=== PATIENT | male | born 1960 | race Caucasian/White ===

== ENCOUNTER 2016-04-06 11:51 | Inpatient (IN) | payer MEDICARE, OTHER ==
[2016-04-06] MEDS ORDERED: SODIUM CHLORIDE 0.9% 1,000 ML IV STA ×2 (13:09→14:30)
[2016-04-06] MEDS ORDERED: LORazepam 2 MG/ML SYRINGE IV STA (13:09)
--- NOTE | 2016-04-06 13:50 | ED ---
General Adult HPI - General Chief complaint: Nausea/Vomiting/Diarrhea Stated complaint: weakness/vomiting Time Seen by Provider: 04/06/16 13:01 Source: patient, RN notes reviewed Mode of arrival: wheelchair Limitations: no limitations - History of Present Illness Initial comments: 56-year-old male presents to the emergency department with a chief complaint of nausea and vomiting. Patient states that he is alcoholic. Patient states that 3 days ago. Alcohol he has not been drinking for 3 days. Patient states that now he cannot keep anything down there is anything symptoms patient also states he feels like he is going to have a seizure. Patient admits to history of withdrawal alcohol seizures. Patient states he was clean for about 10 years 1 but he started drinking again due to her life situations. Patient states that she is going through withdrawals and he needs help with this. Patient denies any abdominal pain any fevers. Patient states he has not yet had a seizure related to third denies any fever chills with this. Patient states he is not currently having any other symptoms at this time. Patient denies any suicidal or homicidal thoughts. Patient denies any recent fever, chills, shortness of breath, chest pain, back pain, abdominal pain, numbness or tingling, dysuria or hematuria, constipation or diarrhea, headaches or visual changes, or any other current symptoms. - Related Data Home Medications Medication Instructions Recorded Confirmed Amitriptyline HCl [Elavil] 100 - 200 mg PO HS 04/06/16 04/06/16 Cephalexin [Keflex] 500 mg PO BID 04/06/16 04/06/16 Diphenoxylate HCl/Atropine 1 tab PO Q4H PRN 04/06/16 04/06/16 [Lomotil] Famotidine [Pepcid] 40 mg PO BID 04/06/16 04/06/16 Lidocaine Viscous [Xylocaine 5 ml PO Q6H PRN 04/06/16 04/06/16 Viscous 2%] Loperamide [Imodium] 4 mg PO BID PRN 04/06/16 04/06/16 Allergies Allergy/AdvReac Type Severity Reaction Status Date / Time coconut Allergy Unknown Verified 04/06/16 13:48 milk Allergy Unknown Verified 04/06/16 13:48 peanut [Peanut Butter] Allergy Unknown Verified 04/06/16 13:48 SAW DUST Allergy Unknown Uncoded 04/06/16 11:53 Review of Systems ROS Statement: Those systems with pertinent positive or pertinent negative responses have been documented in the HPI. ROS Other: All systems not noted in ROS Statement are negative. Past Medical History Past Medical History: Cancer, GERD/Reflux, GI Bleed, Liver Disease, Seizure Disorder, Skin Disorder Additional Past Medical History / Comment(s): HX TORN ESOPHAGUS/UPPER GI BLEED, TY- KUMAR SYNDROME, MANY SEIZURES from alcohol withdrawal-LONG HX OF ETOH ABUSE MULTIPLE HEAD INJURIES, chrohns, pancreatitis, DJD,RT NEPHROSIS, pt stated used to take a pill for diabetes but no longer takes med TINNITUS C-DIFF --15. Left shoulder dislocation BUT PLACED BACK IN-"BALL IS BROKE", states fell 3 weeks ago and pt states "feels stomach is pushing into diaphragm". Skin CA-2 time removal-"years ago." History of Any Multi-Drug Resistant Organisms: C-DIFF, MRSA Date of last positivie culture/infection: 2014 MDRO Source:: lungs, groin wound Past Surgical History: Hernia Repair, Tonsillectomy Additional Past Surgical History / Comment(s): neck fusion 6 or 7 yrs ago, Skin cancer removal on face-benign "years ago." vasectomy,rt hand ganglion cystectomy , numerous cysts removed.colonoscopy Past Anesthesia/Blood Transfusion Reactions: No Reported Reaction Additional Past Anesthesia/Blood Transfusion Reaction / Comment(s): PT HAS NEVER RECEIVED BLOOD. Past Psychological History: Anxiety, Depression Additional Psychological History / Comment(s): PT STATED HE LIVES IN [facility] IN [place], ADMITS TO DRIONKING A FIFTH OF ALCOHOL PER DAY. denies any depression or thoughts of harming self. Smoking Status: Current every day smoker Past Alcohol Use History: Occasional Additional Past Alcohol Use History / Comment(s): smokes 1.5 PPD; Past Drug Use History: None Reported Additional Drug Use History / Comment(s): Pt. denies drug ABUSE - Past Family History Father Family Medical History: No Reported History Additional Family Medical History / Comment(s): FATHER IS ALIVE AND HEALTHY. Mother Family Medical History: CVA/TIA Additional Family Medical History / Comment(s): mother of a cva at age 75 years General Exam - General Exam Comments Initial Comments: General: The patient is awake and alert, in no distress, and does not appear acutely ill. Eye: Pupils are equal, round and reactive to light, extra-ocular movements are intact; there is normal conjunctiva bilaterally. No signs of icterus. Ears, nose, mouth and throat: There are moist mucous membranes and no oral lesions. Neck: The neck is supple, there is no tenderness Cardiovascular: There is a tachycardia with regular rhythm. No murmur, rub or gallop is appreciated. Respiratory: Lungs are clear to auscultation, respirations are non-labored, breath sounds are equal. No wheezes, stridor, rales, or rhonchi. Gastrointestinal: Soft, non-distended, non-tender abdomen without masses or organomegaly noted. There is no rebound or guarding present. No CVA tenderness. Bowel sounds are unremarkable. Back: There is no tenderness to palpation in the midline. There is no obvious deformity. No rashes noted. Musculoskeletal: Normal ROM, no tenderness, There is no pedal edema. There is no calf tenderness or swelling. Sensation intact. Pulses equal bilaterally 2+. Neurological: CN II-XII intact, There are no obvious motor or sensory deficits. Coordination appears grossly intact. Speech is normal. Skin: Skin is warm and dry and no rashes or lesions are noted. Psychiatric: Cooperative, appropriate mood & affect, normal judgment. Limitations: no limitations Course Vital Signs 04/06/16 04/06/16 11:53 15:25 Temperature 98.4 F 99.8 F H Pulse Rate 120 H 95 Respiratory 28 H 18 Rate Blood Pressure 174/82 176/83 O2 Sat by Pulse 98 98 Oximetry Medical Decision Making - Medical Decision Making 56-year-old male emergency department with a chief complaint presents emergency Department chief complaint of alcohol withdrawal. Patient does appear to be in alcoholic ketoacidosis. This time she was hydrated and repeat labs were taken patient continues to have an elevated lactic acid. 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 We will start patient on fluids as well as alcohol withdrawal protocol. Patient is in agreement with the plan. - Lab Data Result diagrams: 04/06/16 13:24 04/06/16 17:42 Lab Results 04/06/16 04/06/16 04/06/16 Range/Units 13:24 13:24 13:24 WBC 11.7 H (3.8-10.6) k/uL RBC 4.96 (4.30-5.90) m/uL Hgb 17.4 (13.0-17.5) gm/dL Hct 50.0 (39.0-53.0) % MCV 100.9 H (80.0-100.0) fL MCH 35.1 H (25.0-35.0) pg MCHC 34.8 (31.0-37.0) g/dL RDW 14.5 (11.5-15.5) % Plt Count 199 (150-450) k/uL Neutrophils % 79 % Lymphocytes % 14 % Monocytes % 4 % Eosinophils % 0 % Basophils % 1 % Neutrophils # 9.2 H (1.3-7.7) k/uL Lymphocytes # 1.6 (1.0-4.8) k/uL Monocytes # 0.5 (0-1.0) k/uL Eosinophils # 0.0 (0-0.7) k/uL Basophils # 0.1 (0-0.2) k/uL Macrocytosis Slight PT 11.0 (9.0-12.0) sec INR 1.1 (<1.1) APTT 23.2 (22.0-30.0) sec Sodium 134 L (137-145) mmol/L Potassium 3.6 (3.5-5.1) mmol/L Chloride 84 L (98-107) mmol/L Carbon Dioxide 13 L (22-30) mmol/L Anion Gap 37 mmol/L BUN 13 (9-20) mg/dL Creatinine 0.76 (0.66-1.25) mg/dL Est GFR (MDRD) Af Amer >60 (>60 ml/min/1.73 sqM) Est GFR (MDRD) Non-Af >60 (>60 ml/min/1.73 sqM) Glucose 134 H (74-99) mg/dL Plasma Lactic Acid Evan (0.7-2.0) mmol/L Calcium 9.7 (8.4-10.2) mg/dL Total Bilirubin 1.7 H (0.2-1.3) mg/dL AST 90 H (17-59) U/L ALT 50 (21-72) U/L Alkaline Phosphatase 115 (38-126) U/L Total Protein 8.3 H (6.3-8.2) g/dL Albumin 5.3 H (3.5-5.0) g/dL Amylase 62 (30-110) U/L Lipase 112 (23-300) U/L Urine Color Urine Appearance (Clear) Urine pH (5.0-8.0) Ur Specific Duncan (1.001-1.035) Urine Protein (Negative) Urine Glucose (UA) (Negative) Urine Ketones (Negative) Urine Blood (Negative) Urine Nitrate (Negative) Urine Bilirubin (Negative) Urine Urobilinogen (<2.0) mg/dL Ur Leukocyte Esterase (Negative) Urine RBC (0-5) /hpf Urine WBC (0-5) /hpf Ur Squamous Epith Cells (0-4) /hpf Urine Bacteria (None) /hpf Hyaline Casts (0-2) /lpf Urine Mucus (None) /hpf Serum Alcohol 141 mg/dL 04/06/16 04/06/16 04/06/16 Range/Units 13:24 15:45 17:42 WBC (3.8-10.6) k/uL RBC (4.30-5.90) m/uL Hgb (13.0-17.5) gm/dL Hct (39.0-53.0) % MCV (80.0-100.0) fL MCH (25.0-35.0) pg MCHC (31.0-37.0) g/dL RDW (11.5-15.5) % Plt Count (150-450) k/uL Neutrophils % % Lymphocytes % % Monocytes % % Eosinophils % % Basophils % % Neutrophils # (1.3-7.7) k/uL Lymphocytes # (1.0-4.8) k/uL Monocytes # (0-1.0) k/uL Eosinophils # (0-0.7) k/uL Basophils # (0-0.2) k/uL Macrocytosis PT (9.0-12.0) sec INR (<1.1) APTT (22.0-30.0) sec Sodium (137-145) mmol/L Potassium (3.5-5.1) mmol/L Chloride (98-107) mmol/L Carbon Dioxide (22-30) mmol/L Anion Gap mmol/L BUN (9-20) mg/dL Creatinine (0.66-1.25) mg/dL Est GFR (MDRD) Af Amer (>60 ml/min/1.73 sqM) Est GFR (MDRD) Non-Af (>60 ml/min/1.73 sqM) Glucose (74-99) mg/dL Plasma Lactic Acid Eavn 4.4 H* 2.6 H* (0.7-2.0) mmol/L Calcium (8.4-10.2) mg/dL Total Bilirubin (0.2-1.3) mg/dL AST (17-59) U/L ALT (21-72) U/L Alkaline Phosphatase (38-126) U/L Total Protein (6.3-8.2) g/dL Albumin (3.5-5.0) g/dL Amylase (30-110) U/L Lipase (23-300) U/L Urine Color Yellow Urine Appearance Clear (Clear) Urine pH 6.0 (5.0-8.0) Ur Specific Duncan 1.016 (1.001-1.035) Urine Protein 2+ H (Negative) Urine Glucose (UA) Negative (Negative) Urine Ketones 4+ H (Negative) Urine Blood Small H (Negative) Urine Nitrate Negative (Negative) Urine Bilirubin Negative (Negative) Urine Urobilinogen <2.0 (<2.0) mg/dL Ur Leukocyte Esterase Negative (Negative) Urine RBC <1 (0-5) /hpf Urine WBC 1 (0-5) /hpf Ur Squamous Epith Cells <1 (0-4) /hpf Urine Bacteria Rare H (None) /hpf Hyaline Casts 15 H (0-2) /lpf Urine Mucus Rare H (None) /hpf Serum Alcohol mg/dL 04/06/16 Range/Units 17:42 WBC (3.8-10.6) k/uL RBC (4.30-5.90) m/uL Hgb (13.0-17.5) gm/dL Hct (39.0-53.0) % MCV (80.0-100.0) fL MCH (25.0-35.0) pg MCHC (31.0-37.0) g/dL RDW (11.5-15.5) % Plt Count (150-450) k/uL Neutrophils % % Lymphocytes % % Monocytes % % Eosinophils % % Basophils % % Neutrophils # (1.3-7.7) k/uL Lymphocytes # (1.0-4.8) k/uL Monocytes # (0-1.0) k/uL Eosinophils # (0-0.7) k/uL Basophils # (0-0.2) k/uL Macrocytosis PT (9.0-12.0) sec INR (<1.1) APTT (22.0-30.0) sec Sodium 134 L (137-145) mmol/L Potassium 4.3 (3.5-5.1) mmol/L Chloride 93 L (98-107) mmol/L Carbon Dioxide 18 L (22-30) mmol/L Anion Gap 23 mmol/L BUN 11 (9-20) mg/dL Creatinine 0.62 L (0.66-1.25) mg/dL Est GFR (MDRD) Af Amer >60 (>60 ml/min/1.73 sqM) Est GFR (MDRD) Non-Af >60 (>60 ml/min/1.73 sqM) Glucose 102 H (74-99) mg/dL Plasma Lactic Acid Evan (0.7-2.0) mmol/L Calcium 7.8 L (8.4-10.2) mg/dL Total Bilirubin 1.6 H (0.2-1.3) mg/dL AST 81 H (17-59) U/L ALT 49 (21-72) U/L Alkaline Phosphatase 76 (38-126) U/L Total Protein 6.8 (6.3-8.2) g/dL Albumin 4.2 (3.5-5.0) g/dL Amylase (30-110) U/L Lipase (23-300) U/L Urine Color Urine Appearance (Clear) Urine pH (5.0-8.0) Ur Specific Duncan (1.001-1.035) Urine Protein (Negative) Urine Glucose (UA) (Negative) Urine Ketones (Negative) Urine Blood (Negative) Urine Nitrate (Negative) Urine Bilirubin (Negative) Urine Urobilinogen (<2.0) mg/dL Ur Leukocyte Esterase (Negative) Urine RBC (0-5) /hpf Urine WBC (0-5) /hpf Ur Squamous Epith Cells (0-4) /hpf Urine Bacteria (None) /hpf Hyaline Casts (0-2) /lpf Urine Mucus (None) /hpf Serum Alcohol mg/dL Disposition Clinical Impression: Alcohol abuse, Alcoholic ketoacidosis Disposition: ADMITTED IP TO THIS HOSP Condition: Stable Time of Disposition: 18:37 Decision Date: 04/06/16 Decision Time: 18:37
[2016-04-06 13:56] LABS: Basophils # (A) 0.1 k/uL (0-0.2); Basophils % (A) 1 %; CH 35.7; CHCM 35.5; Eosinophils % (A) 0 %; HDW 2.11; HGB 17.4 gm/dL (13.0-17.5); Luc # (Auto) 0.18; Luc % (Auto) 2; Lymphocytes # (A) 1.6 k/uL (1.0-4.8); Lymphocytes % (A) 14 %; MCH 35.1 pg (25.0-35.0); MCHC 34.8 g/dL (31.0-37.0); MCV 100.9 fL (80.0-100.0); Macrocytosis Slight; Monocytes # (A) 0.5 k/uL (0-1.0); Monocytes % (A) 4 %; Neutrophils # (A) 9.2 k/uL (1.3-7.7); Neutrophils % (A) 79 %; RBC 4.96 m/uL (4.30-5.90); RDW 14.5 % (11.5-15.5); WBC 11.7 k/uL (3.8-10.6); WBC (Perox) 10.68
[2016-04-06 14:12] LABS: INR 1.1 (<1.1); Partial Thromboplastin Time 23.2 sec (22.0-30.0)
[2016-04-06 14:24] LABS: ALT 50 U/L (21-72); AST 90 U/L (17-59); Alkaline Phosphatase 115 U/L (38-126); Amylase 62 U/L (30-110); Anion Gap 37 mmol/L; Blood Urea Nitrogen 13 mg/dL (9-20); Calcium 9.7 mg/dL (8.4-10.2); Carbon Dioxide 13 mmol/L (22-30); Chloride 84 mmol/L (98-107); Glucose 134 mg/dL (74-99); Non-African American GFR(MDRD) >60 (>60 ml/min/1.73 sqM); Potassium 3.6 mmol/L (3.5-5.1); Sodium 134 mmol/L (137-145); Total Bilirubin 1.7 mg/dL (0.2-1.3); Total Protein 8.3 g/dL (6.3-8.2)
[2016-04-06 14:32] LABS: Alcohol 141 mg/dL
--- NOTE | 2016-04-06 15:20 | XR ---
Abdomen 2 view HISTORY: Nausea vomiting and diarrhea 2 frontal views of the abdomen on 3 images Correlation to prior abdomen November Splenic calcifications are again noted. There is no bowel obstruction or pneumoperitoneum evident. Blevins rgical clips are present in the right lower quadrant. Lung bases are clear. IMPRESSION: No acute abnormalities evident
[2016-04-06 15:57] LABS: Appearance,Urine Clear (Clear); Bacteria,Urine Rare /hpf; Bilirubin,Urine Negative (Negative); Glucose,Urine (UA) Negative (Negative); Ketones,Urine 4+ (Negative); Leukocyte Esterase,Urine Negative (Negative); Mucus,Urine Rare /hpf; Nitrite,Urine Negative (Negative); Particle Count 14386; Protein,Urine 2+ (Negative); RBC,Urine <1 /hpf (0-5); Specific Gravity,Urine 1.016 (1.001-1.035); Squamous Epithelial Cell,Urine <1 /hpf (0-4); UA Billing (MACRO vs. MICRO) MICRO; Urobilinogen,Urine <2.0 mg/dL (<2.0); WBC,Urine 1 /hpf (0-5)
[2016-04-06] MEDS ORDERED: PANTOPRAZOLE 40 MG/10 ML VIAL IVP STA (16:19)
[2016-04-06 17:57] LABS: ALT 49 U/L (21-72); AST 81 U/L (17-59); Alkaline Phosphatase 76 U/L (38-126); Anion Gap 23 mmol/L; Blood Urea Nitrogen 11 mg/dL (9-20); Calcium 7.8 mg/dL (8.4-10.2); Carbon Dioxide 18 mmol/L (22-30); Chloride 93 mmol/L (98-107); Glucose 102 mg/dL (74-99); Non-African American GFR(MDRD) >60 (>60 ml/min/1.73 sqM); Sodium 134 mmol/L (137-145); Total Bilirubin 1.6 mg/dL (0.2-1.3); Total Protein 6.8 g/dL (6.3-8.2)
[2016-04-06 17:59] LABS: Potassium 4.3 mmol/L (3.5-5.1)
[2016-04-06] MEDS ORDERED: NALOXONE 0.4 MG/ML 1 ML VIAL IV PRN (18:37)
[2016-04-06] MEDS ORDERED: IBUPROFEN 400 MG TAB PO PRN (18:37)
[2016-04-06] MEDS ORDERED: ONDANSETRON 4 MG/2 ML VIAL IVP PRN (18:37)
[2016-04-06] MEDS ORDERED: THIAMINE 100 MG/ML 2 ML VIAL IM STA (18:38)
[2016-04-06] MEDS ORDERED: LORazepam 2 MG/ML SYRINGE IV PRN ×2 (18:38)
[2016-04-06] MEDS ORDERED: DIPHENOX-ATROP 2.5-0.025 MG 1 EACH TAB PO PRN (18:39)
[2016-04-06] MEDS ORDERED: LOPERAMIDE 2 MG CAP PO PRN (18:39)
[2016-04-06] MEDS ORDERED: SODIUM CHLORIDE 0.9% 1,000 ML with MVI, ADULT NO.4 WITH VIT K 10 ML, THIAMINE 100 MG, F... IV ONE ×4 (19:00)
[2016-04-06] MEDS: LORazepam 2 MG/ML SYRINGE IV PRN ×2 (19:53→22:18)
[2016-04-06 20:38] LABS: Glucose,Whole Blood 114 mg/dL (75-99)
[2016-04-06 21:33] VITALS: BMI 21.2
[2016-04-06] MEDS: SODIUM CHLORIDE 0.9% 1,000 ML IV SCH (21:34)
[2016-04-06] MEDS: FAMOTIDINE 20 MG TAB PO SCH (22:16)
[2016-04-06] MEDS: AMITRIPTYLINE HCL 50 MG TAB PO SCH (22:16)
[2016-04-06] MEDS: THIAMINE 100 MG TAB PO SCH (22:17)
[2016-04-07] MEDS: LORazepam 2 MG/ML SYRINGE IV PRN ×3 (04:01→21:41)
[2016-04-07 07:35] LABS: Glucose,Whole Blood 102 mg/dL (75-99)
[2016-04-07] MEDS: SODIUM CHLORIDE 0.9% 1,000 ML IV SCH ×4 (07:37→17:32)
[2016-04-07 07:53] LABS: Basophils # (A) 0.1 k/uL (0-0.2); Basophils % (A) 1 %; CH 35.8; CHCM 34.4; Eosinophils # (A) 0.1 k/uL (0-0.7); Eosinophils % (A) 2 %; HCT 46.5 % (39.0-53.0); HDW 2.11; HGB 15.7 gm/dL (13.0-17.5); Luc # (Auto) 0.11; Luc % (Auto) 1; Lymphocytes # (A) 1.5 k/uL (1.0-4.8); Lymphocytes % (A) 19 %; MCH 35.3 pg (25.0-35.0); MCHC 33.8 g/dL (31.0-37.0); MCV 104.5 fL (80.0-100.0); Macrocytosis Moderate; Monocytes # (A) 0.3 k/uL (0-1.0); Monocytes % (A) 3 %; Neutrophils # (A) 6.1 k/uL (1.3-7.7); Neutrophils % (A) 74 %; RBC 4.45 m/uL (4.30-5.90); RDW 14.4 % (11.5-15.5); WBC 8.2 k/uL (3.8-10.6); WBC (Perox) 8.45
[2016-04-07 08:19] LABS: ALT 47 U/L (21-72); AST 80 U/L (17-59); Alkaline Phosphatase 84 U/L (38-126); Anion Gap 17 mmol/L; Blood Urea Nitrogen 7 mg/dL (9-20); Calcium 7.7 mg/dL (8.4-10.2); Carbon Dioxide 26 mmol/L (22-30); Chloride 92 mmol/L (98-107); Glucose 99 mg/dL (74-99); Magnesium 1.4 mg/dL (1.6-2.3); Non-African American GFR(MDRD) >60 (>60 ml/min/1.73 sqM); Potassium 3.1 mmol/L (3.5-5.1); Sodium 135 mmol/L (137-145); Total Bilirubin 1.9 mg/dL (0.2-1.3); Total Protein 6.4 g/dL (6.3-8.2)
[2016-04-07 08:34] LABS: Phosphorous 1.1 mg/dL (2.5-4.5)
[2016-04-07] MEDS: FAMOTIDINE 20 MG TAB PO SCH (08:38)
[2016-04-07 11:58] LABS: Glucose,Whole Blood 160 mg/dL (75-99)
[2016-04-07] MEDS: THIAMINE 100 MG TAB PO SCH ×2 (12:41→15:45)
[2016-04-07] MEDS ORDERED: HYDROmorphone 1 MG/ML 1 ML SYRINGE IVP PRN (15:41)
[2016-04-07] MEDS ORDERED: SODIUM CHLORIDE 0.9% 1,000 ML with POTASSIUM CHLORIDE 40 MEQ IV SCH ×2 (15:45)
[2016-04-07] MEDS: POTAS-SOD-PHOS 278-164-250 MG 1 EACH PACKET PO SCH ×3 (15:45→21:35)
--- NOTE | 2016-04-07 16:16 | XR ---
EXAMINATION TYPE: XR chest 1V portable DATE OF EXAM: 04/07/2016 4:07 PM HISTORY: pneumonia. REFERENCE: Previous study dated 12/04/2015. FINDINGS: There has been a previous ACDF of the lower cervical spine. There are calcified aortopulmonary window lymph nodes. The lungs are clear. Pleural spaces are clear. Heart size is normal. IMPRESSION: NO ACUTE INTRATHORACIC ABNORMALITY.
[2016-04-07 17:17] LABS: Glucose,Whole Blood 120 mg/dL (75-99)
[2016-04-07] MEDS: NICOTINE 14MG/24HR PATCH TRANSDERM SCH (17:28)
[2016-04-07] MEDS: 0.9% NACL WITH KCL 40 MEQ/L 1,000 ML IV SCH (17:55)
[2016-04-07 20:11] LABS: Glucose,Whole Blood 132 mg/dL (75-99)
--- NOTE | 2016-04-07 20:52 | HP ---
DATE OF ADMISSION: 04/06/2016 CHIEF COMPLAINT: Nausea and vomiting. HISTORY OF PRESENT ILLNESS: This 56-year-old gentleman with a past medical history of multiple medical problems including GERD, history of gastrointestinal bleed, history of history of seizure disorder, history of esophageal obstruction, C. difficile, MRSA, being followed by Dr. Olmstead in the outpatient setting was complaining of nausea and vomiting. The patient unable to keep anything down. The patient was drinking a significant amount of alcohol up to 3 days ago according to him. There is no history of any fever, rigors or chills. No history of headache, loss of consciousness. In the ER, the evaluation showed evidence off increased WBC, and as well as possibly acidosis. Alcohol level is 141 still. The patient was admitted for further evaluation and treatment. Multiple electrolytes imbalances was also noted 1.1. There is no history of fever, rigors or chills. No history of headache, loss of consciousness or seizures. PAST MEDICAL HISTORY: History of GERD, history of GI bleed, liver disease and seizure disorder, history of C. dif MRSA. Medications prior to admission include: 1. Atropine 1 tablet q.4 p.r.n. 2. Xylocaine . 3. Pepcid 40 mg p.o. b.i.d. 4. Imodium 4 mg b.i.d. p.r.n. 6. Keflex 500 mg p.o. b.i.d. ALLERGIES: MILK, PEANUTS, SAWDUST. FAMILY HISTORY: No history of heart attacks or strokes in the family. SOCIAL HISTORY: History of smoking on a daily basis, history of alcohol as mentioned earlier. REVIEW OF SYSTEMS: ENT: No diminished hearing. No diminished vision. CARDIOVASCULAR: No angina or palpitations. RESPIRATORY: As mentioned earlier. GASTROINTESTINAL: As mentioned earlier. : No dysuria. Nervous system: No numbness or weakness. ALLERGY/IMMUNOLOGY: No asthma or hayfever. MUSCULOSKELETAL: As mentioned earlier. HEMATOLOGY/ONCOLOGY: No history of anemia. ENDOCRINE: No history of diabetes or hypothyroidism. CONSTITUTIONAL: As mentioned earlier. DERMATOLOGY: Negative. RHEUMATOLOGY: Negative. PSYCHIATRY: As mentioned earlier. PHYSICAL EXAMINATION: The patient is alert and oriented times three. Pulse 88, blood pressure ntd, respirations 18, temperature 98 degrees, pulse ox 95% on room air. HEENT: Conjunctivae normal. Oral mucosa moist. NECK: No jugular venous distention. No carotid bruit. No lymph node enlargement. No thyroid enlargement. CARDIOVASCULAR: S1, S2 muffled. No S3, no S4. RESPIRATORY: Breath sounds diminished at the bases. Bilateral scattered rhonchi and crackles. Expiratory wheezing also present. ABDOMEN: Soft and nontender. No mass palpable. LEGS: No edema. No swelling. CENTRAL NERVOUS SYSTEM: Higher functions as mentioned earlier. Moves all four limbs. Mild diffuse weakness. LYMPHATICS: No lymph nodes palpable in the neck, axillae or groin. SKIN: No ulcer, rash or bleeding. LABS: WBC 8.2, hemoglobin 15.7, sodium 130, potassium 3.1 and phosphorus 1.1. ASSESSMENT: 1. Acute gastritis with severe dehydration. 2. Alcohol intoxication withdrawal. 3. Change in mental status, metabolic encephalopathy, multifactorial. 4. Hypophosphatemia. 5. Hypomagnesemia. 6. Increased bilirubin. 7. Increased AST with possible alcoholic hepatitis, mild. 8. Increased random blood sugar. 9. Hyponatremia. 10. Increased MCV secondary to alcohol. 11. Increased WBC. 12. History of gastroesophageal reflux disease. 13. History of gastrointestinal bleed. 14. History of chronic liver disease. 15. History of seizure disorder. 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 17. History of seizure disorder. 18. History of ETOH. 19. History of nicotine dependence. 20. History of skin cancer. 21. History of Clostridium difficile. 22. History of Methicillin-resistant Staph aureus. 23. Cervical fusion and degenerative joint disease. 24. Anxiety, depression, not otherwise specified. 25. History of continued ongoing nicotine dependence. 26. History of Crohn's disease. 27. History of delirium tremens. 28. Hypokalemia. 29. FULL CODE. RECOMMENDATIONS: In this 56-year-old gentleman who presented with multiple complex medical issues, we will monitor the patient closely. Continue the current medications. Continue symptomatic treatment. Admitted with multiple medical issues, admitted with nausea and vomiting and possibly related to gastritis and dehydration and other multiple complex medical issues. Once the patient symptomatically is also patient also had hypokalemia which will be corrected and as well as hypophosphatemia. This electrolytes abnormalities will be corrected and continued follow-up. Otherwise, continue the rest of the medications. Recommended Protonix. Otherwise, we will resume the home medications. The patient follows with Dr. Olmstead in the outpatient setting. Also recommend the patient follow with Dr. Olmstead closely in the outpatient setting. DVT prophylaxis. See orders for further details. MTDD
[2016-04-07 21:34] VITALS: RESP 16
[2016-04-07] MEDS: AMITRIPTYLINE HCL 50 MG TAB PO SCH (21:34)
[2016-04-07] MEDS: PANTOPRAZOLE 40 MG/10 ML VIAL IVP SCH (21:34)
[2016-04-07] MEDS: POTASSIUM CHLORIDE ER 20 MEQ TAB.ER PO SCH (21:35)
[2016-04-07] MEDS: HEPARIN SODIUM,PORCINE 5,000 UNIT/ML 1 ML VIAL SQ SCH (21:35)
[2016-04-08] MEDS: LORazepam 2 MG/ML SYRINGE IV PRN ×2 (01:53→08:18)
[2016-04-08] MEDS: 0.9% NACL WITH KCL 40 MEQ/L 1,000 ML IV SCH ×2 (05:27→12:57)
[2016-04-08 07:45] LABS: Glucose,Whole Blood 101 mg/dL (75-99)
[2016-04-08 08:11] VITALS: BP 145/85; PULSE 90; TEMP 99
[2016-04-08] MEDS: NICOTINE 14MG/24HR PATCH TRANSDERM SCH (08:12)
[2016-04-08] MEDS: POTAS-SOD-PHOS 278-164-250 MG 1 EACH PACKET PO SCH (08:13)
[2016-04-08] MEDS: POTASSIUM CHLORIDE ER 20 MEQ TAB.ER PO SCH (08:13)
[2016-04-08] MEDS: PANTOPRAZOLE 40 MG/10 ML VIAL IVP SCH (08:13)
[2016-04-08] MEDS: HEPARIN SODIUM,PORCINE 5,000 UNIT/ML 1 ML VIAL SQ SCH (08:13)
[2016-04-08] MEDS ORDERED: Potassium Replacement Protocol 1 EACH MISC MISCELLANE PRN (10:34)
[2016-04-08 11:40] LABS: Glucose,Whole Blood 147 mg/dL (75-99)
[2016-04-08] MEDS ORDERED: FOLIC ACID 1 MG TAB PO SCH (12:00)
[2016-04-08] MEDS ORDERED: MULTIVITAMINS, THERA 1 EACH TAB PO SCH (12:00)
[2016-04-08 12:40] LABS: ALT 75 U/L (21-72); AST 109 U/L (17-59); Alkaline Phosphatase 72 U/L (38-126); Anion Gap 12 mmol/L; Blood Urea Nitrogen 6 mg/dL (9-20); Calcium 7.6 mg/dL (8.4-10.2); Carbon Dioxide 26 mmol/L (22-30); Chloride 96 mmol/L (98-107); Glucose 147 mg/dL (74-99); Non-African American GFR(MDRD) >60 (>60 ml/min/1.73 sqM); Potassium 3.9 mmol/L (3.5-5.1); Sodium 134 mmol/L (137-145); Total Bilirubin 1.7 mg/dL (0.2-1.3); Total Protein 5.9 g/dL (6.3-8.2)
[2016-04-08 12:48] LABS: Basophils % (A) 1 %; CH 35.1; CHCM 34.4; Eosinophils # (A) 0.2 k/uL (0-0.7); Eosinophils % (A) 3 %; HCT 45.2 % (39.0-53.0); HDW 2.11; Luc # (Auto) 0.12; Luc % (Auto) 2; Lymphocytes # (A) 1.7 k/uL (1.0-4.8); Lymphocytes % (A) 27 %; MCH 33.9 pg (25.0-35.0); MCHC 33.2 g/dL (31.0-37.0); MCV 102.4 fL (80.0-100.0); Macrocytosis Slight; Monocytes # (A) 0.3 k/uL (0-1.0); Monocytes % (A) 5 %; Neutrophils % (A) 63 %; RBC 4.41 m/uL (4.30-5.90); WBC 6.3 k/uL (3.8-10.6)
[2016-04-08] MEDS: POTASSIUM CHLORIDE 10 MEQ in WATER FOR INJECTION 1 100ML.BAG IVPB SCH (12:56)
[2016-04-08] MEDS: MAGNESIUM SULFATE-D5W PMX 1 GM in DEXTROSE/WATER 1 100ML.BAG IVPB SCH (12:56)
[2016-04-08] MEDS: THIAMINE 100 MG TAB PO SCH (12:57)
[2016-04-08] MEDS ORDERED: MAG HYDROX/AL HYDROX/SIMETH 30 ML CUP PO SCH (13:00)
--- NOTE | 2016-04-09 08:37 | DS ---
DATE OF ADMISSION: 04/06/2016 DATE OF DISCHARGE: 04/08/2016 A 56-year-old admitted with gastroesophageal reflux disease, alcoholic gastritis and alcohol withdrawal and patient is not requiring too much of Ativan. Patient will be discharged today and his electrolytes will be replaced. The patient's phosphorus is also low as patient is n.p.o., which was supplemented yesterday and once he starts eating it should be okay. His electrolytes will be supplemented. Repeat electrolytes will be obtained and patient will be discharged after that. The patient does have alcoholic gastritis. Patient is seen and examined on the day of discharge. Vitals are stable. PHYSICAL EXAMINATION: GENERAL: The patient is alert and oriented x3, not in any acute distress. Well developed, well nourished. HEENT: Pupils are round and equally reacting to light. EOMI. No scleral icterus. No conjunctival pallor. Normocephalic, atraumatic. No pharyngeal erythema. No thyromegaly. CARDIOVASCULAR: S1 and S2 present. No murmurs, rubs, or gallops. PULMONARY: Chest is clear to auscultation, no wheezing or crackles. ABDOMEN: Soft, nontender, nondistended, normoactive bowel sounds. No palpable organomegaly. MUSCULOSKELETAL: No joint swelling or deformity. EXTREMITIES: No cyanosis, clubbing, or pedal edema. NEUROLOGICAL: Gross neurological examination did not reveal any focal deficits. SKIN: No rashes. Laboratory data was reviewed from yesterday. I will repeat labs for him again considering his significant electrolyte abnormalities. Regarding discharge medications, please refer to my depart summary. DISCHARGE DIET: Low spicy diet, avoid alcohol and caffeine. Activity as tolerated. Alcohol cessation counseling was provided. FINAL DIAGNOSES: 1. Alcoholic gastritis. 2. Alcohol intoxication and patient was watched for withdrawals, monitored for withdrawals. 3. Toxic metabolic encephalopathy, multifactorial secondary to alcoholism and electrolyte abnormalities. 4. Hypomagnesemia secondary to alcoholism. 5. Acute alcoholic hepatitis. 6. Hypovolemic hyponatremia. 7. Macrocytosis secondary to chronic alcohol use. The patient will be discharged today. Spent greater than 35 minutes in total discharge process. Patient will follow with Dr. Olmstead in about 3 to 7 days. Will advance the diet to soft diet today.
[2016-04-09] MEDS ORDERED: PANTOPRAZOLE 40 MG TABLET PO SCH (09:00)
== END 2016-04-08 18:38 | disposition home or self-care (01) | DRG 391 ==
LOC: EC 11:51 → 5MS5E 18:43
PROVIDERS: ADMIT Internal Medicine; ATTEND Internal Medicine
PROC: HZ2ZZZZ Detoxification Services for Substance Abuse Treatment (ICD-10-PCS; principal; 2016-04-06)
DX: K29.20 Alcoholic gastritis without bleeding (principal); G92 Toxic encephalopathy; E87.2 Acidosis; K70.10 Alcoholic hepatitis without ascites; E87.1 Hypo-osmolality and hyponatremia; K50.90 Crohn's disease, unspecified, without complications; F10.239 Alcohol dependence with withdrawal, unspecified; E83.42 Hypomagnesemia; K21.9 Gastro-esophageal reflux disease without esophagitis; F10.229 Alcohol dependence with intoxication, unspecified; D75.89 Other specified diseases of blood and blood-forming organs; K29.00 Acute gastritis without bleeding; E86.0 Dehydration; E87.6 Hypokalemia; E86.1 Hypovolemia; E83.39 Other disorders of phosphorus metabolism; F41.9 Anxiety disorder, unspecified; F32.9 Major depressive disorder, single episode, unspecified; R73.09 Other abnormal glucose; G40.909 Epilepsy, unspecified, not intractable, without status epilepticus; R53.1 Weakness; D72.829 Elevated white blood cell count, unspecified; F17.200 Nicotine dependence, unspecified, uncomplicated; M19.90 Unspecified osteoarthritis, unspecified site; Z91.81 History of falling; Z86.14 Personal history of Methicillin resistant Staphylococcus aureus infection; Z87.19 Personal history of other diseases of the digestive system; Z85.828 Personal history of other malignant neoplasm of skin; Z82.3 Family history of stroke; Z98.1 Arthrodesis status; Z71.41 Alcohol abuse counseling and surveillance of alcoholic; Z87.448 Personal history of other diseases of urinary system; Z87.828 Personal history of other (healed) physical injury and trauma; Z86.19 Personal history of other infectious and parasitic diseases; Z98.52 Vasectomy status; Z16.24 Resistance to multiple antibiotics; Z87.2 Personal history of diseases of the skin and subcutaneous tissue; Z86.69 Personal history of other diseases of the nervous system and sense organs; Z91.011 Allergy to milk products; Z91.010 Allergy to peanuts; Z91.018 Allergy to other foods; Z86.39 Personal history of other endocrine, nutritional and metabolic disease; Z91.048 Other nonmedicinal substance allergy status; Z79.2 Long term (current) use of antibiotics; Z79.899 Other long term (current) drug therapy; Y90.6 Blood alcohol level of 120-199 mg/100 ml
CPT/HCPCS: 36415; 71010; 74020; 80053; 80320; 81001; 82150; 83605; 83690; 83735; 84100; 85025; 85610; 85730; 96361; 96365; 96372; 96375; 99285

== ENCOUNTER 2016-04-25 21:05 | Inpatient (IN) | payer MEDICARE, OTHER ==
[2016-04-25] MEDS ORDERED: SODIUM CHLORIDE 0.9% 1,000 ML IV STA (21:45)
--- NOTE | 2016-04-25 21:53 | ED ---
General Adult HPI - General Chief complaint: Abdominal Pain Stated complaint: abd pain Time Seen by Provider: 04/25/16 21:27 Source: patient, EMS, RN notes reviewed, old records reviewed Mode of arrival: EMS Limitations: no limitations - History of Present Illness Initial comments: Chief complaint history of present illness a 56-year-old male with that she's not alcoholic. Drinking frequently. Fell several days ago in his home. Has a bruise to his right for it. Today he called EMS because when he bent over to put his socks on he had severe pain to the right upper quadrant area. EMS gave 5 mg of morphine en route. No pain at this time. - Related Data Home Medications Medication Instructions Recorded Confirmed Amitriptyline HCl [Elavil] 100 - 200 mg PO HS 04/06/16 04/06/16 Diphenoxylate HCl/Atropine 1 tab PO Q4H PRN 04/06/16 04/06/16 [Lomotil] Lidocaine Viscous [Xylocaine 5 ml PO Q6H PRN 04/06/16 04/06/16 Viscous 2%] Loperamide [Imodium] 4 mg PO BID PRN 04/06/16 04/06/16 Previous Rx's Medication Instructions Recorded LORazepam [Ativan] 1 mg PO TID PRN #20 tab 04/08/16 Omeprazole [PriLOSEC] 40 mg PO AC-BRKFST #14 capsule. 04/08/16 Thiamine [Vitamin B-1] 100 mg PO DAILY #30 tablet 04/08/16 Allergies Allergy/AdvReac Type Severity Reaction Status Date / Time coconut Allergy Unknown Verified 04/06/16 13:48 milk Allergy Unknown Verified 04/06/16 13:48 peanut [Peanut Butter] Allergy Unknown Verified 04/06/16 13:48 SAW DUST Allergy Unknown Uncoded 04/06/16 11:53 Review of Systems ROS Statement: Those systems with pertinent positive or pertinent negative responses have been documented in the HPI. Review of systems. Patient's denying any headache at this time no visual acuity changes denies any chest pain or abdominal pain at this time. No nausea no vomiting no back pain. Does have pain to the ball of his foot on his left foot because of the thinks having stepped on some glass several weeks ago. All systems were reviewed past medical problems insulin-dependent diabetes mellitus , Crohn's, cellulitis treated 14 [facility] several days ago. Also a skin cancer right cheek. Surgeries include hernia repairs and cervical fusion. Family history mother had thyroid cancer. Patient denies ALLERGIES. He does smoke and states she's not alcoholic. He has been through rehabilitation four times. ROS Other: All systems not noted in ROS Statement are negative. Past Medical History Past Medical History: Cancer, GERD/Reflux, GI Bleed, Liver Disease, Seizure Disorder, Skin Disorder Additional Past Medical History / Comment(s): HX TORN ESOPHAGUS/UPPER GI BLEED, TY- KUMAR SYNDROME, MANY SEIZURES from alcohol withdrawal-LONG HX OF ETOH ABUSE MULTIPLE HEAD INJURIES, crohns, pancreatitis, DJD,RT NEPHROSIS, TINNITUS C-DIFF 02-23-15. Left shoulder dislocation BUT PLACED BACK IN-"BALL IS BROKE",. Skin CA-2 time removal-"years ago." History of Any Multi-Drug Resistant Organisms: C-DIFF, MRSA Date of last positivie culture/infection: 2014 MDRO Source:: lungs, groin wound Past Surgical History: Hernia Repair, Tonsillectomy Additional Past Surgical History / Comment(s): neck fusion 6 or 7 yrs ago, Skin cancer removal on face-benign "years ago." vasectomy,rt hand ganglion cystectomy , numerous cysts removed.colonoscopy Past Anesthesia/Blood Transfusion Reactions: No Reported Reaction Additional Past Anesthesia/Blood Transfusion Reaction / Comment(s): PT HAS NEVER RECEIVED BLOOD. Past Psychological History: Anxiety, Depression Additional Psychological History / Comment(s): PT STATED [facility] IN [facility] IN [place], ADMITS TO DRINKING A FIFTH OF whiskey PER DAY. denies any depression or thoughts of harming self. Smoking Status: Current every day smoker Past Alcohol Use History: Abuse Additional Past Alcohol Use History / Comment(s): smokes 1.5 PPD; Past Drug Use History: None Reported Additional Drug Use History / Comment(s): Pt. denies drug ABUSE - Past Family History Father Family Medical History: No Reported History Additional Family Medical History / Comment(s): FATHER IS ALIVE AND HEALTHY. Mother Family Medical History: CVA/TIA Additional Family Medical History / Comment(s): mother of a cva at age 75 years General Exam - General Exam Comments Initial Comments: General: The patient is awake , states he had right upper quadrant pain when he bent over to put his socks on. he Called the ambulance. Vital signs temp 98.1 pulse 18 pulse ox 90% room air blood pressure 156/80 elevated systolic noted. Patient be referred back to his family physician within the week Eye: Pupils are equal, and pinpoint because EMS gave him 5 mg of morphine IV push., extra-ocular movements are intact; there is normal conjunctiva bilaterally. No signs of icterus. Healed bruise over his right Curiel. Patient reports she fell several days ago Ears, nose, mouth and throat: There are moist mucous membranes and no oral lesions. Neck: The neck is supple, there is no tenderness S history of cervical fusion. Cardiovascular: There is a regular rate and rhythm. No murmur, rub or gallop is appreciated. No chest pain now. Respiratory: Lungs are clear to auscultation, respirations are non-labored, breath sounds are equal. No wheezes, stridor, rales, or rhonchi. Gastrointestinal: Soft, non-distended, tender right upper quadrant muscles. Positive Carnetts sign.. There is no rebound or guarding present. No CVA tenderness. Bowel sounds are unremarkable. No right upper quadrant or epigastric area pain. Back: There is no tenderness to palpation in the midline. There is no obvious deformity. No rashes noted. Musculoskeletal: Normal ROM, no tenderness, There is no pedal edema. There is no calf tenderness or swelling. Sensation intact. Pulses equal bilaterally 2+. Patient has a callus on the base of his left ball of his foot area complains of pain in this area thinks he may have stepped on a piece of glass several weeks ago. X-ray didn't being taken. Also possibility of a callus causing pain when he walks on it. Neurological: CN II-XII intact, There are no obvious motor or sensory deficits. Coordination appears grossly intact. Speech is normal. Skin: Skin is warm and dry and no rashes or lesions are noted. Psychiatric: Denies depression. Chronic alcoholism. Limitations: no limitations Course Vital Signs 04/25/16 04/25/16 21:10 23:00 Temperature 98.1 F Pulse Rate 109 H 105 H Respiratory 18 20 Rate Blood Pressure 156/80 150/81 O2 Sat by Pulse 98 97 Oximetry Medical Decision Making - Medical Decision Making Medical decision-making. Patient's white count is 10 hemoglobin 17 hematocrit 53. INR is 1.1. Patient's potassium is 4.3 with a BUN 12 creatinine 0.6 and GFR greater than 60. Glucose 77. Amylase lipase within normal limits. Plasma lactic acid elevated 3.7. Troponin less than 0.012. Breath alcohol CT the brain was done and reviewed by radiologist entire report was reviewed his final impression is mild right for head soft tissue swelling. No acute intracranial sequelae from trauma is seen at this time. As read by Dr. mandel X-ray of the chest was done reviewed by radiologist entire report was reviewed his final impression is no new or acute findings. As read by Dr. mandel X-ray of the abdomen was done reviewed radiologist, entire report was reviewed, scattered air-fluid levels with borderline prominent small and large bowel loops., May reflect a mild ileus. Possibility of a low grade incomplete distal obstruction is considered less likely although not entirely excluded. The findings could be correlated clinically to guide further imaging follow-up is clinically indicated. As read by Dr. manedl X-ray of the left foot was done and reviewed by radiologist his final impression is; no definite acute osseous abnormality nor radiopaque foreign body seen. As read by Dr. mandel The patient's lactic acid is elevated, CK 222 and an MB fraction of 4.3. The patient's EKG does not show any acute changes. As compared to one done on September of last year and they're similar. He does have a past history of cardiac injury per old EKG. And current one. The patient be admitted for observation for the evening. - Lab Data Result diagrams: 04/25/16 22:46 04/25/16 22:46 Lab Results 04/25/16 04/25/16 04/25/16 Range/Units 22:46 22:46 22:46 WBC 10.0 (3.8-10.6) k/uL RBC 5.03 (4.30-5.90) m/uL Hgb 17.5 (13.0-17.5) gm/dL Hct 53.0 (39.0-53.0) % MCV 105.4 H (80.0-100.0) fL MCH 34.8 (25.0-35.0) pg MCHC 33.0 (31.0-37.0) g/dL RDW 14.5 (11.5-15.5) % Plt Count 247 D (150-450) k/uL Neutrophils % 68 % Lymphocytes % 26 % Monocytes % 3 % Eosinophils % 1 % Basophils % 1 % Neutrophils # 6.8 (1.3-7.7) k/uL Lymphocytes # 2.6 (1.0-4.8) k/uL Monocytes # 0.3 (0-1.0) k/uL Eosinophils # 0.1 (0-0.7) k/uL Basophils # 0.1 (0-0.2) k/uL Macrocytosis Moderate PT 11.1 (9.0-12.0) sec INR 1.1 (<1.1) APTT 24.3 (22.0-30.0) sec Sodium 141 (137-145) mmol/L Potassium 4.3 (3.5-5.1) mmol/L Chloride 100 (98-107) mmol/L Carbon Dioxide 15 L (22-30) mmol/L Anion Gap 26 mmol/L BUN 12 (9-20) mg/dL Creatinine 0.60 L (0.66-1.25) mg/dL Est GFR (MDRD) Af Amer >60 (>60 ml/min/1.73 sqM) Est GFR (MDRD) Non-Af >60 (>60 ml/min/1.73 sqM) Glucose 77 (74-99) mg/dL Plasma Lactic Acid Evan (0.7-2.0) mmol/L Calcium 8.9 (8.4-10.2) mg/dL Total Bilirubin 1.3 (0.2-1.3) mg/dL AST 66 H (17-59) U/L ALT 63 (21-72) U/L Alkaline Phosphatase 107 (38-126) U/L Total Creatine Kinase (55-170) U/L CK-MB (CK-2) (0.0-2.4) ng/mL CK-MB (CK-2) Rel Index Troponin I (0.000-0.034) ng/mL Total Protein 7.8 (6.3-8.2) g/dL Albumin 4.8 (3.5-5.0) g/dL Amylase 47 (30-110) U/L Lipase 64 (23-300) U/L 04/25/16 04/25/16 Range/Units 22:46 22:46 WBC (3.8-10.6) k/uL RBC (4.30-5.90) m/uL Hgb (13.0-17.5) gm/dL Hct (39.0-53.0) % MCV (80.0-100.0) fL MCH (25.0-35.0) pg MCHC (31.0-37.0) g/dL RDW (11.5-15.5) % Plt Count (150-450) k/uL Neutrophils % % Lymphocytes % % Monocytes % % Eosinophils % % Basophils % % Neutrophils # (1.3-7.7) k/uL Lymphocytes # (1.0-4.8) k/uL Monocytes # (0-1.0) k/uL Eosinophils # (0-0.7) k/uL Basophils # (0-0.2) k/uL Macrocytosis PT (9.0-12.0) sec INR (<1.1) APTT (22.0-30.0) sec Sodium (137-145) mmol/L Potassium (3.5-5.1) mmol/L Chloride (98-107) mmol/L Carbon Dioxide (22-30) mmol/L Anion Gap mmol/L BUN (9-20) mg/dL Creatinine (0.66-1.25) mg/dL Est GFR (MDRD) Af Amer (>60 ml/min/1.73 sqM) Est GFR (MDRD) Non-Af (>60 ml/min/1.73 sqM) Glucose (74-99) mg/dL Plasma Lactic Acid Evan 3.7 H* (0.7-2.0) mmol/L Calcium (8.4-10.2) mg/dL Total Bilirubin (0.2-1.3) mg/dL AST (17-59) U/L ALT (21-72) U/L Alkaline Phosphatase (38-126) U/L Total Creatine Kinase 222 H (55-170) U/L CK-MB (CK-2) 4.3 H* (0.0-2.4) ng/mL CK-MB (CK-2) Rel Index 1.9 Troponin I <0.012 (0.000-0.034) ng/mL Total Protein (6.3-8.2) g/dL Albumin (3.5-5.0) g/dL Amylase (30-110) U/L Lipase (23-300) U/L Disposition Clinical Impression: Abdominal pain, Chronic alcoholism Disposition: ADMITTED IP TO THIS HOSP Condition: Fair
--- NOTE | 2016-04-25 22:46 | XR ---
EXAM: XR Chest, 2 Views. CLINICAL HISTORY: Reason: abdominal pain TECHNIQUE: Frontal and lateral views of the chest. COMPARISON: 04/07/16 portable chest. FINDINGS: Lungs: Unremarkable. No consolidation. Pleural spaces: Unremarkable. No pneumothorax. Heart: Unremarkable. No cardiomegaly. Mediastinum: There is again a calcified node in the AP window. Bones: Stable including partially imaged cervical fusion. No acute fracture. IMPRESSION: No new or acute findings.
--- NOTE | 2016-04-25 22:48 | XR ---
EXAM: XR Left Foot Complete, 3 or More Views. CLINICAL HISTORY: Reason: Possible foreign body near second MTP TECHNIQUE: Frontal, lateral and oblique views of the left foot. COMPARISON: No relevant prior studies available. FINDINGS: Bones: The osseous structures are intact without acute fracture seen. Tiny well-corticated ossific focus is present along the dorsal margin of the distal talus, and appears chronic, perhaps as the result of previous avulsion-type injury. Joints: Unremarkable. No dislocation. Soft tissues: No radiopaque foreign body is identified. IMPRESSION: No definite acute osseous abnormality nor radiopaque foreign body seen.
--- NOTE | 2016-04-25 22:57 | XR ---
EXAM: XR Abdomen Complete, 2 or More Views. CLINICAL HISTORY: Reason: abdominal pain TECHNIQUE: Frontal view of the abdomen/pelvis with upright view of the abdomen. COMPARISON: No relevant prior studies available. FINDINGS: Free air: None. Gastrointestinal tract: Air and stool-filled colon throughout, including some present within the pelvis. There are a few mildly prominent small bowel loops in the left upper and mid abdomen which demonstrate air-fluid levels as do upper abdominal colonic loops. Visualized organs and vessels: Right lower quadrant surgical clips overlying the inguinal region. Bones: Degenerative changes are noted. No acute fracture. IMPRESSION: Scattered air-fluid levels within borderline prominent small and large bowel loops, that may reflect a mild ileus. Possibility of a low-grade or incomplete distal obstruction is considered less likely although not entirely excluded. The findings could be correlated clinically to guide further imaging follow-up as clinically indicated.
--- NOTE | 2016-04-25 23:06 | CT ---
EXAM: CT Head Without Intravenous Contrast. CLINICAL HISTORY: Reason: Alcoholic, fell bruise right forehead TECHNIQUE: Axial computed tomography images of the head/brain without intravenous contrast. CTDI is 57.40 mGy and DLP is 1012.70 mGy-cm COMPARISON: 01/18/[address] FINDINGS: Brain: There is again generalized atrophy present. No hemorrhage. No significant white matter disease. No edema. Ventricles: Unremarkable. No ventriculomegaly. Bones: No acute fracture. Sinuses: Scattered minor paranasal sinus mucosal thickening without air-fluid level. Mastoid air cells: Unremarkable as visualized. No mastoid effusion. Extracranial soft tissues: Mild right forehead soft tissue swelling. Other findings: Intracranial atherosclerosis is again present. IMPRESSION: 1. Mild right forehead soft tissue swelling. 2. No acute intracranial sequela from trauma is seen at this time.
[2016-04-25 23:10] LABS: Basophils # (A) 0.1 k/uL (0-0.2); Basophils % (A) 1 %; CH 34.8; CHCM 33.2; Eosinophils # (A) 0.1 k/uL (0-0.7); Eosinophils % (A) 1 %; HDW 2.07; HGB 17.5 gm/dL (13.0-17.5); Luc # (Auto) 0.16; Luc % (Auto) 2; Lymphocytes # (A) 2.6 k/uL (1.0-4.8); Lymphocytes % (A) 26 %; MCH 34.8 pg (25.0-35.0); MCV 105.4 fL (80.0-100.0); Macrocytosis Moderate; Mean Platelet Volume 6.8; Monocytes # (A) 0.3 k/uL (0-1.0); Monocytes % (A) 3 %; Neutrophils # (A) 6.8 k/uL (1.3-7.7); Neutrophils % (A) 68 %; RBC 5.03 m/uL (4.30-5.90); RDW 14.5 % (11.5-15.5); WBC (Perox) 9.71
[2016-04-25 23:24] LABS: INR 1.1 (<1.1); Partial Thromboplastin Time 24.3 sec (22.0-30.0); Prothrombin Time 11.1 sec (9.0-12.0)
[2016-04-25 23:34] LABS: Creatine Kinase 222 U/L (55-170)
[2016-04-25 23:36] LABS: ALT 63 U/L (21-72); AST 66 U/L (17-59); Alkaline Phosphatase 107 U/L (38-126); Amylase 47 U/L (30-110); Anion Gap 26 mmol/L; Blood Urea Nitrogen 12 mg/dL (9-20); Calcium 8.9 mg/dL (8.4-10.2); Carbon Dioxide 15 mmol/L (22-30); Chloride 100 mmol/L (98-107); Glucose 77 mg/dL (74-99); Non-African American GFR(MDRD) >60 (>60 ml/min/1.73 sqM); Potassium 4.3 mmol/L (3.5-5.1); Sodium 141 mmol/L (137-145); Total Bilirubin 1.3 mg/dL (0.2-1.3); Total Protein 7.8 g/dL (6.3-8.2)
[2016-04-25 23:46] LABS: Troponin I <0.012 ng/mL (0.000-0.034)
[2016-04-25 23:57] LABS: Creatine Kinase MB 4.3 ng/mL (0.0-2.4)
[2016-04-26] MEDS ORDERED: SODIUM CHLORIDE 0.9% 1,000 ML with MVI, ADULT NO.4 WITH VIT K 10 ML, THIAMINE 100 MG, F... IV ONE ×4 (01:19)
[2016-04-26] MEDS ORDERED: ONDANSETRON 4 MG/2 ML VIAL IVP PRN (01:22)
[2016-04-26] MEDS ORDERED: NALOXONE 0.4 MG/ML 1 ML VIAL IV PRN (01:22)
[2016-04-26 02:03] LABS: Reflex Lactic Acid Y
[2016-04-26 02:57] VITALS: BMI 21.0
[2016-04-26] MEDS: LORazepam 2 MG/ML SYRINGE IV PRN ×10 (03:02→23:26)
[2016-04-26 03:29] LABS: Glucose,Whole Blood 121 mg/dL (75-99)
[2016-04-26 06:14] LABS: Glucose,Whole Blood 121 mg/dL (75-99)
[2016-04-26] MEDS: INSULIN LISPRO (humaLOG) 300 UNIT/3 ML VIAL SQ SCH ×4 (06:46→20:55)
[2016-04-26 07:02] LABS: Troponin I 0.013 ng/mL (0.000-0.034)
[2016-04-26 07:08] LABS: Creatine Kinase MB 3.2 ng/mL (0.0-2.4)
[2016-04-26] MEDS ORDERED: PANTOPRAZOLE 40 MG/10 ML VIAL IV SCH (09:00)
[2016-04-26] MEDS: NICOTINE 14MG/24HR PATCH TRANSDERM SCH (09:28)
[2016-04-26 10:45] LABS: Hemoglobin A1C 6.1 % (4.2-6.1)
[2016-04-26 11:48] LABS: Glucose,Whole Blood 142 mg/dL (75-99)
[2016-04-26] MEDS ORDERED: Potassium Replacement Protocol 1 EACH MISC MISCELLANE PRN (11:49)
[2016-04-26] MEDS ORDERED: Magnesium Replacement Protocol 1 EACH MISC MISCELLANE PRN (11:49)
[2016-04-26 12:07] LABS: Creatine Kinase 130 U/L (55-170)
[2016-04-26 12:20] LABS: Troponin I <0.012 ng/mL (0.000-0.034)
[2016-04-26] MEDS: MAGNESIUM SULFATE-D5W PMX 1 GM in DEXTROSE/WATER 1 100ML.BAG IVPB SCH ×3 (14:39→17:22)
[2016-04-26] MEDS: DEXTROSE 5%-0.45% NACL 1,000 ML IV SCH ×2 (14:42→20:52)
--- NOTE | 2016-04-26 15:34 | P.HPIM ---
History of Present Illness H&P Date: 04/26/16 Chief Complaint: Epigastric pain This is a 56-year-old gentleman with past medical history noted below significant for heavy alcohol abuse with multiple hospitalization in the recent past who presented to the emergency room with worsening epigastric pain. Patient said that he usually drinks whiskey on a daily basis. He'll drink approximately a pint per day. He was having progressive epigastric pain yesterday and decided to come to the emergency room. He also reports being nauseated. Patient was evaluated in the emergency room in 12 leads EKG showed sinus tachycardia. Patient had evidence of dehydration with elevated lactate. No obvious source of infection or clinical evidence of infection. Patient was managed with IV fluid hydration and IV Ativan and was admitted to telemetry floor for further evaluation. He is feeling more comfortable right now. He was able to tolerate his breakfast with no difficulty. Review of Systems Review of system: 14 points review of systems were obtained and were negative except to what were mentioned in the HPI. Past Medical History Past Medical History: Cancer, Diabetes Mellitus, GERD/Reflux, GI Bleed, Liver Disease, Seizure Disorder, Skin Disorder Additional Past Medical History / Comment(s): HX TORN ESOPHAGUS/UPPER GI BLEED, TY- KUMAR SYNDROME, MANY SEIZURES from alcohol withdrawal-LONG HX OF ETOH ABUSE MULTIPLE HEAD INJURIES, crohns, pancreatitis, DJD,RT NEPHROSIS, TINNITUS C-DIFF 1-10-15. Left shoulder dislocation BUT PLACED BACK IN-"BALL IS BROKE",. Skin CA-2 time removal-"years ago." History of Any Multi-Drug Resistant Organisms: C-DIFF, MRSA Date of last positivie culture/infection: 2014 MDRO Source:: lungs, groin wound Past Surgical History: Hernia Repair, Tonsillectomy Additional Past Surgical History / Comment(s): neck fusion 6 or 7 yrs ago, Skin cancer removal on face-benign "years ago." vasectomy,rt hand ganglion cystectomy , numerous cysts removed.colonoscopy Past Anesthesia/Blood Transfusion Reactions: No Reported Reaction Additional Past Anesthesia/Blood Transfusion Reaction / Comment(s): PT HAS NEVER RECEIVED BLOOD. Past Psychological History: Anxiety, Depression Additional Psychological History / Comment(s): PT STATED HE LIVES IN [facility] IN [place], ADMITS TO DRINKING A FIFTH OF whiskey PER DAY. denies any depression or thoughts of harming self. Smoking Status: Current every day smoker Past Alcohol Use History: Abuse Additional Past Alcohol Use History / Comment(s): smokes 1.5 PPD; Past Drug Use History: None Reported Additional Drug Use History / Comment(s): Pt. denies drug ABUSE - Past Family History Father Family Medical History: No Reported History Additional Family Medical History / Comment(s): FATHER IS ALIVE AND HEALTHY. Mother Family Medical History: CVA/TIA Additional Family Medical History / Comment(s): mother of a cva at age 75 years Medications and Allergies Home Medications Medication Instructions Recorded Confirmed Type Clotrimazole [Clotrimazole 1%] 1 applic TOPICAL BID 04/26/16 04/26/16 History LORazepam [Ativan] 1 mg PO TID PRN 04/26/16 04/26/16 History Thiamine [Vitamin B-1] 100 mg PO DAILY 04/26/16 04/26/16 History Allergies Allergy/AdvReac Type Severity Reaction Status Date / Time coconut Allergy Unknown Verified 04/26/16 09:42 milk Allergy Unknown Verified 04/26/16 09:42 peanut [Peanut Butter] Allergy Unknown Verified 04/26/16 09:42 SAW DUST Allergy Unknown Uncoded 04/06/16 11:53 Physical Exam Vitals: Vital Signs Temp Pulse Pulse Resp BP BP Pulse Ox 04/26/16 12:00 100.1 F H 118 H 16 116/65 93 L 04/26/16 08:00 99.1 F 117 H 18 122/65 04/26/16 04:00 98.1 F 115 H 18 150/92 96 04/26/16 02:32 98.1 F 115 H 18 150/92 96 04/26/16 01:30 110 H 18 179/85 94 L Intake and Output 04/26/16 04/26/16 04/26/16 06:59 14:59 22:59 Intake Total 1180 922 Balance 1180 922 Intake: IV 80 442 0.9 @20mls 80 432 Invasive Line 1 10 Amount of Fluid Infused ( 1100 ml) Oral 480 Other: Voiding Method Urinal Weight 62.9 kg General: The patient is awake and alert, he appeared shaky Eye: extra-ocular movements are intact; there is normal conjunctiva bilaterally. . Neck: The neck is supple, there is no tenderness or JVD. Cardiovascular: Normal S1-S2, no S3-S4, no murmurs. Respiratory: Lungs clear to auscultation bilaterally with no wheezes rhonchi or rales. Gastrointestinal: Abdomen is soft, nontender, nondistended, with no organomegaly. . Musculoskeletal: Normal ROM, no tenderness, There is no pedal edema. Neurological: There are no obvious motor or sensory deficits. Speech is normal. Skin: Skin is warm and dry and no rashes or lesions are noted. Results CBC & Chem 7: 04/25/16 22:46 04/25/16 22:46 Labs: Abnormal Lab Results - Last 24 Hours (Table) 04/26/16 04/26/16 04/26/16 Range/Units 02:35 03: 05:45 POC Glucose (mg/dL) 121 H (75-99) mg/dL Plasma Lactic Acid Evan 2.5 H* (0.7-2.0) mmol/L Total Creatine Kinase 176 H (55-170) U/L CK-MB (CK-2) 3.2 H* (0.0-2.4) ng/mL 04/26/16 04/26/16 Range/Units 06:00 11:39 POC Glucose (mg/dL) 121 H 142 H (75-99) mg/dL Plasma Lactic Acid Evan (0.7-2.0) mmol/L Total Creatine Kinase (55-170) U/L CK-MB (CK-2) (0.0-2.4) ng/mL Thrombosis Risk Factor Assmnt - Choose All That Apply Each Factor Represents 1 point: Age 41-60 years Thrombosis Risk Factor Assessment Total Risk Factor Score: 1 Thrombosis Risk Factor Assessment Level: Low Risk Assessment and Plan Plan: 1. Acute alcoholic gastritis with epigastric pain: Continue IV Protonix for now 2. Alcohol withdrawal: Currently on Ativan IV as needed per CIWA protocol 3. Heavy alcohol abuse: Counseled extensively to quit 4. 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 DVT prophylaxis with subcu heparin 6. Dehydration with intravascular depletion and elevated lactate Today, I reviewed his lab work results and medication list. Continue aggressive IV fluid hydration. Counseled extensively about alcohol abuse. Patient has been into inpatient rehab at [place] 3 times that he relapsed. We will continue supportive care otherwise. Repeat lab work in the morning. Repeat lactate stat.
[2016-04-26 16:51] LABS: Glucose,Whole Blood 125 mg/dL (75-99)
[2016-04-26 19:17] LABS: Creatine Kinase 109 U/L (55-170)
[2016-04-26 19:30] LABS: Creatine Kinase MB 1.2 ng/mL (0.0-2.4); Troponin I <0.012 ng/mL (0.000-0.034)
[2016-04-26] MEDS: HEPARIN SODIUM,PORCINE 5,000 UNIT/ML 1 ML VIAL SQ SCH (20:49)
[2016-04-26 21:05] LABS: Glucose,Whole Blood 148 mg/dL (75-99)
[2016-04-27] MEDS: LORazepam 2 MG/ML SYRINGE IV PRN ×3 (03:19→20:15)
[2016-04-27 06:07] LABS: Glucose,Whole Blood 121 mg/dL (75-99)
[2016-04-27] MEDS: INSULIN LISPRO (humaLOG) 300 UNIT/3 ML VIAL SQ SCH ×4 (06:08→20:19)
[2016-04-27] MEDS: IBUPROFEN 400 MG TAB PO PRN ×3 (06:18→20:14)
[2016-04-27] MEDS: PANTOPRAZOLE 40 MG TABLET PO SCH (06:19)
[2016-04-27 06:37] LABS: Basophils # (A) 0.1 k/uL (0-0.2); Basophils % (A) 1 %; CH 35.2; CHCM 33.8; Eosinophils # (A) 0.2 k/uL (0-0.7); Eosinophils % (A) 3 %; HCT 41.3 % (39.0-53.0); Luc # (Auto) 0.11; Luc % (Auto) 2; Lymphocytes # (A) 1.7 k/uL (1.0-4.8); Lymphocytes % (A) 24 %; MCH 35.6 pg (25.0-35.0); MCV 104.7 fL (80.0-100.0); Macrocytosis Slight; Mean Platelet Volume 8.9; Monocytes # (A) 0.2 k/uL (0-1.0); Monocytes % (A) 3 %; Neutrophils # (A) 4.8 k/uL (1.3-7.7); Neutrophils % (A) 68 %; RBC 3.95 m/uL (4.30-5.90); WBC 7.1 k/uL (3.8-10.6)
[2016-04-27 06:51] LABS: ALT 41 U/L (21-72); AST 34 U/L (17-59); Alkaline Phosphatase 76 U/L (38-126); Anion Gap 6 mmol/L; Blood Urea Nitrogen 18 mg/dL (9-20); Carbon Dioxide 28 mmol/L (22-30); Chloride 102 mmol/L (98-107); Glucose 135 mg/dL (74-99); Non-African American GFR(MDRD) >60 (>60 ml/min/1.73 sqM); Potassium 3.8 mmol/L (3.5-5.1); Sodium 136 mmol/L (137-145); Total Bilirubin 1.5 mg/dL (0.2-1.3); Total Protein 5.8 g/dL (6.3-8.2)
[2016-04-27 07:03] LABS: HGB 14.1 gm/dL (13.0-17.5)
[2016-04-27] MEDS: HEPARIN SODIUM,PORCINE 5,000 UNIT/ML 1 ML VIAL SQ SCH ×2 (08:08→20:14)
[2016-04-27] MEDS: NICOTINE 14MG/24HR PATCH TRANSDERM SCH (08:08)
[2016-04-27] MEDS: DEXTROSE 5%-0.45% NACL 1,000 ML IV SCH (08:09)
[2016-04-27 11:59] LABS: Glucose,Whole Blood 88 mg/dL (75-99)
--- NOTE | 2016-04-27 14:58 | P.PN ---
Subjective Patient is complaining of generalized pain all over his body. He still triggering and requiring IV Ativan 1 or 2 doses since last night. Objective - Vital Signs Vital signs: Vital Signs Temp 97.3 F L 04/27/16 08:00 Pulse 87 04/27/16 08:00 Resp 16 04/27/16 08:00 BP 141/70 04/27/16 08:00 Pulse Ox 98 04/27/16 08:00 Intake & Output 04/26/16 04/27/16 04/27/16 18:59 06:59 18:59 Intake Total 922 2380 1018.65 Balance 922 2380 1018.65 Weight 64.8 kg Intake: IV 442 1800 918.65 0.9 @20mls 432 Dextrose 5%-0.45% NaCl 1, 800 918.65 000 ml @ 100 mls/hr IV . Q10H [facility] Rx#:[id number] Invasive Line 1 10 Sodium Chloride 0.9% 1, 1000 000 ml @ 100 mls/hr IV . Q10H7M ONE with Mvi, Adult No.4 with Vit K 10 ml with Thiamine 100 mg with Folic Acid 1 mg Rx#: [id number] Intake, IV Titration 100 Amount Magnesium Sulfate-D5w Pmx 100 1 gm In Dextrose/Water 1 100ml.bag @ 100 mls/hr IVPB Q1H [facility] Rx#: [id number] Oral 480 480 100 Other: Voiding Method Urinal Toilet - Exam General: The patient is awake and alert, in no distress Eye: there is normal conjunctiva bilaterally. Neck: The neck is supple, there is no JVD. Cardiovascular: Normal S1-S2, no S3-S4, no murmurs. Respiratory: Lungs clear to auscultation bilaterally Gastrointestinal: Abdomen is soft, nontender Musculoskeletal: There is no pedal edema. Neurological:. Speech is normal. Skin: Skin is warm and dry - Labs CBC & Chem 7: 04/27/16 05:30 04/27/16 05:30 Labs: Abnormal Lab Results - Last 24 Hours (Table) 04/26/16 04/26/16 04/27/16 Range/Units 16:49 20:55 05:30 RBC 3.95 L (4.30-5.90) m/uL MCV 104.7 H (80.0-100.0) fL MCH 35.6 H (25.0-35.0) pg Plt Count 134 L (150-450) k/uL Sodium (137-145) mmol/L Creatinine (0.66-1.25) mg/dL Glucose (74-99) mg/dL POC Glucose (mg/dL) 125 H 148 H (75-99) mg/dL Calcium (8.4-10.2) mg/dL Total Bilirubin (0.2-1.3) mg/dL Total Protein (6.3-8.2) g/dL Albumin (3.5-5.0) g/dL 04/27/16 04/27/16 Range/Units 05:30 06:06 RBC (4.30-5.90) m/uL MCV (80.0-100.0) fL MCH (25.0-35.0) pg Plt Count (150-450) k/uL Sodium 136 L (137-145) mmol/L Creatinine 0.60 L (0.66-1.25) mg/dL Glucose 135 H (74-99) mg/dL POC Glucose (mg/dL) 121 H (75-99) mg/dL Calcium 8.0 L (8.4-10.2) mg/dL Total Bilirubin 1.5 H (0.2-1.3) mg/dL Total Protein 5.8 L (6.3-8.2) g/dL Albumin 3.3 L (3.5-5.0) g/dL Assessment and Plan Plan: 1. Acute alcoholic gastritis with epigastric pain: Continue IV Protonix for now 2. Alcohol withdrawal: Currently on Ativan IV as needed per CIWA protocol 3. Heavy alcohol abuse: Counseled extensively to quit 4. 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 DVT prophylaxis with subcu heparin 6. Dehydration with intravascular depletion and elevated lactate: resolved with IV fluid hydration 7. Hypomagnesemia replaced by protocol Today, I reviewed his lab work results and medication list. Continue aggressive IV fluid hydration. Counseled extensively about alcohol abuse. Patient has been into inpatient rehab at [place] 3 times that he relapsed. We will continue supportive care otherwise. Repeat lab work in the morning. Anticipate discharge home tomorrow
[2016-04-27 16:38] LABS: Glucose,Whole Blood 163 mg/dL (75-99)
[2016-04-27 20:25] LABS: Glucose,Whole Blood 131 mg/dL (75-99)
[2016-04-28] MEDS: DEXTROSE 5%-0.45% NACL 1,000 ML IV SCH (04:04)
[2016-04-28 06:51] LABS: Glucose,Whole Blood 159 mg/dL (75-99)
[2016-04-28] MEDS: NICOTINE 14MG/24HR PATCH TRANSDERM SCH (08:30)
[2016-04-28] MEDS: PANTOPRAZOLE 40 MG TABLET PO SCH (08:30)
[2016-04-28] MEDS: HEPARIN SODIUM,PORCINE 5,000 UNIT/ML 1 ML VIAL SQ SCH ×2 (08:30→20:20)
[2016-04-28] MEDS: INSULIN LISPRO (humaLOG) 300 UNIT/3 ML VIAL SQ SCH ×4 (08:31→20:54)
[2016-04-28] MEDS: LORazepam 2 MG/ML SYRINGE IV PRN ×3 (08:33→23:46)
[2016-04-28] MEDS: IBUPROFEN 400 MG TAB PO PRN ×2 (08:33→19:54)
[2016-04-28 09:05] LABS: ALT 40 U/L (21-72); AST 39 U/L (17-59); Alkaline Phosphatase 65 U/L (38-126); Anion Gap 10 mmol/L; Blood Urea Nitrogen 11 mg/dL (9-20); Calcium 8.8 mg/dL (8.4-10.2); Carbon Dioxide 23 mmol/L (22-30); Chloride 100 mmol/L (98-107); Glucose 155 mg/dL (74-99); Magnesium 1.3 mg/dL (1.6-2.3); Non-African American GFR(MDRD) >60 (>60 ml/min/1.73 sqM); Potassium 4.1 mmol/L (3.5-5.1); Sodium 133 mmol/L (137-145); Total Bilirubin 1.3 mg/dL (0.2-1.3)
[2016-04-28 11:58] LABS: Glucose,Whole Blood 196 mg/dL (75-99)
--- NOTE | 2016-04-28 15:18 | P.PN ---
Subjective Patient is more comfortable today. No evidence of shakiness or tremor. He required 1 dose of Ativan earlier. Magnesium remained to be low. Objective - Vital Signs Vital signs: Vital Signs Temp 98.6 F 04/28/16 14:57 Pulse 80 04/28/16 14:57 Resp 18 04/28/16 14:57 BP 128/66 04/28/16 14:57 Pulse Ox 98 04/28/16 14:57 Intake & Output 04/27/16 04/28/16 04/28/16 18:59 06:59 18:59 Intake Total 1801.65 200 Balance 1801.65 200 Intake: IV 1201.65 200 Dextrose 5%-0.45% NaCl 1, 1201.65 200 000 ml @ 50 mls/hr IV . Q20H MARILYN Rx#:[id number] Oral 600 Other: Voiding Method Toilet # Voids 3 1 - Exam General: The patient is awake and alert, in no distress Eye: there is normal conjunctiva bilaterally. Neck: The neck is supple, there is no JVD. Cardiovascular: Normal S1-S2, no S3-S4, no murmurs. Respiratory: Lungs clear to auscultation bilaterally Gastrointestinal: Abdomen is soft, nontender Musculoskeletal: There is no pedal edema. Neurological:. Speech is normal. Skin: Skin is warm and dry - Labs CBC & Chem 7: 04/27/16 05:30 04/28/16 08:05 Labs: Abnormal Lab Results - Last 24 Hours (Table) 04/27/16 04/27/16 04/28/16 Range/Units 16:37 20:19 06:50 Sodium (137-145) mmol/L Creatinine (0.66-1.25) mg/dL Glucose (74-99) mg/dL POC Glucose (mg/dL) 163 H 131 H 159 H (75-99) mg/dL Magnesium (1.6-2.3) mg/dL Total Protein (6.3-8.2) g/dL 04/28/16 04/28/16 Range/Units 08:05 11:57 Sodium 133 L (137-145) mmol/L Creatinine 0.47 L (0.66-1.25) mg/dL Glucose 155 H (74-99) mg/dL POC Glucose (mg/dL) 196 H (75-99) mg/dL Magnesium 1.3 L (1.6-2.3) mg/dL Total Protein 6.0 L (6.3-8.2) g/dL Assessment and Plan Plan: 1. Acute alcoholic gastritis with epigastric pain: Continue IV Protonix for now 2. Alcohol withdrawal: Currently on Ativan IV as needed per [facility] protocol 3. Heavy alcohol abuse: Counseled extensively to quit 4. 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 DVT prophylaxis with subcu heparin 6. Dehydration with intravascular depletion and elevated lactate: resolved with IV fluid hydration 7. Hypomagnesemia replaced by protocol Today, I reviewed his lab work results and medication list. Counseled extensively about alcohol abuse during this admission. Patient has been into inpatient rehab at [facility] 3 times that he relapsed. We will continue supportive care otherwise. Repeat lab work in the morning. Anticipate discharge home tomorrow
[2016-04-28] MEDS: MAGNESIUM SULFATE-D5W PMX 1 GM in DEXTROSE/WATER 1 100ML.BAG IVPB SCH ×3 (16:49→20:54)
[2016-04-28 16:52] LABS: Glucose,Whole Blood 132 mg/dL (75-99)
[2016-04-28 20:47] LABS: Glucose,Whole Blood 170 mg/dL (75-99)
[2016-04-29] MEDS: IBUPROFEN 400 MG TAB PO PRN (06:36)
[2016-04-29] MEDS ORDERED: CALCIUM CARB-MAG CARB-FOLIC 1 EACH TAB PO SCH (07:30)
[2016-04-29] MEDS: INSULIN LISPRO (humaLOG) 300 UNIT/3 ML VIAL SQ SCH ×2 (07:45→12:40)
[2016-04-29] MEDS: PANTOPRAZOLE 40 MG TABLET PO SCH (07:47)
[2016-04-29] MEDS: NICOTINE 14MG/24HR PATCH TRANSDERM SCH (07:47)
[2016-04-29] MEDS: HEPARIN SODIUM,PORCINE 5,000 UNIT/ML 1 ML VIAL SQ SCH (07:47)
[2016-04-29 08:00] VITALS: BP 144/76; PULSE 64; RESP 20; TEMP 97.9
[2016-04-29 08:00] LABS: Glucose,Whole Blood 104 mg/dL (75-99)
[2016-04-29 10:04] LABS: Basophils # (A) 0.1 k/uL (0-0.2); Basophils % (A) 1 %; CH 35.8; CHCM 34.3; Eosinophils # (A) 0.3 k/uL (0-0.7); Eosinophils % (A) 5 %; HCT 42.5 % (39.0-53.0); HDW 2.08; HGB 14.3 gm/dL (13.0-17.5); Luc # (Auto) 0.19; Luc % (Auto) 3; Lymphocytes # (A) 1.4 k/uL (1.0-4.8); Lymphocytes % (A) 22 %; MCH 35.3 pg (25.0-35.0); MCHC 33.7 g/dL (31.0-37.0); MCV 104.9 fL (80.0-100.0); Macrocytosis Slight; Mean Platelet Volume 9.1; Monocytes # (A) 0.2 k/uL (0-1.0); Monocytes % (A) 4 %; Neutrophils # (A) 3.9 k/uL (1.3-7.7); Neutrophils % (A) 65 %; RBC 4.05 m/uL (4.30-5.90); RDW 13.5 % (11.5-15.5); WBC 6.1 k/uL (3.8-10.6); WBC (Perox) 6.48
[2016-04-29 10:12] LABS: ALT 53 U/L (21-72); AST 53 U/L (17-59); Alkaline Phosphatase 69 U/L (38-126); Anion Gap 9 mmol/L; Blood Urea Nitrogen 20 mg/dL (9-20); Calcium 8.7 mg/dL (8.4-10.2); Carbon Dioxide 24 mmol/L (22-30); Chloride 100 mmol/L (98-107); Glucose 184 mg/dL (74-99); Magnesium 1.7 mg/dL (1.6-2.3); Non-African American GFR(MDRD) >60 (>60 ml/min/1.73 sqM); Potassium 4.1 mmol/L (3.5-5.1); Sodium 133 mmol/L (137-145); Total Bilirubin 1.2 mg/dL (0.2-1.3); Total Protein 6.3 g/dL (6.3-8.2)
--- NOTE | 2016-04-29 12:23 | P.DS ---
Providers Date of admission: 04/26/16 01:22 Expected date of discharge: 04/29/16 Attending physician: Tory Dunbar Primary care physician: Bertha Garner [facility] Course: This is a 56-year-old gentleman with past medical history noted below significant for heavy alcohol abuse who presented to the hospital with epigastric pain and alcohol intoxication. Patient was admitted to the hospital and was treated with supportive care, IV fluids, IV Protonix, and pain control. He was counseled extensively about stopping alcohol. He was previously at [place] 3 times and is not interested in going back there. He verbalized understanding of the risks. He will be discharged home in a stable condition. Below is the least of his medical problems addressed during this hospitalization. 1. Acute alcoholic gastritis with epigastric pain: Improved. Continue Protonix daily 2. Alcohol withdrawal: Maintained on CIWA protocol during this admission. Not triggering for the past 24-48 hours. 3. Heavy alcohol abuse: Counseled extensively to quit 4. 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 DVT prophylaxis with subcu heparin 6. Dehydration with intravascular depletion and elevated lactate: resolved with IV fluid hydration 7. Hypomagnesemia replaced by protocol Patient Condition at Discharge: Fair Plan - Discharge Summary New Discharge Prescriptions: Nicotine 14Mg/24Hr Patch [Habitrol] 1 patch TRANSDERM DAILY #20 patch Discharge Medication List Omeprazole [PriLOSEC] 40 mg PO AC-BRKFST #14 capsule. 04/08/16 [Rx] LORazepam [Ativan] 1 mg PO TID PRN 04/26/16 [History] Thiamine [Vitamin B-1] 100 mg PO DAILY 04/26/16 [History] Nicotine 14Mg/24Hr Patch [Habitrol] 1 patch TRANSDERM DAILY #20 patch 04/29/16 [ Rx] Follow up Appointment(s)/Referral(s): Bertha Garner MD [Primary Care Provider] - 3 Days Discharge Disposition: HOME SELF-CARE
[2016-04-29 12:36] LABS: Glucose,Whole Blood 180 mg/dL (75-99)
== END 2016-04-29 15:14 | disposition home or self-care (01) | DRG 392 ==
LOC: EC 21:05 → SUPCPDRO 21:05 → 6SEL 04-26 01:22 → 4MS4W 04-27 21:49
PROVIDERS: ADMIT Internal Medicine; ATTEND Internal Medicine
DX: K29.20 Alcoholic gastritis without bleeding (principal); K50.90 Crohn's disease, unspecified, without complications; F10.239 Alcohol dependence with withdrawal, unspecified; F32.9 Major depressive disorder, single episode, unspecified; E11.9 Type 2 diabetes mellitus without complications; E86.0 Dehydration; F17.200 Nicotine dependence, unspecified, uncomplicated; F41.9 Anxiety disorder, unspecified; G40.909 Epilepsy, unspecified, not intractable, without status epilepticus; K21.9 Gastro-esophageal reflux disease without esophagitis; R52 Pain, unspecified; Z85.828 Personal history of other malignant neoplasm of skin; Z98.1 Arthrodesis status; Z79.899 Other long term (current) drug therapy
CPT/HCPCS: 36415; 70450; 71020; 74020; 80053; 82150; 82550; 82553; 83036; 83605; 83690; 83735; 84484; 85025; 85610; 85730; 93005; 96361; 96365; 99285

== ENCOUNTER 2016-06-02 03:15 | Inpatient (IN) | payer MEDICARE, OTHER ==
[2016-06-02] MEDS ORDERED: LORazepam 2 MG/ML SYRINGE IV STA ×2 (03:23→05:16)
--- NOTE | 2016-06-02 03:28 | ED ---
General Adult HPI - General Chief complaint: Seizure Stated complaint: shaky,etoh Time Seen by Provider: 06/02/16 03:15 Source: patient, EMS, RN notes reviewed, old records reviewed Mode of arrival: EMS Limitations: no limitations - History of Present Illness Initial comments: This is a 56-year-old male with a history of alcoholism who is brought in by EMS to [facility] he was given a seizure. He's felt very shaky some nausea no hallucinations in early drinks about one fifth of liquor per day his last drink was about 12 hours ago he states. He states he does not want to stop he ran out of money and could not afford anymore. He does have an Ativan prescription filled recently in the of this month the bottle was empty states he is full at all on his couch and couldn't retrieve it. He denies any thoughts of hurting himself or anyone else. - Related Data Home Medications Medication Instructions Recorded Confirmed LORazepam [Ativan] 1 mg PO TID PRN 04/26/16 06/02/16 Acyclovir [Acyclovir] 800 mg PO TID 06/02/16 06/02/16 Previous Rx's Medication Instructions Recorded Omeprazole [PriLOSEC] 40 mg PO AC-BRKFST #14 capsule. 04/08/16 Allergies Allergy/AdvReac Type Severity Reaction Status Date / Time coconut Allergy Unknown Verified 06/02/16 03:23 milk Allergy Unknown Verified 06/02/16 03:23 peanut [Peanut Butter] Allergy Unknown Verified 06/02/16 03:23 SAW DUST Allergy Unknown Uncoded 06/02/16 03:23 Review of Systems ROS Statement: Those systems with pertinent positive or pertinent negative responses have been documented in the HPI. ROS Other: All systems not noted in ROS Statement are negative. Past Medical History Past Medical History: Cancer, Diabetes Mellitus, GERD/Reflux, GI Bleed, Liver Disease, Seizure Disorder, Skin Disorder Additional Past Medical History / Comment(s): HX TORN ESOPHAGUS/UPPER GI BLEED, TY- KUMAR SYNDROME, MANY SEIZURES from alcohol withdrawal-LONG HX OF ETOH ABUSE MULTIPLE HEAD INJURIES, crohns, pancreatitis, DJD,RT NEPHROSIS, TINNITUS C-DIFF 02-23-15 Left shoulder dislocation BUT PLACED BACK IN-"BALL IS BROKE", Skin CA-2 time removal-"years ago." History of Any Multi-Drug Resistant Organisms: C-DIFF, MRSA Date of last positivie culture/infection: 2014 MDRO Source:: lungs, groin wound Past Surgical History: Hernia Repair, Tonsillectomy Additional Past Surgical History / Comment(s): neck fusion 6 or 7 yrs ago, Skin cancer removal on face-benign "years ago." vasectomy, rt hand ganglion cystectomy, numerous cysts removed.colonoscopy Past Anesthesia/Blood Transfusion Reactions: No Reported Reaction Additional Past Anesthesia/Blood Transfusion Reaction / Comment(s): PT HAS NEVER RECEIVED BLOOD. Past Psychological History: Anxiety, Depression Additional Psychological History / Comment(s): PT STATED HE LIVES IN [facility] IN [place], ADMITS TO DRINKING A FIFTH OF whiskey PER DAY. denies any depression or thoughts of harming self. Smoking Status: Current every day smoker Past Alcohol Use History: Abuse, Daily Additional Past Alcohol Use History / Comment(s): smokes 1.5 PPD; Past Drug Use History: None Reported Additional Drug Use History / Comment(s): Pt. denies drug ABUSE - Past Family History Father Family Medical History: No Reported History Additional Family Medical History / Comment(s): FATHER IS ALIVE AND HEALTHY. Mother Family Medical History: CVA/TIA Additional Family Medical History / Comment(s): mother of a cva at age 75 years General Exam - General Exam Comments Initial Comments: This is a well-developed well-nourished awake alert oriented history male he does demonstrate the smell of alcohol conjoiners on his breath Limitations: no limitations General appearance: alert, anxious Head exam: Present: atraumatic, normocephalic, normal inspection Eye exam: Present: normal appearance, PERRL, EOMI. Absent: scleral icterus, conjunctival injection, periorbital swelling ENT exam: Present: mucous membranes dry Neck exam: Present: normal inspection. Absent: tenderness, meningismus, lymphadenopathy Respiratory exam: Present: normal lung sounds bilaterally. Absent: respiratory distress, wheezes, rales, rhonchi, stridor Cardiovascular Exam: Present: normal rhythm, tachycardia, normal heart sounds. Absent: systolic murmur, diastolic murmur, rubs, gallop, clicks GI/Abdominal exam: Present: soft, normal bowel sounds. Absent: distended, tenderness, guarding, rebound, rigid Extremities exam: Present: full ROM, normal capillary refill, other (The patient is demonstrating tremors of his extremities.). Absent: tenderness, pedal edema, joint swelling, calf tenderness Back exam: Present: normal inspection Neurological exam: Present: alert, oriented X3, CN II-XII intact Psychiatric exam: Present: normal affect, anxious Skin exam: Present: warm, dry, intact, normal color. Absent: rash Course Vital Signs 06/02/16 06/02/16 06/02/16 03:15 03:30 03:38 Temperature 99 F Pulse Rate 115 H 111 H 113 H Respiratory 20 18 18 Rate Blood Pressure 207/96 171/93 163/90 O2 Sat by Pulse 97 95 94 L Oximetry 06/02/16 06/02/16 04:14 04:43 Temperature Pulse Rate 104 H 97 Respiratory 18 18 Rate Blood Pressure 161/81 158/85 O2 Sat by Pulse 96 95 Oximetry EKG Findings - EKG Results: EKG: interpreted by ERMD, sinus rhythm EKG shows: tachycardia (Sinus tachycardia with a rate of 111. Interval 160 QRS duration 68 QT/QTc is 332/451 left exodeviation inferior infarct in anterior infarct patterns of undetermined age.) Medical Decision Making - Medical Decision Making Patient still feeling nauseated and shaky. Patient will be admitted for treatment of impending DTs persistent vomiting and hypomagnesemia. - Lab Data Result diagrams: 06/02/16 03:25 06/02/16 03:25 Lab Results 06/02/16 06/02/16 06/02/16 Range/Units 03:25 03:25 03:25 WBC 6.6 (3.8-10.6) k/uL RBC 4.41 (4.30-5.90) m/uL Hgb 15.5 (13.0-17.5) gm/dL Hct 45.3 (39.0-53.0) % MCV 102.8 H (80.0-100.0) fL MCH 35.0 (25.0-35.0) pg MCHC 34.1 (31.0-37.0) g/dL RDW 13.7 (11.5-15.5) % Plt Count 244 (150-450) k/uL Neutrophils % 57 % Lymphocytes % 33 % Monocytes % 4 % Eosinophils % 2 % Basophils % 1 % Neutrophils # 3.7 (1.3-7.7) k/uL Lymphocytes # 2.2 (1.0-4.8) k/uL Monocytes # 0.3 (0-1.0) k/uL Eosinophils # 0.1 (0-0.7) k/uL Basophils # 0.1 (0-0.2) k/uL Macrocytosis Slight Sodium 136 L (137-145) mmol/L Potassium 3.7 (3.5-5.1) mmol/L Chloride 95 L (98-107) mmol/L Carbon Dioxide 23 (22-30) mmol/L Anion Gap 18 mmol/L BUN 8 L (9-20) mg/dL Creatinine 0.62 L (0.66-1.25) mg/dL Est GFR (MDRD) Af Amer >60 (>60 ml/min/1.73 sqM) Est GFR (MDRD) Non-Af >60 (>60 ml/min/1.73 sqM) Glucose 158 H (74-99) mg/dL Calcium 9.1 (8.4-10.2) mg/dL Magnesium 1.1 L (1.6-2.3) mg/dL Total Bilirubin 1.0 (0.2-1.3) mg/dL AST 38 (17-59) U/L ALT 34 (21-72) U/L Alkaline Phosphatase 88 (38-126) U/L Total Creatine Kinase 143 (55-170) U/L CK-MB (CK-2) 1.6 (0.0-2.4) ng/mL CK-MB (CK-2) Rel Index 1.1 Total Protein 7.4 (6.3-8.2) g/dL Albumin 4.5 (3.5-5.0) g/dL Amylase 48 (30-110) U/L Lipase 21 L (23-300) U/L Serum Alcohol 68 mg/dL - Radiology Data Radiology results: report reviewed (I did review the x-rays and report no acute findings), image reviewed Disposition Clinical Impression: Alcohol withdrawal, Chronic alcoholism, Tremors of nervous system Disposition: ADMITTED IP TO THIS [facility] Condition: Stable
[2016-06-02 03:34] LABS: Basophils # (A) 0.1 k/uL (0-0.2); Basophils % (A) 1 %; CH 36.7; CHCM 35.9; Eosinophils # (A) 0.1 k/uL (0-0.7); Eosinophils % (A) 2 %; HCT 45.3 % (39.0-53.0); HGB 15.5 gm/dL (13.0-17.5); Luc # (Auto) 0.18; Luc % (Auto) 3; Lymphocytes # (A) 2.2 k/uL (1.0-4.8); Lymphocytes % (A) 33 %; MCHC 34.1 g/dL (31.0-37.0); MCV 102.8 fL (80.0-100.0); Macrocytosis Slight; Mean Platelet Volume 6.9; Monocytes # (A) 0.3 k/uL (0-1.0); Monocytes % (A) 4 %; Neutrophils # (A) 3.7 k/uL (1.3-7.7); Neutrophils % (A) 57 %; RBC 4.41 m/uL (4.30-5.90); RDW 13.7 % (11.5-15.5); WBC 6.6 k/uL (3.8-10.6); WBC (Perox) 6.43
[2016-06-02 03:41] LABS: Alcohol 68 mg/dL; Amylase 48 U/L (30-110); Anion Gap 18 mmol/L; Calcium 9.1 mg/dL (8.4-10.2); Carbon Dioxide 23 mmol/L (22-30); Chloride 95 mmol/L (98-107); Glucose 158 mg/dL (74-99); Non-African American GFR(MDRD) >60 (>60 ml/min/1.73 sqM); Sodium 136 mmol/L (137-145); Total Protein 7.4 g/dL (6.3-8.2)
[2016-06-02 03:46] LABS: ALT 34 U/L (21-72); AST 38 U/L (17-59); Alkaline Phosphatase 88 U/L (38-126); Blood Urea Nitrogen 8 mg/dL (9-20); Magnesium 1.1 mg/dL (1.6-2.3); Potassium 3.7 mmol/L (3.5-5.1)
--- NOTE | 2016-06-02 04:08 | XR ---
EXAM: XR Chest, 2 Views. CLINICAL HISTORY: Cough TECHNIQUE: Frontal and lateral views of the chest. COMPARISON: 04/25/2016 FINDINGS: Lungs: Unremarkable. No consolidation. Pleural space: Unremarkable. No pneumothorax. Heart: Unremarkable. No cardiomegaly. Mediastinum: Unremarkable. Bones/joints: No acute osseous abnormality. IMPRESSION: No acute cardiopulmonary process.
[2016-06-02 04:11] LABS: Creatine Kinase MB 1.6 ng/mL (0.0-2.4)
[2016-06-02] MEDS: MAGNESIUM SULFATE-D5W PMX 1 GM in DEXTROSE/WATER 1 100ML.BAG IVPB SCH ×2 (04:41→05:43)
[2016-06-02] MEDS ORDERED: ONDANSETRON 4 MG/2 ML VIAL IVP PRN (05:11)
[2016-06-02] MEDS ORDERED: NALOXONE 0.4 MG/ML 1 ML VIAL IV PRN (05:11)
[2016-06-02] MEDS ORDERED: THIAMINE 100 MG/ML 2 ML VIAL IM STA (05:15)
[2016-06-02] MEDS ORDERED: LORazepam 2 MG/ML SYRINGE IV PRN ×2 (05:15)
[2016-06-02 06:37] LABS: Glucose,Whole Blood 106 mg/dL (75-99)
[2016-06-02] MEDS: PANTOPRAZOLE 40 MG/10 ML VIAL IV SCH ×2 (08:48→22:38)
[2016-06-02] MEDS: 0.9% NACL WITH KCL 20 MEQ/L 1,000 ML IV SCH (08:48)
[2016-06-02 12:14] LABS: Glucose,Whole Blood 136 mg/dL (75-99)
--- NOTE | 2016-06-02 12:29 | P.HPIM ---
History of Present Illness H&P Date: 06/02/16 Chief Complaint: Alcohol withdrawal This is a 56-year-old gentleman with past medical history noted below significant for heavy alcohol use who presented to the emergency room with worsening agitation and shakiness. Patient said that he did not have any money to buy alcohol and was started feeling sick. He was evaluated in the emergency room and was started on aggressive IV fluid hydration and IV Ativan as needed. He was admitted to the hospital for further evaluation. He was noted to have urinary retention this morning with postvoid residual showing approximately 500 mL of urine. He denies any other concerns otherwise. Review of Systems Review of system: 14 points review of systems were obtained and were negative except to what were mentioned in the HPI. Past Medical History Past Medical History: Cancer, Diabetes Mellitus, GERD/Reflux, GI Bleed, Liver Disease, Seizure Disorder, Skin Disorder Additional Past Medical History / Comment(s): HX TORN ESOPHAGUS/UPPER GI BLEED, TY- KUMAR SYNDROME, MANY SEIZURES from alcohol withdrawal-LONG HX OF ETOH ABUSE MULTIPLE HEAD INJURIES, crohns, pancreatitis, DJD,RT NEPHROSIS, TINNITUS C-DIFF 02-23-14 Left shoulder dislocation BUT PLACED BACK IN-"BALL IS BROKE", Skin CA-2 time removal-"years ago." History of Any Multi-Drug Resistant Organisms: C-DIFF, MRSA Date of last positivie culture/infection: 2014 MDRO Source:: lungs, groin wound Past Surgical History: Hernia Repair, Tonsillectomy Additional Past Surgical History / Comment(s): neck fusion 6 or 7 yrs ago, Skin cancer removal on face-benign "years ago." vasectomy, rt hand ganglion cystectomy, numerous cysts removed.colonoscopy Past Anesthesia/Blood Transfusion Reactions: No Reported Reaction Additional Past Anesthesia/Blood Transfusion Reaction / Comment(s): PT HAS NEVER RECEIVED BLOOD. Past Psychological History: Anxiety, Depression Additional Psychological History / Comment(s): PT STATED HE LIVES IN [facility] IN [place], ADMITS TO DRINKING A FIFTH OF whiskey PER DAY. denies any depression or thoughts of harming self. Smoking Status: Current every day smoker Past Alcohol Use History: Abuse, Daily Additional Past Alcohol Use History / Comment(s): smokes 1.5 PPD; Past Drug Use History: None Reported Additional Drug Use History / Comment(s): Pt. denies drug ABUSE - Past Family History Father Family Medical History: No Reported History Additional Family Medical History / Comment(s): FATHER IS ALIVE AND HEALTHY. Mother Family Medical History: CVA/TIA Additional Family Medical History / Comment(s): mother of a cva at age 75 years Medications and Allergies Home Medications Medication Instructions Recorded Confirmed Type LORazepam [Ativan] 1 mg PO TID PRN 04/26/16 06/02/16 History INSULIN LISPRO (HumaLOG) [HumaLOG] See Protocol SQ AC-TID 06/02/16 06/02/16 History Loperamide [Imodium] 2 mg PO QID PRN 06/02/16 06/02/16 History Allergies Allergy/AdvReac Type Severity Reaction Status Date / Time coconut AdvReac cysts Verified 06/02/16 07:45 milk AdvReac Nausea Verified 06/02/16 07:45 peanut [Peanut Butter] AdvReac cyst Verified 06/02/16 07:45 SAW DUST Allergy rhinorrhea Uncoded 06/02/16 06:42 Physical Exam Vitals: Vital Signs Temp Pulse Pulse Resp BP BP Pulse Ox 06/02/16 07:00 99.4 F 105 H 20 152/94 93 L 06/02/16 06:14 98.6 F 108 H 16 147/91 95 06/02/16 05:41 99.0 F 102 H 18 166/90 96 06/02/16 05:20 110 H 18 160/92 96 General: The patient is awake and alert, in no distress, and does not appear acutely ill. Eye: extra-ocular movements are intact; there is normal conjunctiva bilaterally. . Neck: The neck is supple, there is no tenderness or JVD. Cardiovascular: Normal S1-S2, no S3-S4, no murmurs. Respiratory: Lungs clear to auscultation bilaterally with no wheezes rhonchi or rales. Gastrointestinal: Abdomen is soft, nontender, nondistended, with no organomegaly. . Musculoskeletal: Normal ROM, no tenderness, There is no pedal edema. Neurological: There are no obvious motor or sensory deficits. Speech is normal. Skin: Skin is warm and dry and no rashes or lesions are noted. Results CBC & Chem 7: 06/02/16 03:25 06/02/16 03:25 Labs: Abnormal Lab Results - Last 24 Hours (Table) 06/02/16 06/02/16 Range/Units 06:36 12:13 POC Glucose (mg/dL) 106 H 136 H (75-99) mg/dL Thrombosis Risk Factor Assmnt - Choose All That Apply Any of the Below Risk Factors Present?: Yes Each Factor Represents 1 point: Abnormal pulmonary function (COPD) Other Risk Factors: No Other congenital or acquired thrombophilia - If yes, enter type in comment: No Thrombosis Risk Factor Assessment Total Risk Factor Score: 1 Thrombosis Risk Factor Assessment Level: Low Risk Assessment and Plan Plan: 1. Acute alcoholic gastritis: Continue IV Protonix for now 2. Alcohol withdrawal: Currently on Ativan IV as needed per [facility] protocol 3. Heavy alcohol abuse: Counseled extensively to quit 4. 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 DVT prophylaxis with subcu heparin 6. Dehydration with intravascular depletion 7. Urinary retention: Plan to straight cath once today. Continue PVR every 8 hours 8. Hypomagnesemia Today, I reviewed his lab work results and medication list. Continue aggressive IV fluid hydration and electrolyte replacement. Counseled extensively about alcohol abuse. Patient has been into inpatient rehab at [place] 3 times that he relapsed. We will continue supportive care otherwise. Repeat lab work in the morning.
[2016-06-02 16:54] LABS: Glucose,Whole Blood 143 mg/dL (75-99)
[2016-06-02] MEDS: ACETAMINOPHEN TAB 500 MG TAB PO PRN (17:47)
[2016-06-02] MEDS: THIAMINE 100 MG TAB PO SCH (17:48)
[2016-06-02 21:44] LABS: Glucose,Whole Blood 141 mg/dL (75-99)
[2016-06-03] MEDS ORDERED: NICOTINE 21MG/24HR PATCH TRANSDERM STA (00:34)
[2016-06-03] MEDS: ACETAMINOPHEN TAB 500 MG TAB PO PRN ×4 (01:06→20:33)
[2016-06-03 02:26] LABS: Glucose,Whole Blood 100 mg/dL (75-99)
[2016-06-03] MEDS: 0.9% NACL WITH KCL 20 MEQ/L 1,000 ML IV SCH ×2 (02:59→20:28)
[2016-06-03 06:39] LABS: Glucose,Whole Blood 114 mg/dL (75-99)
[2016-06-03] MEDS: NICOTINE 21MG/24HR PATCH TRANSDERM SCH (08:06)
[2016-06-03] MEDS: PANTOPRAZOLE 40 MG/10 ML VIAL IV SCH ×2 (08:06→20:27)
[2016-06-03 09:21] LABS: Basophils % (A) 0 %; CH 35.4; CHCM 33.5; Eosinophils # (A) 0.4 k/uL (0-0.7); Eosinophils % (A) 6 %; HDW 2.11; Luc # (Auto) 0.13; Luc % (Auto) 2; Lymphocytes # (A) 1.7 k/uL (1.0-4.8); Lymphocytes % (A) 27 %; MCH 34.7 pg (25.0-35.0); MCHC 32.7 g/dL (31.0-37.0); MCV 106.2 fL (80.0-100.0); Macrocytosis Moderate; Mean Platelet Volume 7.7; Monocytes # (A) 0.2 k/uL (0-1.0); Monocytes % (A) 4 %; Neutrophils # (A) 3.8 k/uL (1.3-7.7); Neutrophils % (A) 61 %; RBC 4.33 m/uL (4.30-5.90); RDW 13.6 % (11.5-15.5); WBC 6.2 k/uL (3.8-10.6); WBC (Perox) 6.32
[2016-06-03 09:29] LABS: Anion Gap 9 mmol/L; Blood Urea Nitrogen 4 mg/dL (9-20); Calcium 8.6 mg/dL (8.4-10.2); Carbon Dioxide 20 mmol/L (22-30); Chloride 105 mmol/L (98-107); Glucose 115 mg/dL (74-99); Magnesium 1.6 mg/dL (1.6-2.3); Non-African American GFR(MDRD) >60 (>60 ml/min/1.73 sqM); Sodium 134 mmol/L (137-145)
[2016-06-03 12:02] LABS: Glucose,Whole Blood 111 mg/dL (75-99)
[2016-06-03] MEDS: THIAMINE 100 MG TAB PO SCH ×2 (12:24→16:26)
--- NOTE | 2016-06-03 12:37 | P.PN ---
Subjective Patient still complaining of some abdominal discomfort. He is concerned that he is still getting liquid diet and would like to advance his diet to regular before being discharged home. Objective - Vital Signs Vital signs: Vital Signs Temp 98.8 F 06/03/16 07:00 Pulse 69 06/03/16 07:00 Resp 18 06/03/16 08:00 BP 141/84 06/03/16 07:00 Pulse Ox 96 06/03/16 07:00 Intake & Output 06/02/16 06/03/16 06/03/16 18:59 06:59 18:59 Intake Total 240 Output Total 950 Balance -950 240 Intake: Oral 240 Output: Urine 950 Straight 750 Other: # Voids 1 # Bowel Movements 1 - Exam General: The patient is awake and alert, in no distress Eye: there is normal conjunctiva bilaterally. Neck: The neck is supple, there is no JVD. Cardiovascular: Normal S1-S2, no S3-S4, no murmurs. Respiratory: Lungs clear to auscultation bilaterally Gastrointestinal: Abdomen is soft, nontender Musculoskeletal: There is no pedal edema. Neurological:. Speech is normal. Skin: Skin is warm and dry - Labs CBC & Chem 7: 06/03/16 08:15 06/03/16 08:15 Labs: Abnormal Lab Results - Last 24 Hours (Table) 06/02/16 06/02/16 06/03/16 Range/Units 16:53 21:42 02:24 MCV (80.0-100.0) fL Sodium (137-145) mmol/L Carbon Dioxide (22-30) mmol/L BUN (9-20) mg/dL Creatinine (0.66-1.25) mg/dL Glucose (74-99) mg/dL POC Glucose (mg/dL) 143 H 141 H 100 H (75-99) mg/dL 06/03/16 06/03/16 06/03/16 Range/Units 06:38 08:15 08:15 MCV 106.2 H (80.0-100.0) fL Sodium 134 L (137-145) mmol/L Carbon Dioxide 20 L (22-30) mmol/L BUN 4 L (9-20) mg/dL Creatinine 0.57 L (0.66-1.25) mg/dL Glucose 115 H (74-99) mg/dL POC Glucose (mg/dL) 114 H (75-99) mg/dL 06/03/16 Range/Units 12:01 MCV (80.0-100.0) fL Sodium (137-145) mmol/L Carbon Dioxide (22-30) mmol/L BUN (9-20) mg/dL Creatinine (0.66-1.25) mg/dL Glucose (74-99) mg/dL POC Glucose (mg/dL) 111 H (75-99) mg/dL Assessment and Plan Plan: 1. Acute alcoholic gastritis: Continue IV Protonix for now 2. Alcohol withdrawal: Currently on Ativan IV as needed per [facility] protocol 3. Heavy alcohol abuse: Counseled extensively to quit 4. 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 DVT prophylaxis with subcu heparin 6. Dehydration with intravascular depletion 7. Urinary retention: Plan to straight cath once today. Continue PVR every 8 hours 8. Hypomagnesemia Today, I reviewed his lab work results and medication list. Continue gentle IV fluid hydration and electrolyte replacement. Counseled extensively about alcohol abuse. Patient has been into inpatient rehab at [place] 3 times that he relapsed. We will continue supportive care otherwise. Repeat lab work in the morning. Advance diet to regular today and assured the patient is tolerating okay. Plan to discharge home tomorrow.
[2016-06-03 17:09] LABS: Glucose,Whole Blood 103 mg/dL (75-99)
[2016-06-03 21:28] LABS: Glucose,Whole Blood 104 mg/dL (75-99)
[2016-06-04 02:29] LABS: Glucose,Whole Blood 115 mg/dL (75-99)
[2016-06-04] MEDS: ACETAMINOPHEN TAB 500 MG TAB PO PRN ×2 (02:46→09:23)
[2016-06-04 07:33] LABS: Glucose,Whole Blood 105 mg/dL (75-99)
[2016-06-04] MEDS: NICOTINE 21MG/24HR PATCH TRANSDERM SCH (07:39)
[2016-06-04] MEDS: PANTOPRAZOLE 40 MG/10 ML VIAL IV SCH ×2 (07:39→20:37)
[2016-06-04 09:13] LABS: Basophils % (A) 0 %; CH 35.4; CHCM 34.7; Eosinophils # (A) 0.3 k/uL (0-0.7); Eosinophils % (A) 5 %; HDW 2.27; HGB 15.4 gm/dL (13.0-17.5); Luc # (Auto) 0.17; Luc % (Auto) 3; Lymphocytes # (A) 1.8 k/uL (1.0-4.8); Lymphocytes % (A) 28 %; MCH 35.1 pg (25.0-35.0); MCHC 34.2 g/dL (31.0-37.0); MCV 102.6 fL (80.0-100.0); Macrocytosis Slight; Mean Platelet Volume 7.7; Monocytes # (A) 0.3 k/uL (0-1.0); Monocytes % (A) 5 %; Neutrophils # (A) 3.9 k/uL (1.3-7.7); Neutrophils % (A) 60 %; RBC 4.38 m/uL (4.30-5.90); RDW 13.2 % (11.5-15.5); WBC 6.5 k/uL (3.8-10.6); WBC (Perox) 6.45
[2016-06-04 09:24] LABS: Anion Gap 9 mmol/L; Blood Urea Nitrogen 6 mg/dL (9-20); Calcium 8.7 mg/dL (8.4-10.2); Carbon Dioxide 20 mmol/L (22-30); Chloride 103 mmol/L (98-107); Glucose 156 mg/dL (74-99); Magnesium 1.4 mg/dL (1.6-2.3); Non-African American GFR(MDRD) >60 (>60 ml/min/1.73 sqM); Sodium 132 mmol/L (137-145)
[2016-06-04 11:52] LABS: Glucose,Whole Blood 98 mg/dL (75-99)
[2016-06-04] MEDS: THIAMINE 100 MG TAB PO SCH ×2 (12:29→17:59)
--- NOTE | 2016-06-04 13:55 | P.PN ---
Subjective This is a 56-year-old gentleman with past medical history noted below significant for heavy alcohol use who presented to the emergency room with worsening agitation and shakiness. Patient said that he did not have any money to buy alcohol and was started feeling sick. He was evaluated in the emergency room and was started on aggressive IV fluid hydration and IV Ativan as needed. patient feels he may have had a seizure last night. Nurses report patient shaking his arms bilaterally. He was awake and alert during. He was given a dose of Ativan. Neurology will be consulted. he's also still complaining of abdominal discomfort. Reports having about 15's watery stools a day. Stool for C. diff has been ordered. He does report taking Lomotil at home usually for his diarrhea. Patient denies any nausea vomiting. Denies any chest pain or shortness of breath. Patient is urinating adequately finding difficulty. He is asking for more pain medications Tylenol does not take care of his pain Objective - Vital Signs Vital signs: Vital Signs Temp 97.8 F 06/04/16 07:00 Pulse 71 06/04/16 07:00 Resp 18 06/04/16 07:00 BP 153/89 06/04/16 07:00 Pulse Ox 97 06/04/16 07:00 Intake & Output 06/03/16 06/04/16 06/04/16 18:59 06:59 18:59 Intake Total 300 240 Balance 300 240 Intake: Oral 300 240 Other: # Voids 4 1 - Exam Head normocephalic Neck supple Lungs clear to auscultation bilaterally no wheezing or crackles Heart regular rate and rhythm S1-S2, no rub or gallop Abdomen is she's tenderness positive bowel sounds nondistended Extremities no edema Neuro alert and orientated to 3 - Labs CBC & Chem 7: 06/04/16 08:38 06/04/16 08:38 Labs: Abnormal Lab Results - Last 24 Hours (Table) 06/03/16 06/03/16 06/04/16 Range/Units 17:08 21:25 02:04 MCV (80.0-100.0) fL MCH (25.0-35.0) pg Sodium (137-145) mmol/L Carbon Dioxide (22-30) mmol/L BUN (9-20) mg/dL Creatinine (0.66-1.25) mg/dL Glucose (74-99) mg/dL POC Glucose (mg/dL) 103 H 104 H 115 H (75-99) mg/dL Magnesium (1.6-2.3) mg/dL 06/04/16 06/04/16 06/04/16 Range/Units 07:31 08:38 08:38 MCV 102.6 H (80.0-100.0) fL MCH 35.1 H (25.0-35.0) pg Sodium 132 L (137-145) mmol/L Carbon Dioxide 20 L (22-30) mmol/L BUN 6 L (9-20) mg/dL Creatinine 0.56 L (0.66-1.25) mg/dL Glucose 156 H (74-99) mg/dL POC Glucose (mg/dL) 105 H (75-99) mg/dL Magnesium 1.4 L (1.6-2.3) mg/dL Assessment and Plan Plan: 1. Acute alcoholic gastritis: Continue IV Protonix for now 2. Alcohol withdrawal: Currently on Ativan IV as needed per [facility] protocol 3. Heavy alcohol abuse: Counseled extensively to quit 4. 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 DVT prophylaxis with subcu heparin 6. Dehydration with intravascular depletion 7. Urinary retention: Plan to straight cath once today. atient urinating adequately no difficulty 8. Hypomagnesemia: Magnesium level 1.4. We'll give supplement. Repeat magnesium in a.m. 9. Diarrhea check stool for C. diff 10. Possible seizure activity. Patient given Ativan. Neurology will be consulted. 11. Pain management and [place] for pain control
[2016-06-04] MEDS: MAGNESIUM SULFATE-D5W PMX 1 GM in DEXTROSE/WATER 1 100ML.BAG IVPB SCH ×2 (14:13→15:27)
[2016-06-04] MEDS: HYDROcodone/APAP 7.5-325MG 1 EACH TAB PO PRN ×2 (15:27→20:38)
[2016-06-04 17:27] LABS: Glucose,Whole Blood 158 mg/dL (75-99)
[2016-06-04] MEDS: 0.9% NACL WITH KCL 20 MEQ/L 1,000 ML IV SCH (17:59)
[2016-06-04] MEDS: LORazepam 2 MG/ML SYRINGE IV PRN (18:04)
[2016-06-04 20:37] LABS: Glucose,Whole Blood 95 mg/dL (75-99)
[2016-06-04] MEDS: HEPARIN SODIUM,PORCINE 5,000 UNIT/ML 1 ML VIAL SQ SCH (20:38)
[2016-06-05] MEDS: LORazepam 2 MG/ML SYRINGE IV PRN ×2 (01:50→15:48)
[2016-06-05 02:06] LABS: Glucose,Whole Blood 105 mg/dL (75-99)
[2016-06-05] MEDS: HYDROcodone/APAP 7.5-325MG 1 EACH TAB PO PRN ×3 (02:33→17:28)
[2016-06-05 07:36] LABS: Glucose,Whole Blood 99 mg/dL (75-99)
[2016-06-05 08:49] LABS: Basophils % (A) 0 %; CH 35.5; CHCM 33.6; Eosinophils # (A) 0.3 k/uL (0-0.7); Eosinophils % (A) 5 %; HCT 47.6 % (39.0-53.0); HDW 2.16; HGB 15.7 gm/dL (13.0-17.5); Luc # (Auto) 0.16; Luc % (Auto) 2; Lymphocytes # (A) 2.2 k/uL (1.0-4.8); Lymphocytes % (A) 29 %; MCH 34.9 pg (25.0-35.0); MCHC 32.9 g/dL (31.0-37.0); MCV 106.1 fL (80.0-100.0); Macrocytosis Moderate; Mean Platelet Volume 7.6; Monocytes # (A) 0.4 k/uL (0-1.0); Monocytes % (A) 5 %; Neutrophils # (A) 4.4 k/uL (1.3-7.7); Neutrophils % (A) 59 %; RBC 4.49 m/uL (4.30-5.90); RDW 13.5 % (11.5-15.5); WBC 7.5 k/uL (3.8-10.6); WBC (Perox) 7.39
[2016-06-05 09:02] LABS: Anion Gap 9 mmol/L; Blood Urea Nitrogen 7 mg/dL (9-20); Carbon Dioxide 23 mmol/L (22-30); Chloride 102 mmol/L (98-107); Glucose 168 mg/dL (74-99); Magnesium 1.7 mg/dL (1.6-2.3); Non-African American GFR(MDRD) >60 (>60 ml/min/1.73 sqM); Potassium 4.3 mmol/L (3.5-5.1); Sodium 134 mmol/L (137-145)
[2016-06-05] MEDS ORDERED: RX INFO: IV CONTRAST WAS GIVEN 1 EACH MISC MISCELLANE PRN (09:12)
[2016-06-05] MEDS: PANTOPRAZOLE 40 MG TABLET PO SCH ×2 (09:14→21:09)
[2016-06-05] MEDS: NICOTINE 21MG/24HR PATCH TRANSDERM SCH (09:14)
[2016-06-05] MEDS: HEPARIN SODIUM,PORCINE 5,000 UNIT/ML 1 ML VIAL SQ SCH ×2 (09:14→21:09)
[2016-06-05] MEDS: LORazepam 1 MG TAB PO PRN ×2 (09:38→22:59)
--- NOTE | 2016-06-05 10:39 | CT ---
EXAMINATION TYPE: CT brain wo/w con DATE OF EXAM: 06/05/2016 10:34 AM COMPARISON: 04/25/2016 HISTORY: Seizures CT DLP: 1922.0 mGycm, Automated exposure control for dose reduction was used. CONTRAST: Patient injected with 100 mL of Omnipaque 300. CT of the brain is performed utilizing 3 mm thick sections through the posterior fossa and 3 mm thick sections through the remaining calvarium. Study is performed within 24 hours of arrival to the hospital. No abnormal hyperdensity is present to suggest an acute intracranial hemorrhage. No mass lesion is evident. No acute infarcts are evident. Ventricles and sulci are somewhat prominent for the patient age. No abnormal enhancement is evident. Paranasal sinuses and mastoid air cells within the [id number] are clear. IMPRESSIONS: 1. Atrophy CT cervical spine. COMPARISON: None CT of the cervical spine is performed in the axial plane at 2 mm thick sections. Reconstructed image s in the coronal, and sagittal plane are reviewed on the computer. No acute fractures are evident. Vertebral body alignment is normal. Disc heights are preserved. Vertebral body heights are preserved. No spinal canal stenosis is evident. No neural foraminal stenosis is evident. IMPRESSIONS: 1. Normal CT cervical spine.
[2016-06-05 12:01] LABS: Glucose,Whole Blood 101 mg/dL (75-99)
[2016-06-05] MEDS: THIAMINE 100 MG TAB PO SCH ×2 (12:11→17:06)
[2016-06-05] MEDS: MULTIVITAMINS, THERA 1 EACH TAB PO SCH (12:11)
--- NOTE | 2016-06-05 12:23 | P.PN ---
Subjective Principal diagnosis: Alcohol withdrawal with DT patient was admitted to [facility] due to alcohol withdrawal with early DTs and tremors He has been complaining of diarrhea Stools for C. diff was negative Patient stated that he had some seizure activity which was not witnessed Neurology consultation has been requested Computed tomography scan of the brain revealed evidence of atrophy without any other abnormalities computed tomography scan of the cervical spine was normal Objective - Vital Signs Vital signs: Vital Signs Temp 97.0 F L 06/05/16 07:00 Pulse 67 06/05/16 07:00 Resp 20 06/05/16 07:00 BP 155/97 06/05/16 07:00 Pulse Ox 99 06/05/16 07:00 Intake & Output 06/04/16 06/05/16 06/05/16 18:59 06:59 18:59 Intake Total 240 1000 240 Balance 240 1000 240 Intake: Oral 240 1000 240 Other: # Voids 2 3 1 # Bowel Movements 1 - Exam in general patient is alert and oriented 3 in no apparent distress HEENT without any acute abnormality Neck is supple no JVD no goiter no lymphadenopathy no carotid bruit Chest exam reveals a few scattered rhonchi no wheezing Cardiac exam reveals regular heart sounds no gallops no murmurs Abdomen is soft nontender no organomegaly Extremity exam reveals no edema no cyanosis or clubbing - Labs CBC & Chem 7: 06/05/16 08:18 06/05/16 08:18 Labs: Abnormal Lab Results - Last 24 Hours (Table) 06/04/16 06/05/16 06/05/16 Range/Units 17:23 01:42 08:18 MCV 106.1 H (80.0-100.0) fL Sodium (137-145) mmol/L BUN (9-20) mg/dL Creatinine (0.66-1.25) mg/dL Glucose (74-99) mg/dL POC Glucose (mg/dL) 158 H 105 H (75-99) mg/dL 06/05/16 06/05/16 Range/Units 08:18 11:59 MCV (80.0-100.0) fL Sodium 134 L (137-145) mmol/L BUN 7 L (9-20) mg/dL Creatinine 0.62 L (0.66-1.25) mg/dL Glucose 168 H (74-99) mg/dL POC Glucose (mg/dL) 101 H (75-99) mg/dL Assessment and Plan Plan: #1 alcohol withdrawal with delirium tremens, improving #2 possible seizure activity, computed tomography scan of the brain was normal, awaiting EEG results awaiting neurology input #3 diarrhea, C. diff toxin was negative, patient was started on when necessary Lomotil Will continue was current management at this time possible discharge to home in the next 1-2 days
[2016-06-05] MEDS: DIPHENOX-ATROP 2.5-0.025 MG 1 EACH TAB PO PRN ×2 (14:30→21:13)
[2016-06-05] MEDS: 0.9% NACL WITH KCL 20 MEQ/L 1,000 ML IV SCH (15:48)
[2016-06-05 17:10] LABS: Glucose,Whole Blood 163 mg/dL (75-99)
[2016-06-05 21:17] LABS: Glucose,Whole Blood 162 mg/dL (75-99)
--- NOTE | 2016-06-06 00:32 | P.CNNES ---
History of Present Illness Consult date: 06/05/16 Requesting physician: Meme Carlin Reason for Consult: Possible Seizure Chief complaint: Altered mental status History of Present Illness: Patient is a 56-year old male that is being consulted by neurology for possible seizure. Patient was brought to the ED by ambulance for history of alcoholism and possible seizure. He felt very shaky with some nausea, no hallucination. Patient admits to consuming on average of one fifth of liquor per day. Patient states that it is decreased from 1 pint per day approximately 7-10 days ago. Patient does state that he will increase his alcohol use with mood changes. Patient states that he ran out of money and cannot buy anymore intoxicants. It was noted by the ED staff that the patient had an Ativan prescription that was filled on May 28 which was empty when he presented to the ED. Patient was supine in bed in no acute distress. Patient reported that he receives Ativan from his primary care provider for his seizures. He states that his seizures increase with stress and/or EtOH use/misues. He states that Dr. Olmstead prescribed his seizure medications for several years before transitioning to his new primary care provider. He also states that his seizures increase when he attempts to decrease his alcohol consumption. He becomes angered and then his stress rises and his "seizure" occurs. Review of Systems I'll systems not noted in HPI or negative Past Medical History Past Medical History: Cancer, Diabetes Mellitus, GERD/Reflux, GI Bleed, Liver Disease, Seizure Disorder, Skin Disorder Additional Past Medical History / Comment(s): HX TORN ESOPHAGUS/UPPER GI BLEED, TY- KUMAR SYNDROME, MANY SEIZURES from alcohol withdrawal-LONG HX OF ETOH ABUSE MULTIPLE HEAD INJURIES, crohns, pancreatitis, DJD,RT NEPHROSIS, TINNITUS C-DIFF 02-23-15 Left shoulder dislocation BUT PLACED BACK IN-"BALL IS BROKE", Skin CA-2 time removal-"years ago." History of Any Multi-Drug Resistant Organisms: C-DIFF, MRSA Date of last positivie culture/infection: 2014 MDRO Source:: lungs, groin wound Past Surgical History: Hernia Repair, Tonsillectomy Additional Past Surgical History / Comment(s): neck fusion 6 or 7 yrs ago, Skin cancer removal on face-benign "years ago." vasectomy, rt hand ganglion cystectomy, numerous cysts removed.colonoscopy Past Anesthesia/Blood Transfusion Reactions: No Reported Reaction Additional Past Anesthesia/Blood Transfusion Reaction / Comment(s): PT HAS NEVER RECEIVED BLOOD. Past Psychological History: Anxiety, Depression Additional Psychological History / Comment(s): PT STATED HE LIVES IN [facility] IN [place], ADMITS TO DRINKING A FIFTH OF whiskey PER DAY. denies any depression or thoughts of harming self. Smoking Status: Current every day smoker Past Alcohol Use History: Abuse, Daily Additional Past Alcohol Use History / Comment(s): smokes 1.5 PPD; Past Drug Use History: None Reported Additional Drug Use History / Comment(s): Pt. denies drug ABUSE - Past Family History Father Family Medical History: No Reported History Additional Family Medical History / Comment(s): FATHER IS ALIVE AND HEALTHY. Mother Family Medical History: CVA/TIA Additional Family Medical History / Comment(s): mother of a cva at age 75 years Medications and Allergies Home Medications Medication Instructions Recorded Confirmed Type LORazepam [Ativan] 1 mg PO TID PRN 04/26/16 06/02/16 History INSULIN LISPRO (HumaLOG) [HumaLOG] See Protocol SQ AC-TID 06/02/16 06/02/16 History Loperamide [Imodium] 2 mg PO QID PRN 06/02/16 06/02/16 History Allergies Allergy/AdvReac Type Severity Reaction Status Date / Time coconut AdvReac cysts Verified 06/02/16 07:45 milk AdvReac Nausea Verified 06/02/16 07:45 peanut [Peanut Butter] AdvReac cyst Verified 06/02/16 07:45 SAW DUST Allergy rhinorrhea Uncoded 06/02/16 06:42 Physical Examination - Vital Signs Vital Signs: Vital Signs Temp Pulse Resp BP Pulse Ox 06/05/16 15:00 97.7 F 79 20 138/84 100 06/05/16 07:00 97.0 F L 67 20 155/97 99 Intake and Output 06/05/16 06/05/16 06/06/16 14:59 22:59 06:59 Intake Total 240 240 Balance 240 240 Intake: Oral 240 240 Other: # Voids 1 1 # Bowel Movements 1 Constitutional: AOx3, cooperative HEENT: NC/AT, no facial asymmetry is seen. Throat: Supple, no masses Respiratory: No increased work of breathing Cardiac: Regular rate and Rhythm GI: non tender, non distended Musculoskeletal: Terminologist strengths are equal bilaterally 5/5, Lower extremity strengths are equal bilaterally at 5/5. Neurological: CN II-XII in tact, patient was AOx3, speech and language are normal, no unilateralizing weakness, no seizure activity note on physical exam. Sensation was normal. Integementary: no rash, no erythema Psychiatric: mood and affect appropriate Results - Laboratory Findings CBC and BMP: 06/05/16 08:18 06/05/16 08:18 Abnormal Lab Findings: Abnormal Labs 06/02/16 06/02/16 06/02/16 06:36 12:13 16:53 MCV MCH Sodium Carbon Dioxide BUN Creatinine Glucose POC Glucose (mg/dL) 106 H 136 H 143 H Magnesium 06/02/16 06/03/16 06/03/16 21:42 02:24 06:38 MCV MCH Sodium Carbon Dioxide BUN Creatinine Glucose POC Glucose (mg/dL) 141 H 100 H 114 H Magnesium 06/03/16 06/03/16 06/03/16 08:15 08:15 12:01 MCV 106.2 H MCH Sodium 134 L Carbon Dioxide 20 L BUN 4 L Creatinine 0.57 L Glucose 115 H POC Glucose (mg/dL) 111 H Magnesium 06/03/16 06/03/16 06/04/16 17:08 21:25 02:04 MCV MCH Sodium Carbon Dioxide BUN Creatinine Glucose POC Glucose (mg/dL) 103 H 104 H 115 H Magnesium 06/04/16 06/04/16 06/04/16 07:31 08:38 08:38 MCV 102.6 H MCH 35.1 H Sodium 132 L Carbon Dioxide 20 L BUN 6 L Creatinine 0.56 L Glucose 156 H POC Glucose (mg/dL) 105 H Magnesium 1.4 L 06/04/16 06/05/16 06/05/16 17:23 01:42 08:18 MCV 106.1 H MCH Sodium Carbon Dioxide BUN Creatinine Glucose POC Glucose (mg/dL) 158 H 105 H Magnesium 06/05/16 06/05/16 06/05/16 08:18 11:59 17:02 MCV MCH Sodium 134 L Carbon Dioxide BUN 7 L Creatinine 0.62 L Glucose 168 H POC Glucose (mg/dL) 101 H 163 H Magnesium 06/05/16 20:59 MCV MCH Sodium Carbon Dioxide BUN Creatinine Glucose POC Glucose (mg/dL) 162 H Magnesium Assessment and Plan (1) Alcohol withdrawal Status: Acute (2) Altered mental status Status: Acute Plan: patient is well known to facility as needed EtOH user. Patient does have a history of alcohol withdrawals. Patient does have a significant history of alcohol use /addiction. Patient descriptions of events suggestive alcohol withdrawal. EEG ordered CT of the brain was negative Status: if patient's EEG is normal, neurology will clear the patient for discharge. patient can be followed up on an outpatient basis. if discharge is advised patient to contact our office within 10-14 days for an office visit. I discussed the patient's pertinent medical information with Dr. Kelly. He agrees with the plan of care as implemented.
[2016-06-06 07:35] LABS: Glucose,Whole Blood 124 mg/dL (75-99)
[2016-06-06] MEDS: HYDROcodone/APAP 7.5-325MG 1 EACH TAB PO PRN ×3 (08:22→23:17)
[2016-06-06] MEDS: LORazepam 1 MG TAB PO PRN ×3 (08:22→23:18)
[2016-06-06] MEDS: HEPARIN SODIUM,PORCINE 5,000 UNIT/ML 1 ML VIAL SQ SCH ×2 (08:22→21:15)
[2016-06-06] MEDS: NICOTINE 21MG/24HR PATCH TRANSDERM SCH (08:22)
[2016-06-06] MEDS: PANTOPRAZOLE 40 MG TABLET PO SCH ×2 (08:23→21:15)
[2016-06-06 08:44] LABS: Basophils % (A) 0 %; CH 35.4; CHCM 33.2; Eosinophils # (A) 0.4 k/uL (0-0.7); Eosinophils % (A) 5 %; HCT 50.4 % (39.0-53.0); HDW 2.16; HGB 16.5 gm/dL (13.0-17.5); Luc # (Auto) 0.15; Luc % (Auto) 2; Lymphocytes # (A) 2.1 k/uL (1.0-4.8); Lymphocytes % (A) 24 %; MCH 35.1 pg (25.0-35.0); MCHC 32.7 g/dL (31.0-37.0); MCV 107.3 fL (80.0-100.0); Macrocytosis Moderate; Mean Platelet Volume 7.6; Monocytes # (A) 0.4 k/uL (0-1.0); Monocytes % (A) 5 %; Neutrophils # (A) 5.8 k/uL (1.3-7.7); Neutrophils % (A) 65 %; RDW 13.6 % (11.5-15.5); WBC 8.9 k/uL (3.8-10.6); WBC (Perox) 8.93
[2016-06-06 09:03] LABS: Anion Gap 10 mmol/L; Blood Urea Nitrogen 11 mg/dL (9-20); Calcium 9.6 mg/dL (8.4-10.2); Carbon Dioxide 24 mmol/L (22-30); Chloride 103 mmol/L (98-107); Glucose 103 mg/dL (74-99); Magnesium 1.6 mg/dL (1.6-2.3); Non-African American GFR(MDRD) >60 (>60 ml/min/1.73 sqM); Potassium 4.5 mmol/L (3.5-5.1); Sodium 137 mmol/L (137-145)
[2016-06-06] MEDS: DIPHENOX-ATROP 2.5-0.025 MG 1 EACH TAB PO PRN ×2 (10:16→23:23)
[2016-06-06] MEDS: THIAMINE 100 MG TAB PO SCH ×2 (11:50→17:33)
[2016-06-06] MEDS: MULTIVITAMINS, THERA 1 EACH TAB PO SCH (11:50)
[2016-06-06 12:37] LABS: Glucose,Whole Blood 135 mg/dL (75-99)
--- NOTE | 2016-06-06 12:55 | P.PN ---
Subjective Principal diagnosis: Alcohol withdrawal with DT patient was admitted to [facility] due to alcohol withdrawal with early DTs and tremors He has been complaining of diarrhea Stools for C. diff was negative Patient stated that he had some seizure activity which was not witnessed Neurology consultation has been requested Computed tomography scan of the brain revealed evidence of atrophy without any other abnormalities computed tomography scan of the cervical spine was normal Objective - Vital Signs Vital signs: Vital Signs Temp 97.5 F L 06/06/16 07:00 Pulse 72 06/06/16 07:00 Resp 20 06/06/16 07:00 BP 140/72 06/06/16 07:00 Pulse Ox 98 06/06/16 07:00 Intake & Output 06/05/16 06/06/16 06/06/16 18:59 06:59 18:59 Intake Total 480 520 240 Balance 480 520 240 Intake: Oral 480 520 240 Other: # Voids 1 2 # Bowel Movements 1 1 - Exam in general patient is alert and oriented 3 in no apparent distress HEENT without any acute abnormality Neck is supple no JVD no goiter no lymphadenopathy no carotid bruit Chest exam reveals a few scattered rhonchi no wheezing Cardiac exam reveals regular heart sounds no gallops no murmurs Abdomen is soft nontender no organomegaly Extremity exam reveals no edema no cyanosis or clubbing - Labs CBC & Chem 7: 06/06/16 08:00 06/06/16 08:00 Labs: Abnormal Lab Results - Last 24 Hours (Table) 06/05/16 06/05/16 06/06/16 Range/Units 17:02 20:59 07:04 MCV (80.0-100.0) fL MCH (25.0-35.0) pg Glucose (74-99) mg/dL POC Glucose (mg/dL) 163 H 162 H 124 H (75-99) mg/dL 06/06/16 06/06/16 06/06/16 Range/Units 08:00 08:00 12:25 MCV 107.3 H (80.0-100.0) fL MCH 35.1 H (25.0-35.0) pg Glucose 103 H (74-99) mg/dL POC Glucose (mg/dL) 135 H (75-99) mg/dL Assessment and Plan Plan: #1 alcohol withdrawal with delirium tremens, improving #2 possible seizure activity, computed tomography scan of the brain was normal, awaiting EEG results awaiting neurology input #3 diarrhea, C. diff toxin was negative, patient was started on when necessary Lomotil #4 bilateral conjunctivitis started on Tobrex eyedrops At this time, awaiting reading on EEG and awaiting recommendation from neurology regarding anti-seizure medications Will continue was current management at this time possible discharge to home in the next 1-2 days
[2016-06-06] MEDS: TOBRAMYCIN 0.3% OPHTH DROPS 5 ML BTL BOTH EYES SCH ×4 (13:28→23:18)
[2016-06-06] MEDS: 0.9% NACL WITH KCL 20 MEQ/L 1,000 ML IV SCH (16:15)
[2016-06-06 17:06] LABS: Glucose,Whole Blood 103 mg/dL (75-99)
[2016-06-06 20:58] LABS: Glucose,Whole Blood 151 mg/dL (75-99)
[2016-06-07 02:44] LABS: Glucose,Whole Blood 189 mg/dL (75-99)
[2016-06-07] MEDS: TOBRAMYCIN 0.3% OPHTH DROPS 5 ML BTL BOTH EYES SCH ×4 (05:18→15:40)
[2016-06-07] MEDS: 0.9% NACL WITH KCL 20 MEQ/L 1,000 ML IV SCH (05:18)
[2016-06-07] MEDS: HEPARIN SODIUM,PORCINE 5,000 UNIT/ML 1 ML VIAL SQ SCH (07:39)
[2016-06-07] MEDS: NICOTINE 21MG/24HR PATCH TRANSDERM SCH (07:39)
[2016-06-07] MEDS: PANTOPRAZOLE 40 MG TABLET PO SCH (07:39)
[2016-06-07] MEDS: LORazepam 1 MG TAB PO PRN ×2 (07:43→16:36)
[2016-06-07] MEDS: HYDROcodone/APAP 7.5-325MG 1 EACH TAB PO PRN ×2 (07:43→15:41)
[2016-06-07 08:04] LABS: Glucose,Whole Blood 104 mg/dL (75-99)
[2016-06-07 08:53] LABS: Basophils % (A) 0 %; CH 35.4; CHCM 33.4; Eosinophils # (A) 0.6 k/uL (0-0.7); Eosinophils % (A) 7 %; HCT 43.1 % (39.0-53.0); HDW 2.17; HGB 14.1 gm/dL (13.0-17.5); Luc # (Auto) 0.16; Luc % (Auto) 2; Lymphocytes # (A) 1.8 k/uL (1.0-4.8); Lymphocytes % (A) 23 %; MCH 34.7 pg (25.0-35.0); MCHC 32.6 g/dL (31.0-37.0); MCV 106.4 fL (80.0-100.0); Macrocytosis Moderate; Mean Platelet Volume 7.6; Monocytes # (A) 0.5 k/uL (0-1.0); Monocytes % (A) 6 %; Neutrophils # (A) 5.1 k/uL (1.3-7.7); Neutrophils % (A) 63 %; RBC 4.05 m/uL (4.30-5.90); RDW 13.6 % (11.5-15.5); WBC 8.2 k/uL (3.8-10.6)
[2016-06-07 09:25] LABS: ALT 30 U/L (21-72); AST 25 U/L (17-59); Alkaline Phosphatase 63 U/L (38-126); Anion Gap 11 mmol/L; Blood Urea Nitrogen 15 mg/dL (9-20); Calcium 8.8 mg/dL (8.4-10.2); Carbon Dioxide 20 mmol/L (22-30); Chloride 101 mmol/L (98-107); Glucose 228 mg/dL (74-99); Magnesium 1.4 mg/dL (1.6-2.3); Non-African American GFR(MDRD) >60 (>60 ml/min/1.73 sqM); Potassium 4.3 mmol/L (3.5-5.1); Sodium 132 mmol/L (137-145); Total Bilirubin 0.8 mg/dL (0.2-1.3); Total Protein 6.2 g/dL (6.3-8.2)
--- NOTE | 2016-06-07 12:07 | P.DS ---
Providers Date of admission: 06/02/16 05:11 Expected date of discharge: 06/07/16 Attending physician: Tory Dunbar Consults: 06/04/16 13:48 Consult Physician Routine Consulting Provider: Mj Kelly Consult Reason/Comments: possible seizure Do you want consulting provider notified?: Yes Primary care physician: Bertha Garner Hospital Course: This is a 56-year-old gentleman with known history of significant alcohol abuse who presented to the emergency room after he ran out of money to buy alcohol and was starting having withdrawal symptoms. He was admitted to the hospital was treated aggressively with IV fluid hydration and as needed IV Ativan. Below is a list of his medical problems addressed during this hospitalization. Patient was counseled extensively about alcohol cessation. 1. Acute alcoholic gastritis: Continue Protonix 2. Alcohol withdrawal 3. Heavy alcohol abuse: Counseled extensively to quit 4. 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 Questionable seizure episode: Computed tomography scan of the brain with no acute findings. Patient was seen and evaluated by neurology. He was cleared for discharge home. 6. Dehydration with intravascular depletion 7. Hypomagnesemia: Replaced during this hospitalization Patient Condition at Discharge: Stable Plan - Discharge Summary Discharge Medication List Omeprazole [PriLOSEC] 40 mg PO AC-BRKFST #14 capsule. 04/08/16 [Rx] LORazepam [Ativan] 1 mg PO TID PRN 04/26/16 [History] INSULIN LISPRO (HumaLOG) [HumaLOG] See Protocol SQ AC-TID 06/02/16 [History] Loperamide [Imodium] 2 mg PO QID PRN 06/02/16 [History] Follow up Appointment(s)/Referral(s): Bertha Garner MD [Primary Care Provider] - 3 Days Patient Instructions/Handouts: Stress (DC) Activity/Diet/Wound Care/Special Instructions: No smoking, cessation info given on previous admissions. Regular diet. NO alcohol, references for cessation given.
[2016-06-07] MEDS: THIAMINE 100 MG TAB PO SCH ×2 (12:19→16:36)
[2016-06-07] MEDS: MULTIVITAMINS, THERA 1 EACH TAB PO SCH (12:19)
[2016-06-07 12:36] LABS: Glucose,Whole Blood 148 mg/dL (75-99)
[2016-06-07 15:57] VITALS: BP 146/70; PULSE 66; RESP 19; TEMP 96.9
[2016-06-07 17:42] LABS: Glucose,Whole Blood 161 mg/dL (75-99)
[2016-06-07] MEDS: DIPHENOX-ATROP 2.5-0.025 MG 1 EACH TAB PO PRN (17:44)
--- NOTE | 2016-06-23 09:14 | EEG ---
DATE OF SERVICE: 06/05/2016 INDICATIONS FOR EXAMINATION: Seizure. AGE: 56Y DESCRIPTION OF THE PROCEDURE: This EEG was performed using a 21-channel digital electroencephalograph, following the international 10 to 20 system. DESCRIPTION OF THE RECORDING: From the beginning of the tracing, and with the patient's eyes closed, the background rhythm was mostly consisting of 9 Hz alpha frequency in the posterior occipital leads. No obvious asymmetry is seen. Photic stimulation was performed with no driving response seen. No pathological waves were elicited. Hyperventilation was not performed. Rare movement artifacts are seen. The patient remains awake throughout the tracing. No epileptiform discharges were seen. His EKG lead showed a regular rate and rhythm. INTERPRETATION: This awake EEG can be considered within normal limits. There was no asymmetry seen. No epileptiform discharges were noticed. The absence of epileptiform discharges does not rule out the diagnosis of epilepsy, therefore, clinical correlation is recommended.
== END 2016-06-07 17:55 | disposition home or self-care (01) | DRG 897 ==
LOC: EC 03:15 → 4MS4W 05:11
PROVIDERS: ADMIT Internal Medicine; ATTEND Internal Medicine
DX: F10.231 Alcohol dependence with withdrawal delirium (principal); K50.90 Crohn's disease, unspecified, without complications; K29.20 Alcoholic gastritis without bleeding; E11.9 Type 2 diabetes mellitus without complications; E83.42 Hypomagnesemia; E86.0 Dehydration; F17.200 Nicotine dependence, unspecified, uncomplicated; K21.9 Gastro-esophageal reflux disease without esophagitis; M47.812 Spondylosis without myelopathy or radiculopathy, cervical region; R33.9 Retention of urine, unspecified; Z79.899 Other long term (current) drug therapy; Z85.828 Personal history of other malignant neoplasm of skin; Z98.1 Arthrodesis status; G40.909 Epilepsy, unspecified, not intractable, without status epilepticus
CPT/HCPCS: 36415; 70470; 71020; 80048; 80053; 80320; 82150; 82550; 82553; 83690; 83735; 85025; 87324; 93005; 95816; 96365; 96372; 96374; 96376; 99285

== ENCOUNTER 2016-06-17 13:46 | Inpatient (IN) | payer MEDICARE, OTHER ==
[2016-06-17] MEDS ORDERED: KETOROLAC 30 MG/ML 1 ML VIAL IVP STA (14:34)
[2016-06-17] MEDS ORDERED: SODIUM CHLORIDE 0.9% 500 ML IV STA ×2 (14:34→15:20)
[2016-06-17] MEDS ORDERED: METOCLOPRAMIDE 5 MG/ML 2 ML VIAL IVP STA (14:34)
[2016-06-17] MEDS ORDERED: SODIUM CHLORIDE 0.9% 1,000 ML IV STA (14:34)
[2016-06-17] MEDS ORDERED: FAMOTIDINE 20 MG/2 ML VIAL IV STA (14:34)
--- NOTE | 2016-06-17 14:37 | ED ---
General Adult HPI - General Chief complaint: Abdominal Pain Stated complaint: Vomiting Time Seen by Provider: 06/17/16 14:15 Source: patient, RN notes reviewed Mode of arrival: wheelchair Limitations: no limitations - History of Present Illness Initial comments: Patient is a pleasant 56-year-old male presenting to the emergency department complaining of abdominal pain. Onset was this morning. Discomfort has been severe and persistent since that time. Patient has had nausea with multiple episodes of vomiting. Patient has had a couple loose stools. Patient feels warm. Discomfort is right upper abdomen. No history of similar symptoms previously. No hematemesis or coffee-ground emesis. - Related Data Home Medications Medication Instructions Recorded Confirmed LORazepam [Ativan] 1 mg PO TID PRN 04/26/16 06/17/16 INSULIN LISPRO (HumaLOG) [HumaLOG] See Protocol SQ AC-TID 06/02/16 06/17/16 Loperamide [Imodium] 2 mg PO QID PRN 06/02/16 06/17/16 Previous Rx's Medication Instructions Recorded Omeprazole [PriLOSEC] 40 mg PO AC-BRKFST #14 capsule. 04/08/16 Allergies Allergy/AdvReac Type Severity Reaction Status Date / Time coconut AdvReac cysts Verified 06/17/16 14:29 milk AdvReac Nausea Verified 06/17/16 14:29 peanut [Peanut Butter] AdvReac cyst Verified 06/17/16 14:29 SAW DUST Allergy rhinorrhea Uncoded 06/02/16 06:42 Review of Systems ROS Statement: Those systems with pertinent positive or pertinent negative responses have been documented in the HPI. ROS Other: All systems not noted in ROS Statement are negative. Constitutional: Denies: weakness Eyes: Denies: eye pain ENT: Denies: ear pain Respiratory: Denies: cough Cardiovascular: Denies: chest pain Endocrine: Denies: fatigue Gastrointestinal: Reports: abdominal pain, nausea, vomiting, diarrhea Genitourinary: Denies: dysuria Musculoskeletal: Denies: back pain Skin: Denies: rash Neurological: Denies: weakness Past Medical History Past Medical History: Cancer, Diabetes Mellitus, GERD/Reflux, GI Bleed, Liver Disease, Seizure Disorder, Skin Disorder Additional Past Medical History / Comment(s): HX TORN ESOPHAGUS/UPPER GI BLEED, TY- KUMAR SYNDROME, MANY SEIZURES from alcohol withdrawal-LONG HX OF ETOH ABUSE MULTIPLE HEAD INJURIES, crohns, pancreatitis, DJD,RT NEPHROSIS, TINNITUS C-DIFF 02-23-15 Left shoulder dislocation BUT PLACED BACK IN-"BALL IS BROKE", Skin CA-2 time removal-"years ago." History of Any Multi-Drug Resistant Organisms: None Reported Date of last positivie culture/infection: 2014 MDRO Source:: lungs, groin wound Past Surgical History: Hernia Repair, Tonsillectomy Additional Past Surgical History / Comment(s): neck fusion 6 or 7 yrs ago, Skin cancer removal on face-benign "years ago." vasectomy, rt hand ganglion cystectomy, numerous cysts removed.colonoscopy Past Anesthesia/Blood Transfusion Reactions: No Reported Reaction Additional Past Anesthesia/Blood Transfusion Reaction / Comment(s): PT HAS NEVER RECEIVED BLOOD. Past Psychological History: Anxiety, Depression Additional Psychological History / Comment(s): PT STATED HE [facility]IVES IN [facility] IN [place], ADMITS TO DRINKING A FIFTH OF whiskey PER DAY. denies any depression or thoughts of harming self. Smoking Status: Current every day smoker Past Alcohol Use History: Abuse, Daily Additional Past Alcohol Use History / Comment(s): smokes 1.5 PPD; Past Drug Use History: None Reported Additional Drug Use History / Comment(s): Pt. denies drug ABUSE - Past Family History Father Family Medical History: No Reported History Additional Family Medical History / Comment(s): FATHER IS ALIVE AND HEALTHY. Mother Family Medical History: CVA/TIA Additional Family Medical History / Comment(s): mother of a cva at age 75 years General Exam Limitations: no limitations General appearance: alert, other (Appears uncomfortable) Head exam: Present: atraumatic Eye exam: Present: normal appearance, PERRL ENT exam: Present: normal oropharynx Neck exam: Present: normal inspection Respiratory exam: Present: normal lung sounds bilaterally. Absent: chest wall tenderness Cardiovascular Exam: Present: tachycardia GI/Abdominal exam: Present: soft, tenderness (Moderate tenderness right upper quadrant with some guarding), guarding, normal bowel sounds. Absent: distended , rebound, rigid, pulsatile mass Extremities exam: Present: normal inspection Neurological exam: Present: alert Psychiatric exam: Present: normal affect, normal mood Skin exam: Absent: rash Course Vital Signs 06/17/16 06/17/16 13:47 16:11 Temperature 97.9 F 98.0 F Pulse Rate 133 H 100 Respiratory 24 18 Rate Blood Pressure 141/97 145/70 O2 Sat by Pulse 94 L 99 Oximetry - Reevaluation(s) Reevaluation #1: 06/17/16 14:36 Emesis is at bedside with no signs of blood. EKG Findings - EKG Comments: EKG Findings:: Size tachycardia 114. VT 150. QRS 72. QT 352. QTC 485. Left axis. Inferior Q waves. Septal Q waves. No acute ST change. Medical Decision Making - Medical Decision Making Patient reexamined and appears more comfortable however continues to complain of discomfort. Computed tomography scan will be ordered. Case discussed in detail with Dr. Dunbar, who will admit for Dr. martinez with consult for Dr. Watters. IV fluids will be provided. - Lab Data Result diagrams: 06/17/16 14:20 06/17/16 14:20 Lab Results 06/17/16 06/17/16 06/17/16 Range/Units 14:20 14:20 14:20 WBC 17.6 H (3.8-10.6) k/uL RBC 4.39 (4.30-5.90) m/uL Hgb 15.0 (13.0-17.5) gm/dL Hct 45.0 (39.0-53.0) % MCV 102.4 H (80.0-100.0) fL MCH 34.2 (25.0-35.0) pg MCHC 33.4 (31.0-37.0) g/dL RDW 14.2 (11.5-15.5) % Plt Count 293 (150-450) k/uL Neutrophils % 89 % Lymphocytes % 6 % Monocytes % 4 % Eosinophils % 0 % Basophils % 1 % Neutrophils # 15.6 H (1.3-7.7) k/uL Lymphocytes # 1.1 (1.0-4.8) k/uL Monocytes # 0.6 (0-1.0) k/uL Eosinophils # 0.0 (0-0.7) k/uL Basophils # 0.1 (0-0.2) k/uL Macrocytosis Slight PT 11.1 (9.0-12.0) sec INR 1.1 (<1.1) APTT 22.3 (22.0-30.0) sec Sodium 134 L (137-145) mmol/L Potassium 4.0 (3.5-5.1) mmol/L Chloride 71 L* (98-107) mmol/L Carbon Dioxide 23 (22-30) mmol/L Anion Gap 40 mmol/L BUN 21 H (9-20) mg/dL Creatinine 1.19 (0.66-1.25) mg/dL Est GFR (MDRD) Af Amer >60 (>60 ml/min/1.73 sqM) Est GFR (MDRD) Non-Af >60 (>60 ml/min/1.73 sqM) Glucose 323 H (74-99) mg/dL Calcium 10.4 H (8.4-10.2) mg/dL Total Bilirubin 1.9 H (0.2-1.3) mg/dL AST 73 H (17-59) U/L ALT 54 (21-72) U/L Alkaline Phosphatase 95 (38-126) U/L Total Protein 8.3 H (6.3-8.2) g/dL Albumin 5.5 H (3.5-5.0) g/dL Amylase 95 (30-110) U/L Lipase 470 H (23-300) U/L - Radiology Data Radiology results: report reviewed (Ultrasound gallbladder shows nonobstructing right renal calculi. Nonspecific liver pattern. Liver cyst.), image reviewed ( Abdominal x-ray shows nonspecific findings.) Disposition Clinical Impression: Abdominal pain, Hypochloremia Disposition: ADMITTED IP TO THIS [facility] Time of Disposition: 16:44
[2016-06-17 14:58] LABS: Basophils # (A) 0.1 k/uL (0-0.2); Basophils % (A) 1 %; CH 36.1; CHCM 35.4; Eosinophils % (A) 0 %; HDW 2.09; Luc # (Auto) 0.14; Luc % (Auto) 1; Lymphocytes # (A) 1.1 k/uL (1.0-4.8); Lymphocytes % (A) 6 %; MCH 34.2 pg (25.0-35.0); MCHC 33.4 g/dL (31.0-37.0); MCV 102.4 fL (80.0-100.0); Macrocytosis Slight; Mean Platelet Volume 7.5; Monocytes # (A) 0.6 k/uL (0-1.0); Monocytes % (A) 4 %; Neutrophils # (A) 15.6 k/uL (1.3-7.7); Neutrophils % (A) 89 %; RBC 4.39 m/uL (4.30-5.90); RDW 14.2 % (11.5-15.5); WBC 17.6 k/uL (3.8-10.6); WBC (Perox) 17.01
[2016-06-17 15:06] LABS: INR 1.1 (<1.1); Partial Thromboplastin Time 22.3 sec (22.0-30.0); Prothrombin Time 11.1 sec (9.0-12.0)
[2016-06-17 15:10] LABS: ALT 54 U/L (21-72); AST 73 U/L (17-59); Alkaline Phosphatase 95 U/L (38-126); Amylase 95 U/L (30-110); Anion Gap 40 mmol/L; Blood Urea Nitrogen 21 mg/dL (9-20); Calcium 10.4 mg/dL (8.4-10.2); Carbon Dioxide 23 mmol/L (22-30); Glucose 323 mg/dL (74-99); Non-African American GFR(MDRD) >60 (>60 ml/min/1.73 sqM); Sodium 134 mmol/L (137-145); Total Bilirubin 1.9 mg/dL (0.2-1.3); Total Protein 8.3 g/dL (6.3-8.2)
[2016-06-17 15:18] LABS: Chloride 71 mmol/L (98-107)
--- NOTE | 2016-06-17 15:18 | XR ---
EXAMINATION TYPE: XR KUB DATE OF EXAM: 06/17/2016 3:09 PM COMPARISON: 12/04/2015 HISTORY: Pain TECHNIQUE: Single supine KUB image of the abdomen is obtained FINDINGS: Small bowel demonstrates no evidence for dilatation or air fluid levels. Gas and fecal material is seen in non-distended colon. No convincing evidence for pneumoperitoneum. No unusual calcifications. The lung bases are clear. Postoperative changes right hemipelvis. The osseous structures are intact. IMPRESSION: 1. Overall nonobstructive bowel gas pattern.
--- NOTE | 2016-06-17 16:03 | US ---
EXAMINATION TYPE: US gallbladder DATE OF EXAM: 06/17/2016 3:45 PM COMPARISON: US & CT CLINICAL HISTORY: Pain. Chest pain EXAM MEASUREMENTS: Liver Length: 16.8 cm Gallbladder Wall: 0.2 cm CBD: 0.5 cm Right Kidney: 11.5 x 4.9 x 5.0 cm Pancreas: obscured by overlying midline gas Liver: heterogeneous course echotexture, increased echogenicity, 1.1 x 0.9 x 1.0cm cystic area Gallbladder: visualized portions wnl, limited by overlying bowel gas Evidence for sonographic Sheppard's sign: yes CBD: visualized portions wnl Right Kidney: 0.7cm echogenic focus superior pole, 1.1 x 0.8 x 0.7cm hypoechoic area inferior pole IMPRESSION: 1. Nonobstructing right renal calculus. 2. Nonspecific pattern of liver can be seen with diffuse hepatocellular disease, hepatitis or fatty i nfiltration. 3. Simple cyst within the liver.
[2016-06-17] MEDS ORDERED: RX INFO: IV CONTRAST WAS GIVEN 1 EACH MISC MISCELLANE PRN (16:48)
[2016-06-17] MEDS ORDERED: NALOXONE 0.4 MG/ML 1 ML VIAL IV PRN (16:48)
[2016-06-17] MEDS ORDERED: ONDANSETRON 4 MG/2 ML VIAL IVP PRN (16:48)
[2016-06-17] MEDS ORDERED: MORPHINE SULFATE 4 MG/ML SYRINGE IV STA (16:48)
[2016-06-17] MEDS: SODIUM CHLORIDE 0.9% 1,000 ML IV SCH (17:15)
[2016-06-17] MEDS ORDERED: PANTOPRAZOLE 40 MG/10 ML VIAL IV STA (17:17)
--- NOTE | 2016-06-17 18:58 | CT ---
EXAMINATION TYPE: CT abdomen pelvis w con DATE OF EXAM: 06/17/2016 6:44 PM COMPARISON: 10/07/2015 HISTORY: Abdominal pain and vomiting. Hx of crohns disease. CT DLP: 535.4 mGycm CONTRAST: CT scan of the abdomen and pelvis is performed without Oral Contrast and with IV Contrast, patient in jected with 100 mL of Omnipaque 300. FINDINGS: LUNG BASES-: No visible nodule. No infiltrate. LIVER/GB: No calcified gallstones. No space occupying hepatic lesion. Biliary tree is of normal ca liber. There is evidence of hepatic steatosis. PANCREAS: No inflammation. No distinct mass. Atrophic changes are seen of the pancreas. SPLEEN: No splenic enlargement. No lesion seen. Splenic granulomas are noted. ADRENALS: No nodule. No thickening. KIDNEYS/BLADDER: No hydronephrosis. No nephrolithiasis. No disctinct renal mass. Urinary bladder g rossly unremarkable. BOWEL: Moderate thickening of the distal esophagus may reflect esophagitis. Underlying mass is diffic ult to exclude. Consider direct visualization. There is sliding-type hiatal hernia. There is nonvisua lization of the appendix. There is wall thickening involving the terminal ileum. There is also wall t hickening noted to involve the colon from the splenic flexure through the sigmoid colon. The findings may reflect Crohn's ileitis as well as Crohn's colitis. Relate clinically. No evidence for abscess o r perforation. Postoperative changes right lower quadrant. GENITAL ORGANS: No gross abnormality. LYMPH NODES: No greater than 1cm abdominal or pelvic lymph nodes are appreciated. AORTA: No significant abnormality. OSSEOUS STRUCTURES: No significant abnormality is seen. OTHER: Right-sided hydrocele. IMPRESSION: 1. 1. Suspect Crohn's ileitis as well as Crohn's colitis. Correlate clinically. 2. Moderate wall thickening involving the distal esophagus with small hiatal hernia. Suspect are betancourt ges of reflux esophagitis. Consider direct visualization if felt to be indicated. 3. Hepatic steatosis. 4. Atrophic changes of the pancreas.
[2016-06-17 20:06] LABS: Glucose,Whole Blood 263 mg/dL (75-99)
[2016-06-17] MEDS ORDERED: ACETAMINOPHEN TAB 325 MG TAB PO PRN (20:28)
[2016-06-17] MEDS ORDERED: INSULIN REGULAR 100 UNIT in SODIUM CHLORIDE 0.9% 100 ML IV SCH ×2 (20:45→21:15)
[2016-06-17 21:04] LABS: Glucose,Whole Blood 203 mg/dL (75-99)
[2016-06-17] MEDS: MORPHINE SULFATE 4 MG/ML SYRINGE IV PRN (21:08)
[2016-06-17] MEDS: LORazepam 1 MG TAB PO PRN (21:08)
[2016-06-17] MEDS: LOPERAMIDE 2 MG CAP PO PRN (21:08)
[2016-06-17 21:29] LABS: Appearance,Urine Clear (Clear); Bacteria,Urine Rare /hpf; Bilirubin,Urine Negative (Negative); Glucose,Urine (UA) 4+ (Negative); Leukocyte Esterase,Urine Negative (Negative); Mucus,Urine Rare /hpf; Nitrite,Urine Negative (Negative); PH, Urine 8.5 (5.0-8.0); Particle Count 1834; Protein,Urine 2+ (Negative); RBC,Urine 2 /hpf (0-5); Squamous Epithelial Cell,Urine <1 /hpf (0-4); UA Billing (MACRO vs. MICRO) MICRO; Urobilinogen,Urine <2.0 mg/dL (<2.0); WBC,Urine 1 /hpf (0-5)
[2016-06-17 22:34] LABS: Ketones,Urine 4+ (Negative); Specific Gravity,Urine >1.050 (1.001-1.035)
[2016-06-17 22:57] LABS: Glucose,Whole Blood 73 mg/dL (75-99)
[2016-06-17] MEDS: methylPREDNISolone SOD SUCCI 125 MG/2 ML VIAL IV SCH (23:18)
[2016-06-17] MEDS: PIPERACILLIN-TAZOBACTAM 3.375 GM in DEXTROSE/WATER 1 50ML.BAG IVPB SCH (23:19)
[2016-06-18 00:18] LABS: Glucose,Whole Blood 91 mg/dL (75-99)
[2016-06-18 02:14] LABS: Glucose,Whole Blood 238 mg/dL (75-99)
[2016-06-18] MEDS: MORPHINE SULFATE 4 MG/ML SYRINGE IV PRN ×5 (04:12→22:13)
[2016-06-18] MEDS: SODIUM CHLORIDE 0.9% 1,000 ML IV SCH ×3 (04:15→20:42)
[2016-06-18] MEDS: methylPREDNISolone SOD SUCCI 125 MG/2 ML VIAL IV SCH ×4 (05:57→23:26)
[2016-06-18] MEDS: PIPERACILLIN-TAZOBACTAM 3.375 GM in DEXTROSE/WATER 1 50ML.BAG IVPB SCH ×3 (05:57→20:35)
[2016-06-18] MEDS ORDERED: INSULIN LISPRO (humaLOG) 300 UNIT/3 ML VIAL SQ SCH (07:30)
[2016-06-18] MEDS: PANTOPRAZOLE 40 MG/10 ML VIAL IV SCH (07:39)
[2016-06-18] MEDS: INSULIN LISPRO (humaLOG) 300 UNIT/3 ML VIAL SQ SCH ×4 (07:42→21:10)
[2016-06-18] MEDS: LOPERAMIDE 2 MG CAP PO PRN (07:44)
[2016-06-18] MEDS: LORazepam 1 MG TAB PO PRN ×2 (07:44→16:47)
[2016-06-18 08:02] LABS: Glucose,Whole Blood 229 mg/dL (75-99)
--- NOTE | 2016-06-18 09:27 | P.CONS ---
History of Present Illness - Reason for Consult Consult date: 06/18/16 Abdominal pain history of Crohn's Requesting physician: Tory Dunbar - History of Present Illness 56-year-old gentleman with a history of Crohn's ileitis well-known to the GI service presents with acute abdominal pain, nausea, vomiting, and nonbloody loose bowel movements. He has a past medical history of recurrent Clostridium difficile colitis, seizure disorder, active EtOH abuse with suspected underlying alcohol liver disease, and medical noncompliance. He use to follow- up with a 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 He has been evaluated by the GI service multiple times over the last few years always refusing endoscopic workup of his symptoms. He has been years since his last EGD colonoscopy. Clostridium difficile toxin negative 06/04/2016. White count 17.6. Hemoglobin 15. MCV 102.4. Platelet 293. BUN 21. Creatinine 1.1. Glucose 323. Total bilirubin 1.9. AST 73. ALT 54. Alkaline phosphatase 95. Lipase 470. Low grade fever T-max 100.5. Last alcoholic drink a week ago. Abdominal ultrasound nonspecific pattern of liver can be seen with diffuse hepatocellular disease hepatitis or fatty infiltration with 1.1 x 1.0 cm cystic area. CBD within normal limits. Gallbladder visualized portions within normal limits. Liver length 16.[address] abdomen and pelvis no gallstones. Pancreas no inflammation or distinct mass. Atrophic changes seen in the pancreas. Terminal ileum wall thickening as well as involving the colon from the splenic flexure through the sigmoid. No abscess or perforation. Moderate wall thickening involving the distal esophagus. Last episode of diarrhea yesterday. Review of Systems Constitutional: Denies fever, chills, sweats, weight gain, or loss. HEENT: Negative for migraines, blurred vision or loss, earaches, drainage, tinnitus, oral mucosal lesions, dysphagia, or odynophagia. Cardiac: Negative for chest pain, arrhythmias, or palpitation. Respiratory: Negative for shortness of breath, hemoptysis, cough, or sputum production. Gastrointestinal: See HPI for pertinent findings. Genitourinary: Negative for hematuria, urgency, frequency, polyuria, dysuria, or penile discharge. Musculoskeletal: Negative for muscle aches, swelling, arthritis, and arthralgias. Neurologic: Seizure disorder. Negative for stroke or TIA. Endocrine: Negative for thyroid problems. Diabetes mellitus. Skin: History of skin cancer. Negative for rash or itching. Psychiatric: Negative history for depression and anxiety Past Medical History Past Medical History: Cancer, Diabetes Mellitus, GERD/Reflux, GI Bleed, Liver Disease, Seizure Disorder, Skin Disorder Additional Past Medical History / Comment(s): HX TORN ESOPHAGUS/UPPER GI BLEED, TY- KUMAR SYNDROME, MANY SEIZURES from alcohol withdrawal-LONG HX OF ETOH ABUSE MULTIPLE HEAD INJURIES, crohns, pancreatitis, DJD,RT NEPHROSIS, TINNITUS C-DIFF 02-23-14 Left shoulder dislocation BUT PLACED BACK IN-"BALL IS BROKE", Skin CA-2 time removal-"years ago." History of Any Multi-Drug Resistant Organisms: None Reported Year Discovered:: 2014 MDRO Source:: lungs, groin wound Past Surgical History: Hernia Repair, Tonsillectomy Additional Past Surgical History / Comment(s): neck fusion 6 or 7 yrs ago, Skin cancer removal on face-benign "years ago." vasectomy, rt hand ganglion cystectomy, numerous cysts removed.colonoscopy Past Anesthesia/Blood Transfusion Reactions: No Reported Reaction Additional Past Anesthesia/Blood Transfusion Reaction / Comm: PT HAS NEVER RECEIVED BLOOD. Past Psychological History: Anxiety, Depression Additional Psychological History / Comment(s): PT STATED HE LIVES ALONE IN [facility] IN [place],HAS A PET BETA FISH. ADMITS TO DRINKING A FIFTH OF whiskey PER DAY. denies any depression or thoughts of harming self. Smoking Status: Former smoker Past Alcohol Use History: Abuse, Daily Additional Past Alcohol Use History / Comment(s): USED TO SMOKE 1.5 PPD- QUIT 7 DAYS AGO; ADMITS TO DRINKING A FIFTH OF WHISKEY PER DAY Past Drug Use History: None Reported Additional Drug Use History / Comment(s): Pt. denies drug ABUSE - Past Family History Father Family Medical History: No Reported History Additional Family Medical History / Comment(s): FATHER IS ALIVE AND HEALTHY. Mother Family Medical History: CVA/TIA Additional Family Medical History / Comment(s): mother of a cva at age 75 years Medications and Allergies Home Medications Medication Instructions Recorded Confirmed Type LORazepam [Ativan] 1 mg PO TID PRN 04/26/16 06/17/16 History INSULIN LISPRO (HumaLOG) [HumaLOG] See Protocol SQ AC-TID 06/02/16 06/17/16 History Loperamide [Imodium] 2 mg PO QID PRN 06/02/16 06/17/16 History Allergies Allergy/AdvReac Type Severity Reaction Status Date / Time coconut AdvReac cysts Verified 06/17/16 14:29 milk AdvReac Nausea Verified 06/17/16 14:29 peanut [Peanut Butter] AdvReac cyst Verified 06/17/16 14:29 SAW DUST Allergy rhinorrhea Uncoded 06/02/16 06:42 Physical Exam Vitals: Vital Signs Temp Pulse Pulse Resp BP BP Pulse Ox 06/17/16 23:00 100.0 F H 82 19 136/82 96 06/17/16 19:01 100.5 F H 92 19 154/89 95 06/17/16 17:00 99.7 F H 111 H 18 141/69 87 L Intake and Output 06/17/16 06/18/16 06/18/16 22:59 06:59 14:59 Intake Total 4.6 Balance 4.6 Intake: Intake, IV Titration 4.6 Amount Insulin Regular 100 unit 4.6 In Sodium Chloride 0.9% 100 ml @ Titrate IV .Q0M [facility] Rx#:[id number] Other: # Voids 1 2 General appearance: The patient is alert, oriented, in no acute distress. HET: Head is normocephalic and atraumatic. Pupils are equal and reactive. Oropharynx is clear without lesions. Neck: Supple without lymphadenopathy. Trachea midline. Heart: S1 S2. Regular rate and rhythm. Lungs: No crackles or wheezes are heard. Abdomen: Soft, moderate upper abdomen epigastric LUQ tenderness extending across midabdomen, mildly bloated with bowel sounds. No peritoneal signs. No palpable organomegaly or masses. Extremities: Normal skin color and turgor. No cyanosis, rash, ulceration, clubbing, or edema. Radial and pedal pulses are 2/4 bilaterally. Neurological: No focal deficits. Strength and sensation are grossly intact. Results CBC & Chem 7: 06/17/16 14:20 06/17/16 14:20 Labs: Abnormal Lab Results - Last 24 Hours (Table) 06/17/16 06/17/16 06/17/16 Range/Units 20:04 21:03 21:20 POC Glucose (mg/dL) 263 H 203 H (75-99) mg/dL Urine pH 8.5 H (5.0-8.0) Ur Specific [place] >1.050 H (1.001-1.035) Urine Protein 2+ H (Negative) Urine Glucose (UA) 4+ H (Negative) Urine Ketones 4+ H (Negative) Urine Blood Small H (Negative) Urine Bacteria Rare H (None) /hpf Urine Mucus Rare H (None) /hpf 06/17/16 06/18/16 06/18/16 Range/Units 22:56 02:09 07:42 POC Glucose (mg/dL) 73 L 238 H 229 H (75-99) mg/dL Urine pH (5.0-8.0) Ur Specific [place] (1.001-1.035) Urine Protein (Negative) Urine Glucose (UA) (Negative) Urine Ketones (Negative) Urine Blood (Negative) Urine Bacteria (None) /hpf Urine Mucus (None) /hpf CT scan - abdomen: report reviewed (Reviewed by Dr. Anne) US - abdomen: report reviewed (Reviewed by Dr. Anne) Assessment and Plan (1) Abdominal pain Narrative/Plan: Abdominal pain multifactorial suspect related to exacerbations of Crohn's ileitis colitis cannot exclude an underlying superimposed infectious colitis. Suspect alcohol-induced pancreatitis with elevated lipase and features of underlying suspected chronic pancreatitis per CT imaging. Status: Acute (2) Alcoholic pancreatitis Status: Acute (3) Exacerbation of Crohn's disease of large intestine Status: Acute (4) Exacerbation of Crohn's disease of small intestine Status: Acute (5) H/O ETOH abuse Status: Acute (6) Alcoholic liver disease Status: Acute Plan: 1. Stool studies including Clostridium difficile testing. 2. IV steroids Solu-Medrol 60 mg every 6 hours. IV antibiotics. 3. Sed rate CRP. 4. Alcohol abstinence strongly advised. 5. Alcohol withdrawal protocol. Thank you for this kind referral and the opportunity to participate in the care of your patient. This consultation was discussed with Dr. Anne. The impression and plan of care have been directed as dictated.
[2016-06-18 09:33] LABS: Basophils % (A) 0 %; CH 35.5; CHCM 34.7; Eosinophils % (A) 0 %; HDW 1.95; HGB 14.7 gm/dL (13.0-17.5); Luc # (Auto) 0.03; Luc % (Auto) 0; Lymphocytes # (A) 0.7 k/uL (1.0-4.8); Lymphocytes % (A) 6 %; MCHC 34.1 g/dL (31.0-37.0); MCV 102.5 fL (80.0-100.0); Macrocytosis Slight; Mean Platelet Volume 7.5; Monocytes # (A) 0.1 k/uL (0-1.0); Monocytes % (A) 1 %; Neutrophils # (A) 10.4 k/uL (1.3-7.7); Neutrophils % (A) 92 %; RBC 4.19 m/uL (4.30-5.90); RDW 13.8 % (11.5-15.5); WBC 11.2 k/uL (3.8-10.6); WBC (Perox) 12.13
[2016-06-18 09:35] LABS: INR 1.1 (<1.1); Prothrombin Time 10.8 sec (9.0-12.0)
[2016-06-18 09:54] LABS: ALT 41 U/L (21-72); AST 52 U/L (17-59); Alkaline Phosphatase 60 U/L (38-126); Amylase 65 U/L (30-110); Anion Gap 11 mmol/L; Blood Urea Nitrogen 14 mg/dL (9-20); Calcium 8.7 mg/dL (8.4-10.2); Carbon Dioxide 38 mmol/L (22-30); Chloride 86 mmol/L (98-107); Glucose 84 mg/dL (74-99); Magnesium 1.1 mg/dL (1.6-2.3); Non-African American GFR(MDRD) >60 (>60 ml/min/1.73 sqM); Potassium 3.2 mmol/L (3.5-5.1); Sodium 135 mmol/L (137-145); Total Bilirubin 1.7 mg/dL (0.2-1.3); Total Protein 7.1 g/dL (6.3-8.2)
[2016-06-18 11:35] LABS: Glucose,Whole Blood 125 mg/dL (75-99)
[2016-06-18] MEDS ORDERED: LORazepam 2 MG/ML SYRINGE IV PRN ×3 (11:56)
[2016-06-18] MEDS ORDERED: POTASSIUM CHLORIDE ER 20 MEQ TAB.ER PO STA (13:55)
--- NOTE | 2016-06-18 13:58 | P.HPIM ---
History of Present Illness H&P Date: 06/18/16 Chief Complaint: Abdominal pain This is a 56-year-old male with a known history of alcohol abuse, Crohn's, liver disease, C. diff colitis, seizure disorder and medical noncompliance. Per GI service patient has refused maintenance medications for versus Crohn's as well as he always refuses any and endoscopic workup. Patient presents to the emergency room with complaints of abdominal pain that started yesterday morning. He is also having multiple episodes of nausea and vomiting. He had a couple loose stools. There is no blood in the stools. Denies any coffee ground emesis. On admission he had a temp of 100.5 heart rate of 133 white count 17.6. He was low dehydrated creatinine was 1.19. He had a computed tomography scan of the abdomen and pelvis showing suspected Crohn's ileitis as well as Crohn's colitis. Moderate wall thickening involving the distal esophagus with small hiatal hernia. Suspect changes of reflux esophagitis. Hepatic steatosis. Atrophic changes of the pancreas. Patient had was seen by GI service. Currently on IV Solu-Medrol and Zosyn. Surgical consult was also placed. Patient currently being treated for an acute Crohn's exacerbation and alcoholic pancreatitis. Review of Systems This for HPI otherwise unremarkable Past Medical History Past Medical History: Cancer, Diabetes Mellitus, GERD/Reflux, GI Bleed, Liver Disease, Seizure Disorder, Skin Disorder Additional Past Medical History / Comment(s): HX TORN ESOPHAGUS/UPPER GI BLEED, TY- KUMAR SYNDROME, MANY SEIZURES from alcohol withdrawal-LONG HX OF ETOH ABUSE MULTIPLE HEAD INJURIES, crohns, pancreatitis, DJD,RT NEPHROSIS, TINNITUS C-DIFF 1--15 Left shoulder dislocation BUT PLACED BACK IN-"BALL IS BROKE", Skin CA-2 time removal-"years ago." History of Any Multi-Drug Resistant Organisms: None Reported Date of last positivie culture/infection: 2014 MDRO Source:: lungs, groin wound Past Surgical History: Hernia Repair, Tonsillectomy Additional Past Surgical History / Comment(s): neck fusion 6 or 7 yrs ago, Skin cancer removal on face-benign "years ago." vasectomy, rt hand ganglion cystectomy, numerous cysts removed.colonoscopy Past Anesthesia/Blood Transfusion Reactions: No Reported Reaction Additional Past Anesthesia/Blood Transfusion Reaction / Comment(s): PT HAS NEVER RECEIVED BLOOD. Past Psychological History: Anxiety, Depression Additional Psychological History / Comment(s): PT STATED HE LIVES ALONE IN [facility] IN [place],HAS A PET BETA FISH. ADMITS TO DRINKING A FIFTH OF whiskey PER DAY. denies any depression or thoughts of harming self. Smoking Status: Former smoker Past Alcohol Use History: Abuse, Daily Additional Past Alcohol Use History / Comment(s): USED TO SMOKE 1.5 PPD- QUIT 7 DAYS AGO; ADMITS TO DRINKING A FIFTH OF WHISKEY PER DAY Past Drug Use History: None Reported Additional Drug Use History / Comment(s): Pt. denies drug ABUSE - Past Family History Father Family Medical History: No Reported History Additional Family Medical History / Comment(s): FATHER IS ALIVE AND HEALTHY. Mother Family Medical History: CVA/TIA Additional Family Medical History / Comment(s): mother of a cva at age 75 years Medications and Allergies Home Medications Medication Instructions Recorded Confirmed Type LORazepam [Ativan] 1 mg PO TID PRN 04/26/16 06/17/16 History INSULIN LISPRO (HumaLOG) [HumaLOG] See Protocol SQ AC-TID 06/02/16 06/17/16 History Loperamide [Imodium] 2 mg PO QID PRN 06/02/16 06/17/16 History Allergies Allergy/AdvReac Type Severity Reaction Status Date / Time coconut AdvReac cysts Verified 06/17/16 14:29 milk AdvReac Nausea Verified 06/17/16 14:29 peanut [Peanut Butter] AdvReac cyst Verified 06/17/16 14:29 SAW DUST Allergy rhinorrhea Uncoded 06/02/16 06:42 Physical Exam Vitals: Vital Signs Temp Pulse Pulse Resp BP BP Pulse Ox 06/18/16 07:00 98.7 F 71 16 133/83 92 L 06/17/16 23:00 100.0 F H 82 19 136/82 96 06/17/16 19:01 100.5 F H 92 19 154/89 95 06/17/16 17:00 99.7 F H 111 H 18 141/69 87 L Intake and Output 06/17/16 06/18/16 06/18/16 22:59 06:59 14:59 Intake Total 4.6 Output Total 300 Balance 4.6 -300 Intake: Intake, IV Titration 4.6 Amount Insulin Regular 100 unit 4.6 In Sodium Chloride 0.9% 100 ml @ Titrate IV .Q0M [facility] Rx#:[id number] Output: Urine 300 Other: Voiding Method Urinal # Voids 1 2 Head normocephalic Neck supple Lungs clear to auscultation bilaterally no wheezing or crackles Heart regular rate and rhythm S1-S2, no rub or gallop Abdomen diffuse abdominal pain with guarding Extremities no edema Neuro alert and orientated to 3 Results CBC & Chem 7: 06/18/16 09:05 06/18/16 09:05 Labs: Abnormal Lab Results - Last 24 Hours (Table) 06/17/16 06/17/16 06/17/16 Range/Units 20:04 21:03 21:20 WBC (3.8-10.6) k/uL RBC (4.30-5.90) m/uL MCV (80.0-100.0) fL Neutrophils # (1.3-7.7) k/uL Lymphocytes # (1.0-4.8) k/uL Sodium (137-145) mmol/L Potassium (3.5-5.1) mmol/L Chloride (98-107) mmol/L Carbon Dioxide (22-30) mmol/L Creatinine (0.66-1.25) mg/dL POC Glucose (mg/dL) 263 H 203 H (75-99) mg/dL Magnesium (1.6-2.3) mg/dL Total Bilirubin (0.2-1.3) mg/dL C-Reactive Protein (<10.0) mg/L Urine pH 8.5 H (5.0-8.0) Ur Specific [place] >1.050 H (1.001-1.035) Urine Protein 2+ H (Negative) Urine Glucose (UA) 4+ H (Negative) Urine Ketones 4+ H (Negative) Urine Blood Small H (Negative) Urine Bacteria Rare H (None) /hpf Urine Mucus Rare H (None) /hpf 06/17/16 06/18/16 06/18/16 Range/Units 22:56 02:09 07:42 WBC (3.8-10.6) k/uL RBC (4.30-5.90) m/uL MCV (80.0-100.0) fL Neutrophils # (1.3-7.7) k/uL Lymphocytes # (1.0-4.8) k/uL Sodium (137-145) mmol/L Potassium (3.5-5.1) mmol/L Chloride (98-107) mmol/L Carbon Dioxide (22-30) mmol/L Creatinine (0.66-1.25) mg/dL POC Glucose (mg/dL) 73 L 238 H 229 H (75-99) mg/dL Magnesium (1.6-2.3) mg/dL Total Bilirubin (0.2-1.3) mg/dL C-Reactive Protein (<10.0) mg/L Urine pH (5.0-8.0) Ur Specific [place] (1.001-1.035) Urine Protein (Negative) Urine Glucose (UA) (Negative) Urine Ketones (Negative) Urine Blood (Negative) Urine Bacteria (None) /hpf Urine Mucus (None) /hpf 06/18/16 06/18/16 06/18/16 Range/Units 09:05 09:05 09:05 WBC 11.2 H (3.8-10.6) k/uL RBC 4.19 L (4.30-5.90) m/uL MCV 102.5 H (80.0-100.0) fL Neutrophils # 10.4 H (1.3-7.7) k/uL Lymphocytes # 0.7 L (1.0-4.8) k/uL Sodium 135 L (137-145) mmol/L Potassium 3.2 L (3.5-5.1) mmol/L Chloride 86 L (98-107) mmol/L Carbon Dioxide 38 H (22-30) mmol/L Creatinine 0.61 L (0.66-1.25) mg/dL POC Glucose (mg/dL) (75-99) mg/dL Magnesium 1.1 L (1.6-2.3) mg/dL Total Bilirubin 1.7 H (0.2-1.3) mg/dL C-Reactive Protein 41.0 H (<10.0) mg/L Urine pH (5.0-8.0) Ur Specific [place] (1.001-1.035) Urine Protein (Negative) Urine Glucose (UA) (Negative) Urine Ketones (Negative) Urine Blood (Negative) Urine Bacteria (None) /hpf Urine Mucus (None) /hpf 06/18/16 Range/Units 11:23 WBC (3.8-10.6) k/uL RBC (4.30-5.90) m/uL MCV (80.0-100.0) fL Neutrophils # (1.3-7.7) k/uL Lymphocytes # (1.0-4.8) k/uL Sodium (137-145) mmol/L Potassium (3.5-5.1) mmol/L Chloride (98-107) mmol/L Carbon Dioxide (22-30) mmol/L Creatinine (0.66-1.25) mg/dL POC Glucose (mg/dL) 125 H (75-99) mg/dL Magnesium (1.6-2.3) mg/dL Total Bilirubin (0.2-1.3) mg/dL C-Reactive Protein (<10.0) mg/L Urine pH (5.0-8.0) Ur Specific [place] (1.001-1.035) Urine Protein (Negative) Urine Glucose (UA) (Negative) Urine Ketones (Negative) Urine Blood (Negative) Urine Bacteria (None) /hpf Urine Mucus (None) /hpf Thrombosis Risk Factor Assmnt - Choose All That Apply Any of the Below Risk Factors Present?: Yes Each Factor Represents 1 point: Age 41-60 years Other Risk Factors: No Other congenital or acquired thrombophilia - If yes, enter type in comment: No Thrombosis Risk Factor Assessment Total Risk Factor Score: 1 Thrombosis Risk Factor Assessment Level: Low Risk Assessment and Plan Plan: 1. Abdominal pain likely secondary to an acute Crohn's exacerbation. GI and surgical service are following. Patient's been started on IV Solu-Medrol and IV antibiotics. Stool for C. diff has been ordered. Computed tomography scan showed evidence of exacerbation of Crohn's. Continue with current pain management. 2. Acute alcoholic pancreatitis: Elevated lipase on admission has improved 3. History of alcohol abuse: Patient has been counseled on abstaining from alcohol use. Place patient on the CIWA protocol. Add thiamine, full [place] and multivitamin 4. Nicotine dependence. Discussed smoking cessation for greater than 3 minutes. Add nicotine patch. 5. Acute kidney injury: Likely related to his vomiting. Has improved with IV fluids. Continue to monitor. 6. Hypokalemia patient receiving potassium supplement. Repeat potassium level in a.m. GI prophylaxis Protonix and DVT prophylaxis subcu heparin Time with Patient: Greater than 30 (Greater than 50% of the total time spent in counseling and coordination of care.I performed an examination of the patient and discussed their management with the physician Training Personnel Supervisor. I have reviewed the Physician Training Personnel Supervisor's notes and agree with the documented findings and plan of care)
[2016-06-18] MEDS: NICOTINE 21MG/24HR PATCH TRANSDERM SCH (14:14)
[2016-06-18] MEDS: THIAMINE 100 MG TAB PO SCH (14:15)
[2016-06-18] MEDS: MULTIVITAMINS, THERA 1 EACH TAB PO SCH (14:15)
[2016-06-18] MEDS: FOLIC ACID 1 MG TAB PO SCH (14:15)
[2016-06-18 17:16] LABS: Glucose,Whole Blood 265 mg/dL (75-99)
--- NOTE | 2016-06-18 17:24 | P.GSCN ---
History of Present Illness Consult date: 06/18/16 Reason for Consult: Abdominal pain History of present illness: Patient hospitalized with complaints of epigastric abdominal pain. The pain was stabbing in nature. There was radiation to the back. There were numerous episodes of nausea and vomiting. To me denied any bowel habit changes although earlier to the nursing staff he described loose stools. He has a history of known pancreatitis. He said he was recently drinking heavily because he was kicked out of his apartment. Lipase was elevated. He had a CAT scan performed which showed thickening of the terminal ileum and colon suspicious for an exacerbation of Crohn's. The patient is noncompliant as it pertains to his Crohn's disease and workup. Review of Systems The patient denies any acute changes in his vision or hearing, no dysphagia or odynophagia, no chest pain or shortness of breath, no dysuria or hematuria, no headache, no runny nose, no rectal bleeding or melena, no unexplained weight loss Past Medical History Past Medical History: Cancer, Diabetes Mellitus, GERD/Reflux, GI Bleed, Liver Disease, Seizure Disorder, Skin Disorder Additional Past Medical History / Comment(s): HX TORN ESOPHAGUS/UPPER GI BLEED, TY- KUMAR SYNDROME, MANY SEIZURES from alcohol withdrawal-LONG HX OF ETOH ABUSE MULTIPLE HEAD INJURIES, crohns, pancreatitis, DJD,RT NEPHROSIS, TINNITUS C-DIFF 1--15 Left shoulder dislocation BUT PLACED BACK IN-"BALL IS BROKE", Skin CA-2 time removal-"years ago." History of Any Multi-Drug Resistant Organisms: None Reported Year Discovered:: 2014 MDRO Source:: lungs, groin wound Past Surgical History: Hernia Repair, Tonsillectomy Additional Past Surgical History / Comment(s): neck fusion 6 or 7 yrs ago, Skin cancer removal on face-benign "years ago." vasectomy, rt hand ganglion cystectomy, numerous cysts removed.colonoscopy Past Anesthesia/Blood Transfusion Reactions: No Reported Reaction Additional Past Anesthesia/Blood Transfusion Reaction / Comm: PT HAS NEVER RECEIVED BLOOD. Past Psychological History: Anxiety, Depression Additional Psychological History / Comment(s): PT STATED HE LIVES ALONE IN [facility] IN [place],HAS A PET BETA FISH. ADMITS TO DRINKING A FIFTH OF whiskey PER DAY. denies any depression or thoughts of harming self. Smoking Status: Former smoker Past Alcohol Use History: Abuse, Daily Additional Past Alcohol Use History / Comment(s): USED TO SMOKE 1.5 PPD- QUIT 7 DAYS AGO; ADMITS TO DRINKING A FIFTH OF WHISKEY PER DAY Past Drug Use History: None Reported Additional Drug Use History / Comment(s): Pt. denies drug ABUSE - Past Family History Father Family Medical History: No Reported History Additional Family Medical History / Comment(s): FATHER IS ALIVE AND HEALTHY. Mother Family Medical History: CVA/TIA Additional Family Medical History / Comment(s): mother of a cva at age 75 years Medications and Allergies Home Medications Medication Instructions Recorded Confirmed Type LORazepam [Ativan] 1 mg PO TID PRN 04/26/16 06/17/16 History INSULIN LISPRO (HumaLOG) [HumaLOG] See Protocol SQ AC-TID 06/02/16 06/17/16 History Loperamide [Imodium] 2 mg PO QID PRN 06/02/16 06/17/16 History Allergies Allergy/AdvReac Type Severity Reaction Status Date / Time coconut AdvReac cysts Verified 06/17/16 14:29 milk AdvReac Nausea Verified 06/17/16 14:29 peanut [Peanut Butter] AdvReac cyst Verified 06/17/16 14:29 SAW DUST Allergy rhinorrhea Uncoded 06/02/16 06:42 Surgical - Exam Vital Signs Temp Pulse Resp BP Pulse Ox 97.9 F 133 H 24 141/97 94 L 06/17/16 13:47 06/17/16 13:47 06/17/16 13:47 06/17/16 13:47 06/17/16 13:47 Physical exam: General: Well-developed, well-nourished HEENT: Normocephalic, sclerae nonicteric Abdomen: Epigastric tenderness, nondistended Extremities: No edema Neuro: Alert and oriented Results - Labs 06/18/16 09:05 06/18/16 09:05 Abnormal Lab Results - Last 24 Hours (Table) 06/17/16 06/17/16 06/17/16 Range/Units 20:04 21:03 21:20 WBC (3.8-10.6) k/uL RBC (4.30-5.90) m/uL MCV (80.0-100.0) fL Neutrophils # (1.3-7.7) k/uL Lymphocytes # (1.0-4.8) k/uL Sodium (137-145) mmol/L Potassium (3.5-5.1) mmol/L Chloride (98-107) mmol/L Carbon Dioxide (22-30) mmol/L Creatinine (0.66-1.25) mg/dL POC Glucose (mg/dL) 263 H 203 H (75-99) mg/dL Magnesium (1.6-2.3) mg/dL Total Bilirubin (0.2-1.3) mg/dL C-Reactive Protein (<10.0) mg/L Urine pH 8.5 H (5.0-8.0) Ur Specific Excello >1.050 H (1.001-1.035) Urine Protein 2+ H (Negative) Urine Glucose (UA) 4+ H (Negative) Urine Ketones 4+ H (Negative) Urine Blood Small H (Negative) Urine Bacteria Rare H (None) /hpf Urine Mucus Rare H (None) /hpf 06/17/16 06/18/16 06/18/16 Range/Units 22:56 02:09 07:42 WBC (3.8-10.6) k/uL RBC (4.30-5.90) m/uL MCV (80.0-100.0) fL Neutrophils # (1.3-7.7) k/uL Lymphocytes # (1.0-4.8) k/uL Sodium (137-145) mmol/L Potassium (3.5-5.1) mmol/L Chloride (98-107) mmol/L Carbon Dioxide (22-30) mmol/L Creatinine (0.66-1.25) mg/dL POC Glucose (mg/dL) 73 L 238 H 229 H (75-99) mg/dL Magnesium (1.6-2.3) mg/dL Total Bilirubin (0.2-1.3) mg/dL C-Reactive Protein (<10.0) mg/L Urine pH (5.0-8.0) Ur Specific Excello (1.001-1.035) Urine Protein (Negative) Urine Glucose (UA) (Negative) Urine Ketones (Negative) Urine Blood (Negative) Urine Bacteria (None) /hpf Urine Mucus (None) /hpf 06/18/16 06/18/16 06/18/16 Range/Units 09:05 09:05 09:05 WBC 11.2 H (3.8-10.6) k/uL RBC 4.19 L (4.30-5.90) m/uL MCV 102.5 H (80.0-100.0) fL Neutrophils # 10.4 H (1.3-7.7) k/uL Lymphocytes # 0.7 L (1.0-4.8) k/uL Sodium 135 L (137-145) mmol/L Potassium 3.2 L (3.5-5.1) mmol/L Chloride 86 L (98-107) mmol/L Carbon Dioxide 38 H (22-30) mmol/L Creatinine 0.61 L (0.66-1.25) mg/dL POC Glucose (mg/dL) (75-99) mg/dL Magnesium 1.1 L (1.6-2.3) mg/dL Total Bilirubin 1.7 H (0.2-1.3) mg/dL C-Reactive Protein 41.0 H (<10.0) mg/L Urine pH (5.0-8.0) Ur Specific Excello (1.001-1.035) Urine Protein (Negative) Urine Glucose (UA) (Negative) Urine Ketones (Negative) Urine Blood (Negative) Urine Bacteria (None) /hpf Urine Mucus (None) /hpf 06/18/16 06/18/16 Range/Units 11:23 17:06 WBC (3.8-10.6) k/uL RBC (4.30-5.90) m/uL MCV (80.0-100.0) fL Neutrophils # (1.3-7.7) k/uL Lymphocytes # (1.0-4.8) k/uL Sodium (137-145) mmol/L Potassium (3.5-5.1) mmol/L Chloride (98-107) mmol/L Carbon Dioxide (22-30) mmol/L Creatinine (0.66-1.25) mg/dL POC Glucose (mg/dL) 125 H 265 H (75-99) mg/dL Magnesium (1.6-2.3) mg/dL Total Bilirubin (0.2-1.3) mg/dL C-Reactive Protein (<10.0) mg/L Urine pH (5.0-8.0) Ur Specific Excello (1.001-1.035) Urine Protein (Negative) Urine Glucose (UA) (Negative) Urine Ketones (Negative) Urine Blood (Negative) Urine Bacteria (None) /hpf Urine Mucus (None) /hpf Diabetes panel 06/18/16 06/18/16 Range/Units 09:05 09:05 Sodium 135 L (137-145) mmol/L Potassium 3.2 L (3.5-5.1) mmol/L Chloride 86 L (98-107) mmol/L Carbon Dioxide 38 H (22-30) mmol/L BUN 14 (9-20) mg/dL Creatinine 0.61 L (0.66-1.25) mg/dL Glucose 84 (74-99) mg/dL Hemoglobin A1c 6.0 (4.2-6.1) % Calcium 8.7 (8.4-10.2) mg/dL AST 52 (17-59) U/L ALT 41 (21-72) U/L Alkaline Phosphatase 60 (38-126) U/L Total Protein 7.1 (6.3-8.2) g/dL Albumin 4.2 (3.5-5.0) g/dL Calcium panel 06/18/16 Range/Units 09:05 Calcium 8.7 (8.4-10.2) mg/dL Albumin 4.2 (3.5-5.0) g/dL Pituitary panel 06/18/16 Range/Units 09:05 Sodium 135 L (137-145) mmol/L Potassium 3.2 L (3.5-5.1) mmol/L Chloride 86 L (98-107) mmol/L Carbon Dioxide 38 H (22-30) mmol/L BUN 14 (9-20) mg/dL Creatinine 0.61 L (0.66-1.25) mg/dL Glucose 84 (74-99) mg/dL Calcium 8.7 (8.4-10.2) mg/dL Adrenal panel 06/18/16 Range/Units 09:05 Sodium 135 L (137-145) mmol/L Potassium 3.2 L (3.5-5.1) mmol/L Chloride 86 L (98-107) mmol/L Carbon Dioxide 38 H (22-30) mmol/L BUN 14 (9-20) mg/dL Creatinine 0.61 L (0.66-1.25) mg/dL Glucose 84 (74-99) mg/dL Calcium 8.7 (8.4-10.2) mg/dL Total Bilirubin 1.7 H (0.2-1.3) mg/dL AST 52 (17-59) U/L ALT 41 (21-72) U/L Alkaline Phosphatase 60 (38-126) U/L Total Protein 7.1 (6.3-8.2) g/dL Albumin 4.2 (3.5-5.0) g/dL Assessment and Plan (1) Alcoholic pancreatitis Narrative/Plan: Patient's presentation seems to be more on the basis of acute pancreatitis. Continue slow advancement of diet. No surgical intervention planned at this time. Agree with GIs evaluation. Status: Acute
[2016-06-18] MEDS: HEPARIN SODIUM,PORCINE 5,000 UNIT/ML 1 ML VIAL SQ SCH (20:42)
[2016-06-18 21:01] LABS: Glucose,Whole Blood 174 mg/dL (75-99)
[2016-06-18] MEDS: CALCIUM CARBONATE 500 MG CHEWABLE PO PRN (21:10)
[2016-06-19] MEDS: LORazepam 1 MG TAB PO PRN ×2 (00:46→09:08)
[2016-06-19] MEDS: MORPHINE SULFATE 4 MG/ML SYRINGE IV PRN ×2 (02:20→09:08)
[2016-06-19] MEDS: SODIUM CHLORIDE 0.9% 1,000 ML IV SCH ×2 (02:27→11:01)
[2016-06-19] MEDS: PIPERACILLIN-TAZOBACTAM 3.375 GM in DEXTROSE/WATER 1 50ML.BAG IVPB SCH ×2 (06:47→11:01)
[2016-06-19] MEDS: methylPREDNISolone SOD SUCCI 125 MG/2 ML VIAL IV SCH (06:47)
[2016-06-19] MEDS: NICOTINE 21MG/24HR PATCH TRANSDERM SCH (07:26)
[2016-06-19] MEDS: CALCIUM CARBONATE 500 MG CHEWABLE PO PRN (07:27)
[2016-06-19] MEDS: INSULIN LISPRO (humaLOG) 300 UNIT/3 ML VIAL SQ SCH ×2 (07:27→11:52)
[2016-06-19] MEDS: HEPARIN SODIUM,PORCINE 5,000 UNIT/ML 1 ML VIAL SQ SCH (07:27)
[2016-06-19] MEDS: PANTOPRAZOLE 40 MG/10 ML VIAL IV SCH (07:27)
[2016-06-19 07:34] LABS: Glucose,Whole Blood 254 mg/dL (75-99)
[2016-06-19 07:55] VITALS: BP 150/82; PULSE 69; RESP 19; TEMP 98.2
[2016-06-19 09:12] LABS: ALT 38 U/L (21-72); AST 45 U/L (17-59); Alkaline Phosphatase 61 U/L (38-126); Anion Gap 13 mmol/L; Blood Urea Nitrogen 12 mg/dL (9-20); Calcium 8.8 mg/dL (8.4-10.2); Carbon Dioxide 31 mmol/L (22-30); Chloride 87 mmol/L (98-107); Glucose 219 mg/dL (74-99); Non-African American GFR(MDRD) >60 (>60 ml/min/1.73 sqM); Potassium 3.4 mmol/L (3.5-5.1); Sodium 131 mmol/L (137-145); Total Bilirubin 1.3 mg/dL (0.2-1.3); Total Protein 6.7 g/dL (6.3-8.2)
[2016-06-19 09:21] LABS: Basophils % (A) 0 %; CH 35.7; Eosinophils % (A) 0 %; HCT 44.3 % (39.0-53.0); HDW 1.97; HGB 14.5 gm/dL (13.0-17.5); Luc # (Auto) 0.02; Luc % (Auto) 0; Lymphocytes # (A) 0.7 k/uL (1.0-4.8); Lymphocytes % (A) 6 %; MCH 34.5 pg (25.0-35.0); MCHC 32.8 g/dL (31.0-37.0); MCV 105.3 fL (80.0-100.0); Macrocytosis Moderate; Mean Platelet Volume 8.1; Monocytes # (A) 0.1 k/uL (0-1.0); Monocytes % (A) 1 %; Neutrophils # (A) 11.9 k/uL (1.3-7.7); Neutrophils % (A) 93 %; RBC 4.21 m/uL (4.30-5.90); RDW 13.7 % (11.5-15.5); WBC 12.8 k/uL (3.8-10.6); WBC (Perox) 13.88
[2016-06-19] MEDS ORDERED: predniSONE 20 MG TAB PO SCH (09:30)
--- NOTE | 2016-06-19 10:00 | P.PN ---
Subjective Principal diagnosis: Abdominal pain The patient's abdominal pain and nausea have improved. He's hungry. Objective - Vital Signs Vital signs: Vital Signs Temp 98.2 F 06/19/16 07:00 Pulse 69 06/19/16 07:00 Resp 19 06/19/16 07:00 BP 150/82 06/19/16 07:00 Pulse Ox 95 06/19/16 07:00 Intake & Output 06/18/16 06/19/16 06/19/16 18:59 06:59 18:59 Intake Total 600 Output Total 1100 Balance -500 Intake: Oral 600 Output: Urine 1100 Other: Voiding Method Urinal Urinal # Voids 3 2 - Constitutional Constitutional Comment(s): He is a chronic ill-appearing General appearance: Present: cooperative, no acute distress - Gastrointestinal General gastrointestinal: Present: distended (Mildly without tympany), soft. Absent: tenderness - Labs CBC & Chem 7: 06/19/16 07:58 06/19/16 07:58 Labs: Abnormal Lab Results - Last 24 Hours (Table) 06/18/16 06/18/16 06/18/16 Range/Units 09:05 09:05 11:23 WBC (3.8-10.6) k/uL RBC (4.30-5.90) m/uL MCV (80.0-100.0) fL Neutrophils # (1.3-7.7) k/uL Lymphocytes # (1.0-4.8) k/uL Sodium 135 L (137-145) mmol/L Potassium 3.2 L (3.5-5.1) mmol/L Chloride 86 L (98-107) mmol/L Carbon Dioxide 38 H (22-30) mmol/L Creatinine 0.61 L (0.66-1.25) mg/dL Glucose (74-99) mg/dL POC Glucose (mg/dL) 125 H (75-99) mg/dL Magnesium 1.1 L (1.6-2.3) mg/dL Total Bilirubin 1.7 H (0.2-1.3) mg/dL C-Reactive Protein 41.0 H (<10.0) mg/L 06/18/16 06/18/16 06/19/16 Range/Units 17:06 20:55 07:12 WBC (3.8-10.6) k/uL RBC (4.30-5.90) m/uL MCV (80.0-100.0) fL Neutrophils # (1.3-7.7) k/uL Lymphocytes # (1.0-4.8) k/uL Sodium (137-145) mmol/L Potassium (3.5-5.1) mmol/L Chloride (98-107) mmol/L Carbon Dioxide (22-30) mmol/L Creatinine (0.66-1.25) mg/dL Glucose (74-99) mg/dL POC Glucose (mg/dL) 265 H 174 H 254 H (75-99) mg/dL Magnesium (1.6-2.3) mg/dL Total Bilirubin (0.2-1.3) mg/dL C-Reactive Protein (<10.0) mg/L 06/19/16 06/19/16 Range/Units 07:58 07:58 WBC 12.8 H (3.8-10.6) k/uL RBC 4.21 L (4.30-5.90) m/uL MCV 105.3 H (80.0-100.0) fL Neutrophils # 11.9 H (1.3-7.7) k/uL Lymphocytes # 0.7 L (1.0-4.8) k/uL Sodium 131 L (137-145) mmol/L Potassium 3.4 L (3.5-5.1) mmol/L Chloride 87 L (98-107) mmol/L Carbon Dioxide 31 H (22-30) mmol/L Creatinine 0.56 L (0.66-1.25) mg/dL Glucose 219 H (74-99) mg/dL POC Glucose (mg/dL) (75-99) mg/dL Magnesium (1.6-2.3) mg/dL Total Bilirubin (0.2-1.3) mg/dL C-Reactive Protein (<10.0) mg/L Assessment and Plan (1) Abdominal pain Status: Acute (2) Alcoholic pancreatitis Status: Acute (3) Crohns disease Status: Acute Plan: The patient is nonsurgical. His diet has been advanced. Will follow on a when necessary basis.
[2016-06-19] MEDS: THIAMINE 100 MG TAB PO SCH (11:00)
[2016-06-19] MEDS: FOLIC ACID 1 MG TAB PO SCH (11:01)
[2016-06-19] MEDS: MULTIVITAMINS, THERA 1 EACH TAB PO SCH (11:01)
--- NOTE | 2016-06-19 11:16 | PN ---
DATE OF SERVICE: 06/19/2016 The patient is a 56-year-old white male with history of Crohn disease, heavy alcohol abuse admitted to the hospital with nausea, vomiting, diarrhea, and abdominal pain for the last few days duration. In the past, he had recurrent C. difficile colitis. On this admission, C. difficile was negative. He was started on IV Solu-Medrol for exacerbation of Crohn disease and this morning he says his abdominal pain has resolved. No further episodes of nausea or vomiting and in fact had no diarrhea. The patient does not follow with any GI. 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 abut 3 or 4 years ago. He also had mild pancreatitis during this hospitalization but not feeling much better. On physical examination, he appears comfortable in no apparent distress. Vital signs are stable. Blood pressure is 141/75, pulse rate 70, temperature 98.4. HEENT EXAMINATION: Unremarkable. Conjunctivae pink. Sclerae anicteric. Oral cavity, no lesions. NECK: No JVD or lymph node enlargement. Chest was clear to auscultation. HEART: Regular rate and rhythm. ABDOMEN: Soft, mild tenderness in the epigastric area. Bowel sounds are positive. No organomegaly. EXTREMITIES: No pedal edema. SKIN: No rashes. NEURO: He is alert and oriented x3. No focal deficits. Labs from yesterday, WBC 11.2, hemoglobin 14.7, platelets normal. Basic metabolic panel is within normal limits. Amylase 65, lipase is 223. CT of the abdomen and pelvis done at the time of admission to the hospital showed moderate thickening of the distal esophagus and thickening of the terminal ileum consistent with Crohn ileitis. IMPRESSION: 1. Nausea, vomiting, diarrhea, and abdominal pain, possibly related to exacerbation of Crohn's presently on IV Solu-Medrol 60 mg q.6 hours, doing much better. 2. Alcohol related pancreatitis with amylase and lipase today have been normal. 3. History of heavy alcohol abuse. RECOMMENDATIONS: 1. Advance diet as tolerated. 2. Will discontinue the Solu-Medrol and start him on prednisone 40 mg daily to be tapered by 5 mg every week on an outpatient basis. 3. Repeat labs in the morning. 4. Will follow him closely during his hospital stay. Thank you for this consultation.
[2016-06-19 12:00] LABS: Glucose,Whole Blood 159 mg/dL (75-99)
[2016-06-19] MEDS ORDERED: MULTIVITAMINS, THERA 1 EACH TAB PO SCH (12:00)
[2016-06-19] MEDS ORDERED: THIAMINE 100 MG TAB PO SCH (12:00)
[2016-06-19] MEDS ORDERED: FOLIC ACID 1 MG TAB PO SCH (12:00)
--- NOTE | 2016-07-23 12:09 | P.DS ---
Providers Date of admission: 06/17/16 16:48 Expected date of discharge: 06/19/16 Attending physician: Tory Dunbar Consults: 06/17/16 16:49 Consult Physician Urgent Consulting Provider: Jorge A Reilly Consult Reason/Comments: ab pain Do you want consulting provider notified?: Yes 06/17/16 20:24 Consult Physician Routine Consulting Provider: Mariama Anne Consult Reason/Comments: abdominal pain Do you want consulting provider notified?: Yes Primary care physician: Bertha Garner Hospital Course: Discharge diagnosis Please note patient left AGAINST MEDICAL ADVICE 1. Abdominal pain likely secondary to an acute Crohn's exacerbation and acute alcoholic pancreatitis. 2. Acute Crohn's exacerbation: GI and surgical service are following. Patient' s been started on IV Solu-Medrol and IV antibiotics. Stool for C. diff has been ordered. Computed tomography scan showed evidence of exacerbation of Crohn 's. Continue with current pain management. 2. Acute alcoholic pancreatitis: Elevated lipase on admission has improved 3. History of alcohol abuse: Patient has been counseled on abstaining from alcohol use. Place patient on the CIWA protocol. Add thiamine, folic acid and multivitamin 4. Nicotine dependence. Discussed smoking cessation for greater than 3 minutes. Add nicotine patch. 5. Acute kidney injury: Likely related to his vomiting. Has improved with IV fluids. Continue to monitor. 6. Hypokalemia patient receiving potassium supplement. Repeat potassium level in a.m. Hospital course This is a 56-year-old male with a known history of alcohol abuse, Crohn's, liver disease, C. diff colitis, seizure disorder and medical noncompliance. Per GI service patient has refused maintenance medications for versus Crohn's as well as he always refuses any and endoscopic workup. Patient presents to the emergency room with complaints of abdominal pain that started yesterday morning. He is also having multiple episodes of nausea and vomiting. He had a couple loose stools. There is no blood in the stools. Denies any coffee ground emesis. On admission he had a temp of 100.5 heart rate of 133 white count 17.6. He was low dehydrated creatinine was 1.19. He had a computed tomography scan of the abdomen and pelvis showing suspected Crohn's ileitis as well as Crohn's colitis. Moderate wall thickening involving the distal esophagus with small hiatal hernia. Suspect changes of reflux esophagitis. Hepatic steatosis. Atrophic changes of the pancreas. Patient had was seen by GI service. Currently on IV Solu-Medrol and Zosyn. Surgical consult was also placed. Patient currently being treated for an acute Crohn's exacerbation and alcoholic pancreatitis. Patient was seen by both GI service and surgical service. He was initially made nothing by mouth. On IV steroids for the Crohn' s exacerbation and also I receiving pain medication as needed. He was also evaluated by the psychiatric social worker supervisor due to his significant alcohol abuse history. Patient was still undergoing treatment when he left AGAINST MEDICAL ADVICE. Please refer to chart for any further details. Please note that family dictating this discharge summary for Dr. Dunbar. I do not see exam the patient on the day that he left the hospital. Patient did leave AGAINST MEDICAL ADVICE. Patient Condition at Discharge: Stable Plan - Discharge Summary New Discharge Prescriptions: No Action Omeprazole [PriLOSEC] 40 mg PO AC-BRKFST #14 capsule. LORazepam [Ativan] 1 mg PO TID PRN PRN Reason: ANXIETY/SEIZURE INSULIN LISPRO (HumaLOG) [HumaLOG] See Protocol SQ AC-TID Loperamide [Imodium] 2 mg PO QID PRN PRN Reason: Loose Stool Discharge Medication List Omeprazole [PriLOSEC] 40 mg PO AC-BRKFST #14 capsule. 04/08/16 [Rx] LORazepam [Ativan] 1 mg PO TID PRN 04/26/16 [History] INSULIN LISPRO (HumaLOG) [HumaLOG] See Protocol SQ AC-TID 06/02/16 [History] Loperamide [Imodium] 2 mg PO QID PRN 06/02/16 [History] Follow up Appointment(s)/Referral(s): Bertha Garner MD [Primary Care Provider] - 1-2 days [facility], [NON-STAFF] - Discharge Disposition: Left Against Medical Advice
== END 2016-06-19 13:01 | disposition left against medical advice (07) | DRG 385 ==
LOC: EC 13:46 → 4MS4W 16:48
PROVIDERS: ADMIT Internal Medicine; ATTEND Internal Medicine
DX: K50.80 Crohn's disease of both small and large intestine without complications (principal); K85.20 Alcohol induced acute pancreatitis without necrosis or infection; N17.9 Acute kidney failure, unspecified; K76.0 Fatty (change of) liver, not elsewhere classified; F10.10 Alcohol abuse, uncomplicated; K70.9 Alcoholic liver disease, unspecified; E86.0 Dehydration; E87.6 Hypokalemia; K21.9 Gastro-esophageal reflux disease without esophagitis; G40.909 Epilepsy, unspecified, not intractable, without status epilepticus; K44.9 Diaphragmatic hernia without obstruction or gangrene; F17.200 Nicotine dependence, unspecified, uncomplicated; F41.9 Anxiety disorder, unspecified; E11.9 Type 2 diabetes mellitus without complications; M19.91 Primary osteoarthritis, unspecified site; Z91.19 Patient's noncompliance with other medical treatment and regimen; Z98.1 Arthrodesis status; Z85.828 Personal history of other malignant neoplasm of skin; Z79.4 Long term (current) use of insulin; Z79.899 Other long term (current) drug therapy
CPT/HCPCS: 36415; 74000; 74177; 76705; 80053; 81001; 82150; 83036; 83690; 83735; 85025; 85610; 85652; 85730; 86140; 93005; 96361; 96374; 96375; 99285

== ENCOUNTER 2019-01-01 11:03 | Day surgery (SDC) | payer MEDICARE, OTHER ==
[2018-12-28 18:17] VITALS: BMI 24.5
--- NOTE | 2019-01-01 05:15 | HP ---
HISTORY AND PHYSICAL CHIEF COMPLAINT: A right neck mass. HISTORY OF PRESENT ILLNESS: The patient is a 58-year-old male who was recently seen in my office complaining of having a history of a lump in the right side of his neck which has been there for approximately 2 to 3 weeks. The patient has been seen by his family physician and was placed on an oral antibiotic, Augmentin 875 mg b.i.d. At the time that he was seen in my office, he was still on this medication and clinical examination of the patient's right neck revealed the patient has a large firm, well-circumscribed 1.5 to 2 cm nonfluctuant, slightly tender mass located in the right anterior triangle of the neck. It was recommended that the patient undergo excision of this mass under general anesthesia. PAST MEDICAL HISTORY: Past medical history reveals he has no known allergies to medications. His current medications include clonidine, Imodium, Lyrica, melatonin, prednisone, Prilosec, clotrimazole lozenges, clotrimazole cream. Previous surgeries include excision of left neck mass, tonsillectomy, adenoidectomy, excision of right and left sebaceous cyst of the earlobes, excision of cystic lesion of the right axilla, cervical fusion, a right herniorrhaphy and excision of left mass for total of 2 times. He has no history of asthma, diabetes mellitus or hypertension, but he has been diagnosed with Crohn disease. REVIEW OF SYSTEMS: The review of systems is positive with respect to the gastrointestinal system in that the patient is known to have Crohn disease. The remainder of the review of systems is unremarkable. PHYSICAL EXAMINATION: Patient is a 58-year-old male who is alert and cooperative. HEENT EXAMINATION: Patient is normocephalic. Tympanic membranes are normal. Middle ear spaces are free of any fluid or infection. Pupils equal, round, reactive to light and accommodation. Extraocular movements within normal limits. Intranasal examination reveals moderate to severe septal deviation with compensatory hypertrophy of the inferior turbinates and a moderate amount of mucus on the mucous membranes draining down the posterior pharynx. Examination of the oropharynx is unremarkable. Palpation of the neck reveals approximately 1.5 to 2 cm well-circumscribed, mobile, slightly tender, and nonfluctuant mass in the right anterior cervical triangle of the neck. No other associated neck masses are noted. Cranial nerves 2 through 12 and the remainder of the head and neck exam are within normal limits. CHEST/CARDIOVASCULAR: Both lung lamb are clear to percussion and auscultation. The patient is in regular sinus rhythm. S1 and S2 are present without any murmurs, S3s or S4s. Peripheral pulses are bilaterally symmetrical. ABDOMEN: There is no evidence any masses, megaly or tenderness. Abdomen is soft. Skin is unremarkable. Musculoskeletal and neurological are within normal limits. RECTAL EXAM: The rectal exam is deferred at this time because the patient has this done on a regular basis at his family physician's office. The remainder of physical exam is essentially unremarkable. IMPRESSION: Right neck mass. PLAN: The patient is scheduled to undergo excision of right neck mass under general anesthesia in a.m. ATTENTION RNS IN THE PRE-SURGICAL AREA: I have ordered for this patient to receive the following medications: Ofirmev 1000 mg IV and 3 grams Ancef IV, both to be given once an intravenous line has been established. If the pharmacy department sends a different pre-surgical prophylactic antibiotic medication to the pre-surgical area for this patient, that order should be cancelled and the medication should be returned to the pharmacy department and please make sure that the patient's account is credited appropriately. I have discussed the risks, benefits and alternative therapies for the above-mentioned procedure and for both sedation/analgesia as well as necessary blood product administration, if indicated, as they pertain to this patient. The patient has indicated his or her understanding and acceptance of the risks and procedures discussed. MMODL / IJN: [id number] /
[~2019-01-01 11:03] MED LIST: DEXAMETHASONE SOD PHOSPHATE 10 MG/ML 1 ML VIAL IV ONE; HYDROmorphone 0.5 MG/0.5 ML SYRINGE IVP PRN; LACTATED RINGERS 1,000 ML IV SCH; LIDOCAINE 1% 20 ML VIAL (10MG/ML) FOR IV START INTRADERMA PRN; ONDANSETRON 4 MG/2 ML VIAL IVP ONE; Pre Op ABX Message 1 EACH MISC MISCELLANE ONE; fentaNYL (PF) 50 MCG/ML 2 ML AMP IV PRN
[2019-01-01 11:40] LABS: Glucose,Whole Blood 169 mg/dL (75-99)
[2019-01-01] MEDS ORDERED: ACETAMINOPHEN IV (For NPO) 1,000 MG in EMPTY BAG 1 BAG IVPB ONE (12:00)
[2019-01-01] MEDS ORDERED: .MORPHINE SULFATE (INJ) 10 MG/ML SYRINGE ONE (13:08)
[2019-01-01] MEDS ORDERED: ROCURONIUM BROMIDE 10 MG/ML 10 ML VIAL IV ONE (13:08)
[2019-01-01] MEDS ORDERED: SUCCINYLCHOLINE CHLORIDE 100 MG/5 ML SYR IV ONE (13:08)
[2019-01-01] MEDS ORDERED: PROPOFOL 10 MG/ML 20 ML VIAL IV ONE (13:08)
[2019-01-01] MEDS ORDERED: NEOSTIGMINE 1 MG/ML 10 ML VIAL ONE (13:08)
[2019-01-01] MEDS ORDERED: MIDAZOLAM 2 MG/2 ML VIAL ONE (13:08)
[2019-01-01] MEDS ORDERED: DEXAMETHASONE SOD PHOS (MDV) 100 MG/10 ML VIAL ONE (13:08)
[2019-01-01] MEDS ORDERED: LIDOCAINE 1% INJ 10MG/ML (20 ML MDV) ONE (13:08)
[2019-01-01] MEDS ORDERED: fentaNYL (PF) 50 MCG/ML 2 ML AMP ONE (13:08)
[2019-01-01] MEDS ORDERED: GLYCOPYRROLATE 0.2 MG/ML 2 ML VIAL ONE (13:08)
[2019-01-01] MEDS ORDERED: ESMOLOL 100 MG/10 ML VIAL ONE (13:08)
[2019-01-01] MEDS ORDERED: THROMBIN (BOVINE) 5,000 UNIT VIAL TOPICAL ONE (14:40)
[2019-01-01] MEDS ORDERED: BACITRACIN 500 UNIT/GM OINT 28.4 GM TUBE TOPICAL ONE (14:42)
[2019-01-01 15:13] VITALS: TEMP 97.8
[2019-01-01 15:22] LABS: Glucose,Whole Blood 208 mg/dL (75-99)
[2019-01-01 15:25] VITALS: RESP 16
[2019-01-01 15:43] VITALS: BP 157/88; PULSE 93
--- NOTE | 2019-01-01 22:55 | OP ---
OPERATIVE REPORT DATE OF SURGERY: 01/01/2019 PREOPERATIVE DIAGNOSIS: Right neck mass. POSTOPERATIVE DIAGNOSIS: Right neck mass; final pathology pending. ANESTHESIA: General. OPERATIVE PROCEDURE: Excision of right neck mass with complex multiple layer closure. OPERATING SURGEON: Dr. Keron Xiao. COMPLICATIONS: None. ESTIMATED BLOOD LOSS: Less than 25 mL. Mass size approximately 1.5 cm. OPERATIVE PROCEDURE: The patient was placed on the operating table in the supine position, and after uneventful induction and endotracheal intubation, satisfactory general anesthesia was obtained. Next, the patient's right neck and flex-face was prepped and draped in the usual and customary fashion. The patient was draped in such a fashion as to leave the right corner of the patient's mouth visible so as to observe any stimulation of the marginal branch of the facial nerve. Next, the mass in question was palpated, which was located approximately 3 fingerbreadths inferior to the inferior border of the mandible and just anterior to the right external mastoid muscle. The mass was mobile, well-circumscribed, non-fluctuant. There appeared to be a fistula opening on the skin on the superior aspect of this mass. The proposed incision was outlined in an elliptical fashion using a [employer] marking pen. The proposed incision was made in such a fashion as to include the overlying skin and the opening of the possible fistula tract. Next, using a #10 scalpel, an incision was made through the skin down to the level of the subcutaneous tissue in the usual fashion. Next, using a combination of sharp and blunt dissection, the subcutaneous fat was identified. Once the dissection was carried completely around the incision, this allowed the skin portion of the mass which was being excised to be grasped with a pair of Cutler forceps and used for retraction. Next, again using a combination of blunt and sharp dissection, using Peanuts, a curved mosquito hemostat and electrocautery, the subcutaneous fat was dissected from around the mass. The dissection was carried deep down to the level of the platysma. Several bleeders were identified, and these were subsequently clamped and ligated with 4-0 silk suture. As the dissection proceeded deeper and around the mass, it was noted that the mass did at one point slightly penetrate the underlying platysma muscle, but not the fascia. Care was taken not to enter the region of the marginal branch of the facial nerve, and the right corner of the patient's mouth was carefully observed for any unusual stimulation. Dissection was carefully carried out around the mass so that the mass could be eventually excised en toto with a very minimal penetration of the platysmal muscle. The specimen along with the attached overlying skin was sent to Pathology in formalin for permanent sectioning. Hemostasis was obtained using low-wattage electrocautery. Next, closure was begun by initially using a 4-0 rapid-absorbing Vicryl in interrupted fashion to reapproximate the platysma muscle where it had been slightly violated. Next, the subcutaneous fat was approximated using 4-0 Vicryl in interrupted buried fashion. Next the subcutaneous tissue was reapproximated using 4-0 Vicryl in an interrupted buried fashion. Finally, the skin edges were further approximated using surgical moises in the usual fashion. No drains were inserted. At this point the procedure was terminated. This wound defect had been closed in multiple layers involving muscle, fat, subcutaneous tissue and skin and is therefore a complex closure. Estimated blood loss was less than 25 mL. The patient tolerated the procedure well and was returned to the recovery room in satisfactory condition. Final pathology is pending. MMODL / IJN: [id number] /
== END 2019-01-01 15:57 | disposition home or self-care (01) ==
LOC: OR 11:03
PROVIDERS: ATTEND Otolaryngology
DX: L72.0 Epidermal cyst (principal); L02.11 Cutaneous abscess of neck; L90.5 Scar conditions and fibrosis of skin; M79.89 Other specified soft tissue disorders; K50.90 Crohn's disease, unspecified, without complications; E11.9 Type 2 diabetes mellitus without complications; R56.9 Unspecified convulsions; H91.90 Unspecified hearing loss, unspecified ear; K21.9 Gastro-esophageal reflux disease without esophagitis; K22.6 Gastro-esophageal laceration-hemorrhage syndrome; R94.31 Abnormal electrocardiogram [ECG] [EKG]; Z79.52 Long term (current) use of systemic steroids; Z90.89 Acquired absence of other organs; Z98.890 Other specified postprocedural states; Z98.1 Arthrodesis status; Z79.899 Other long term (current) drug therapy; Z79.4 Long term (current) use of insulin; Z79.891 Long term (current) use of opiate analgesic
CPT/HCPCS: 93005; 88304; 11422; J2250; J1100 ×2; J2710; J2270; J0690; J2405; J2001; J3010; J0330; J2704

== ENCOUNTER → 2019-01-25 | Outpatient (CLI) | payer MEDICARE ==
[2019-01-25 16:23] LABS: Basophils # (A) 0.1 k/uL (0-0.2); Basophils % (A) 0 %; Eosinophils % (A) 0 %; HCT 48.2 % (39.0-53.0); HGB 16.6 gm/dL (13.0-17.5); Lymphocytes # (A) 2.1 k/uL (1.0-4.8); Lymphocytes % (A) 17 %; MCH 33.4 pg (25.0-35.0); MCHC 34.5 g/dL (31.0-37.0); MCV 96.7 fL (80.0-100.0); Mean Platelet Volume 8.4; Monocytes # (A) 0.9 k/uL (0-1.0); Monocytes % (A) 7 %; Neutrophils # (A) 9.1 k/uL (1.3-7.7); Neutrophils % (A) 74 %; Platelet Count 392 k/uL (150-450); RBC 4.99 m/uL (4.30-5.90); RDW 13.4 % (11.5-15.5); WBC 12.3 k/uL (3.8-10.6)
[2019-01-25 17:25] LABS: Erythrocyte Sedimentation Rate 12 mm/hr (0-15)
[2019-01-26 00:34] LABS: African American GFR (CKD) 83.5 (60.0-200.0); Albumin 4.9 g/dL (3.80-4.90); Albumin/Globulin Ratio 2.33 (1.60-3.17); Anion Gap 21.4 mmol/L (4.00-12.00); BUN/Creat Ratio 6.36 Ratio (12.00-20.00); C Reactive Protein 0.6 mg/dL (0.0-0.8); Calcium 11.2 mg/dL (8.7-10.3); Carbon Dioxide 27.6 mmol/L (21.6-31.8); Globulin 2.1 g/dL (1.6-3.3); Non-African American GFR(CKD) 72.1 (60.0-200.0); Potassium 3.7 mmol/L (3.5-5.5); Total Bilirubin 1.1 mg/dL (0.3-1.2)
== END | disposition home or self-care (01) ==
LOC: LABWHC1 14:44
PROVIDERS: ATTEND Physician Assistant
DX: K50.80 Crohn's disease of both small and large intestine without complications (principal)
CPT/HCPCS: 36415; 80053; 85025; 85652; 86140